=== PATIENT | female | born 1980 | race Caucasian/White ===

== ENCOUNTER 2017-08-16 17:29 | Emergency (ER) | payer BC ==
[~2017-08-16] VITALS: Ht 170.2 cm; Wt 145.2 kg
[~2017-08-16 17:29] MED LIST: CHOLESTYRAMINE P4 GM PO; IBUPROFEN800 MG PO; KEFLEX500 MG PO; MACROBID 100 M100 MG PO; NORCO 5-325 TA1 EACH PO; PEPCID20 MG PO; PERCOCET 5-3251 EACH PO; PROTONIX40 MG PO; PYRIDIUM200 MG PO; SYNTHROID125 MCG PO; ZOFRAN ODT8 MG SL
[2017-08-16] MEDS ORDERED: ZITHROMAX250 MG PO (18:34)
[2017-08-16] MEDS ORDERED: TESSALON PERLE100 MG PO (18:34)
== END 2017-08-16 19:00 | disposition home or self-care (01) ==
LOC: ED 17:29
DX: J40 Bronchitis, not specified as acute or chronic (principal); E89.0 Postprocedural hypothyroidism; Z98.51 Tubal ligation status; Z96.0 Presence of urogenital implants; Z87.442 Personal history of urinary calculi; Z85.850 Personal history of malignant neoplasm of thyroid
CPT/HCPCS: 99283

== ENCOUNTER 2017-08-23 17:32 | Inpatient (IN) | payer BC ==
[~2017-08-23] VITALS: Ht 170.2 cm; Wt 147.9 kg
[~2017-08-23 17:32] MED LIST changes: +TESSALON PERLE100 MG PO; +ZITHROMAX250 MG PO
--- NOTE | 2017-08-23 23:30 | NUR ---
37YR OLD WOMAN ADMITTED FROM ER VIA STRETCHER TO ROOM 112 ACCOMPANIED BY . PT IS ALERT, ORIENTED, ABLE TO STAND AND TRANSFER TO BED WITH MIN ASSIST. SOB WITH ANY EXHERTION, O2 4L/NC. POSITIONED FOR COMFORT WITH HOB UP 30 DEG. ORIENTED TO ROOM AND CALL LIGHT, ORDERS NOTED. DENIES FURTHER NEEDS.
--- NOTE | 2017-08-24 00:19 | NUR ---
PT C/O INCREASING PAIN MID CHEST THRU TO BACK, MAINTAINING OXIMETER 95% ON 4L/NC. FENTANYL 25MCG GIVEN FOR 7/10 PAIN, ASSISTED WITH REPOSITIONING. IS GOING HOME FOR THE EVENING. CALL LIGHT IN EASY REACH.
--- NOTE | 2017-08-24 00:50 | NUR ---
REQUESTED PAIN MEDICATION FOR 5/10 PAIN MID CHEST INTO BACK, COUGH IS BETTER. FENTANYL 25MCG IV GIVEN, ASKED IF SHE CAN HAVE A SANDWICH. BIOSTATISTICS TEACHER NOTIFIED.
--- NOTE | 2017-08-24 01:45 | NUR ---
PT RESTING WITH EYES CLOSED, DENIES DISCOMFORT AT THIS TIME, DECLINES MOTRIN, RESP EVEN AND UNLABORED, OXIMETER 97%, O2 4L/NC. ATE 100% BOX LUNCH PROVIDED. CALL LIGHT IN EASY REACH.
--- NOTE | 2017-08-24 04:45 | NUR ---
SLEEPING, RESP EVEN AND UNLABORED, OXIMETER 96%, CALL LIGHT IN EASY REACH.
--- NOTE | 2017-08-24 05:23 | NUR ---
PAIN MUCH BETTER THIS AM, FENTANYL 25MCG GIVEN X2, ATE BOX LUNCH, LUNGS REMAIN COURSE, INS/EXP WHEEZES THRU OUT. O2 @ 4L/NC. TELE #10 HRR-70S, OXIMETER 97%. HAS NOT BEEN ABLE TO COUGH FOR SPUTUM SAMPLE YET. INSTRUCTIONS GIVEN.
--- NOTE | 2017-08-24 05:45 | NUR ---
LAB IN TO DRAW BLOOD, SBA INTO BATHROOM FOR BM, ONLY MILD SOB WITH ACTIVITY THIS MORNING. TYLENOL GIVEN FOR CABA. MENU GIVEN FOR BREAKFAST.
--- NOTE | 2017-08-24 07:31 | NUR ---
report given from malathi gandara.
--- NOTE | 2017-08-24 07:42 | EKG ---
[facility] [address] [facility] [place] [address] Signed Sinus tachycardia Possible Left atrial enlargement ST \T\ T wave abnormality, consider inferior ischemia Abnormal ECG No previous ECGs available Confirmed by LAVELLE YEUNG MD ([id number]) on 08/24/2017 7:42:16 AM Electronically Signed By: LAVELLE YEUNG MD 08/24/17 0742 PATIENT NAME: MARANDA JOHNSON Electrocardiogram DATE OF : 84 PHYSICIAN: LAVELLE YEUNG MD REPORT #: [id number] REPORT IS CONFIDENTIAL AND NOT TO BE RELEASED WITHOUT AUTHORIZATION
--- NOTE | 2017-08-24 08:20 | NUR ---
PATIENT SLEEPING WITH HOB ELEVATED. WOKE FOR ASSESSMENT. LUNGS COARSE. CONT TO BE ON 4 L PER NC. PATIENT REPORTS INCREASE CHEST AND BACK PAIN WITH COUGH. STATING, " FEELS LIKE SOMEONE IS PUNCHING ME IN THE CHEST". SCHEDULED MOTRIN GIVEN. PRN PAIN MEDICATION GIVEN. PATIENT SAT UP FOR BREAKFAST. SPUTUM SENT TO LAB. SET UP FOR URINE SAMPLE. UPDATED PATIENT ABOUT PLAN OF CARE FOR SHIFT.
--- NOTE | 2017-08-24 08:24 | NUR ---
SET UP SHOWER FOR PATIENT. SHE IS SITTING UP IN BED EATING BREAKFAST.
--- NOTE | 2017-08-24 10:30 | NUR ---
patient given fentenyl for pain medication. titrated to 3 l per nc. scheduled cipro iv started. tesslon perrel given to assist with cough. patient stated that she does not have to void at this time.
--- NOTE | 2017-08-24 11:15 | NUR ---
antibiotic finished. iv flushed. updated dr. norton on patients continue. continue current pain medication plan.
--- NOTE | 2017-08-24 12:14 | NUR ---
PATIENT AMBULATED TO THE BR ON RA. DESATED TO 89 PERCENT. PLACED 3 L ON NC ON PATINET WHEN UP TO 92 PERCENT. PATIENT VOIDED 250MLS OF DARK URINE OUT. SENT TO LAB. PATIENT REQUESTING MORE PAIN MEDICATION AT THIS TIME. PATIENT STATING NO HUNGERY AT THIS TIME.
--- NOTE | 2017-08-24 12:34 | NUR ---
FENTENYL GIVEN FOR 5/10 CHEST AND BACK PAIN.
--- NOTE | 2017-08-24 14:30 | NUR ---
patient assisted into shower. patient had one episode of loose stool. tolerated shower well remains on 2 l per nc sating at 95 percent.
--- NOTE | 2017-08-24 14:56 | NUR ---
patient given fentenyl for pain. scheduled motrin. patient rating pain 5/10. stating that it does improve with pain medication. order lunch at this time. no other needs at this time.
--- NOTE | 2017-08-24 16:00 | NUR ---
PATIENT MOVED ROOMS. IV INFILTRATED. HOLD NEW IV ANTIBIOTIC UNTIL NEW IV.
--- NOTE | 2017-08-24 16:52 | NUR ---
AFTER 4 ATTEMPTS NEW IV STARTED. ANTIBIOTIC STARTED. PAIN MEDICATION GIVEN. PATIENT SET UP FOR DINNER. FAMILY IN ROOM.
--- NOTE | 2017-08-24 17:00 | NUR ---
titrated to ra. will continue to monitor patient. patient tolerating at this time. wob not increased. educated to call if feel sob and feeling like she needs the oxygen. sat monitor in place for constant monitoring.
--- NOTE | 2017-08-24 18:06 | NUR ---
patient finished dinner. tolerating 100 percent of dinner. iv cont to infuse cont to be on ra. tolerating with a sat of 93 percent.
--- NOTE | 2017-08-24 18:17 | NUR ---
titrated to ra. patient had shower today. scheduled motrin, prn tylenol, and prn fetenyl given for pain. patient c/o chest and back pain from coughing. tesslon perals added to assist with cough. sputum sent down and awaiting cx. urine sent down. voiding minimal/ qs. encourage to take po. regular diet. stby assist to br. plan for scheduled echo today.
--- NOTE | 2017-08-24 19:57 | NUR ---
PT UP IN BED. FRIEND AT BEDSIDE. PAIN 12/01 GAVE MOTRIN. NS RUNNING @ 35. IV IN LEFT FORARM. SIDERAILS UPX2. RESPIRATIONS EQUAL AND UNLABBORED. DRY COUGH PRESENT WITH DEEP BREATHING. LUNGS SOUND COARSE IN THE BASES.
--- NOTE | 2017-08-24 22:26 | NUR ---
NURSE NOTIFIED RE LOW OUTPUT.
--- NOTE | 2017-08-25 01:02 | NUR ---
PT SLEEPING COMFORTABLY. NO SIGNS OF DISTRESS AT THIS TIME. CALL LIGHT WITHIN REACH
--- NOTE | 2017-08-25 02:17 | NUR ---
PT SLEEPING. ON TELE 10. HEART RATE 60 IN SYNUS RHYTHM. RESPIRATIONS ARE EQUAL AND NON LABORED. NO INDIUCATION OF PAIN OR DISTRESS AT THIS TIME.
--- NOTE | 2017-08-25 03:13 | NUR ---
PT SLEEPING. SCHEDULED MOTRIN GIVEN. REPORTS NO PAIN AT THIS TIME. CLIDAMYCIN INFUSING. CALL LIGHT AND PERSONAL ITEMS WITHIN REACH.
--- NOTE | 2017-08-25 04:55 | NUR ---
PT HAD UNEVENTFUL NIGHT. SLEPT THROGHOUT THE NIGHT. CLYDOMYCIN GIVEN. TESLON PEARLS AND MOTRIN GIVEN. ECHO PLANNED FOR TODAY.
--- NOTE | 2017-08-25 07:10 | NUR ---
RECIEVED BEDSIDE REPORT FROM JAVI THOMPSON. PT AWAKE, ALERT, DENIED NEEDS.
--- NOTE | 2017-08-25 08:10 | NUR ---
PATIENT RESTING IN BED. PATIENT REFUSED SHOWER. TECH IN ROOM FOR ECHO. WILL APROACH PATIENT ABOUT ADLS LATER THIS AM.
--- NOTE | 2017-08-25 08:16 | NUR ---
NINOSKA, GRIP WRAPPER IN ROOM WITH PT, PREPARING TO DO ECHO. PT GIVEN AM MEDICATIONS. DENIED OTHER NEEDS, ASIDE FROM ACETAMINOPHEN FOR PAIN TO ABDOMEN. GAVE PRN ACETAMINOPHEN.
--- NOTE | 2017-08-25 09:06 | NUR ---
TOOK PT TO THE BR
--- NOTE | 2017-08-25 09:39 | NUR ---
PATIENT RESTING IN BED HANDS AND FACE WASHED. ORAL CARE SET UP FOR USE IN BATHROOM. TALKED TO PATIENT ABOUT BATH WIPES AND CLEAN GOWN FOR THE NEXT TIME SHE GETS UP TO THE BATHROOM. NO OTHER NEEDS AT THIS TIME. FRESH ICE WATER GIVEN. CALL BUTTON IN REACH.
--- NOTE | 2017-08-25 10:11 | NUR ---
MED REC COMPLETE
--- NOTE | 2017-08-25 11:06 | NUR ---
PT IN BED, WATCHING TV. DENIED NEEDS. REPORTED THAT SHE IS HAVING NO PAIN AT THIS TIME.
--- NOTE | 2017-08-25 11:57 | NUR ---
pastoral care into see patient.
--- NOTE | 2017-08-25 13:17 | NUR ---
PATIENT SITTING UP IN BED WATCHING TV. PATIENT ASKED WHEN THE DRSandrine WILL BE IN. SHE STATES THAT SHE'S GETTING RESTLESS. FRESH ICE WATER GIVEN. NO OTHER NEEDS AT THIS TIME.
--- NOTE | 2017-08-25 13:20 | NUR ---
PT SITTING UP IN BED. DENIED PAIN. DENIED NEEDS. REPORTED APETITE AT LUNCH WAS POOR, AND THAT SHE ONLY ATE A LITTLE OF HER LUNCH.
--- NOTE | 2017-08-25 13:48 | NUR ---
PT RESTING-LUNCH WAS BROUGHT BUT HAD YET TO EAT. A LITTLE DROWSY, SAID THIS IS SOMETHING NEW TO HER, WILL LET HER REST-EXTENDED A BLESSING AND WILL FOLLOW NEEDED
[2017-08-25] MEDS ORDERED: IBUPROFEN400 MG PO (13:54)
[2017-08-25] MEDS ORDERED: CLINDAMYCIN HC300 MG PO (13:56)
[2017-08-25] MEDS ORDERED: COLCHICINE0.6 M1 PO (13:57)
[2017-08-25] MEDS ORDERED: PANTOPRAZOLE SO40 MG PO (13:57)
--- NOTE | 2017-08-25 15:33 | NUR ---
GAVE PT DISCHARGE INSTURCTIONS. GAVE PT PRINTED EDUCATION FOR ALL MEDICATIONS THAT SHE IS DISCHARGING ON. PROVIDED VERBAL EDUCATION REGARDING THE PURPOSE FOR EACH MEDICATION, WELL POTENTIAL SIDE EFFECTS TO WATCH FOR FOR EACH MEDICATION. PT VERBALIZED UNDERSTANDING.
[2017-10-11] MEDS ORDERED: NORCO 5-325 TA1 EACH PO (22:20)
[2017-10-11] MEDS ORDERED: IBUPROFEN600 MG PO (22:20)
== END 2017-08-25 15:55 | disposition home or self-care (01) | DRG 314 ==
LOC: ED 17:32 → MS 23:05
PROVIDERS: ADMIT Internal Medicine
DX: I30.9 Acute pericarditis, unspecified (principal); J12.9 Viral pneumonia, unspecified; K52.9 Noninfective gastroenteritis and colitis, unspecified; Z85.850 Personal history of malignant neoplasm of thyroid; Z90.49 Acquired absence of other specified parts of digestive tract
CPT/HCPCS: 36415; 71010; 71260; 80048; 80053; 83520; 83735; 84484; 84703; 85025; 85379; 85651; 86038; 86140; 86225; 86235; 86255; 86256; 87070; 87205; 87449; 87502; 93005; 93010; 93306; 94640; 96374; 96375; 99285; J1885; J2930; J3010; Q9967

== ENCOUNTER 2019-07-09 09:01 | Emergency (ER) | payer BC ==
[~2019-07-09] VITALS: Ht 170.2 cm; Wt 140.7 kg
--- OUTSIDE RECORDS SUMMARY | ~2019-07-09 | XMS | Encounter Summary ---
Demographics + + + | Address | [address] | | | [place] [address] | + + + | Home Phone | | + + + | Preferred Language | Unknown | + + + | Marital Status | | + + + | Yazidism Affiliation | Unknown | + + + | Race | Unknown | + + + | Ethnic Group | Unknown | + + + Author + + + | Author | [facility] | | | and [place] | + + + | Organization | [facility] | | | and [place] | + + + | Address | Unknown | + + + | Phone | Unavailable | + + + Support + + + + + | Name | Relationship | Address | Phone | + + + + + | Ulisses Barcenas | ECON | [address] | | | [place] | | [place] [address] | | + + + + + | Gita Merino | ECON | [address] | | | | | [place], | | | | | [place] [address] | | + + + + + Care Team Providers + +------+ + | Care Heel Stainer Name | Role | Phone | + +------+ + PCP | Unavailable | + +------+ + Encounter Details +--------+ + + + + | Date | Type | Department | Care Team | Description | +--------+ + + + + | 03/10/ | Hospital | [facility] | Britta Pollockncer Saqib, | | | 2011 - | Encounter | [facility] CTR [facility] | [address] | | | | | [address] [place] | [place] | | | 03/11/ | | [place] [address] | [address] | | | 2011 | | [phone] | [phone] | | | | | | | | +--------+ + + + + Social History + +-------+ +--------+------+ | Tobacco Use | Types | Packs/Day | Years | Date | | | | | Used | | + +-------+ +--------+------+ | Never Assessed | | | | | + +-------+ +--------+------+ + + + | Sex Assigned at | Date Recorded | | | | + + + | Not on file | | + + + + + + + | Job Start Date | Occupation | Industry | + + + + | Not on file | Not on file | Not on file | + + + + + + + + | Travel History | Travel Start | Travel End | + + + + + + | No recent travel history available. | + + documented as of this encounter Discharge Summaries Wagner Pollock MD - 03/10/2012 9:31 AM PDTADMISSION DATE: 03/10/2012 DISCHARGE DATE: 03/11/2012 ADMITTING DIAGNOSIS: Papillary thyroid carcinoma, follicular variant, pathologic T1a N0 M X. DISCHARGE DIAGNOSIS: THYROID PAPILLARY CARCINOMA, FOLLICULAR VARIANT, PATHOLOGIC T1A N0 M X. HOSPITAL COURSE: The patient did undergo a total thyroidectomy on 01/26/2012 and now pres ents for an iodine-131 ablation. She was given approximately 50 mCi of iodine-131 on 03/10 and because she did have young children at home , she was brought into the hospital u ntil doses had dropped to sufficient levels. The patient did not experience any acute side effects or toxicity from her treatment while she was in the hospital. The following morning on 03/12/2012 the levels had dropped suffi ciently that she was able to be discharged to home. DISCHARGE INSTRUCTIONS: The patient was instructed to resume her thyroid replacement as p rescirbed by Dr. Masters the day following discharge and to reinitiate the levothyroxine at 150 mcg daily, which is the dose she had been on prior to her ablation. She was to resume a normal diet on 03/12/2012 but was to avoid preparing food for anybody but herself for the following 7 days. She is to follow up with Dr. Masters in the near future for continued th yroid management. She will return and see me following her post iodine-131 scan. She was to call with any questions or concerns prior to that time. DICTATED BY: Wagner Pollock MD Radiation Oncology JOB #: [id number] EXT JOB #:[id number] <Electronicall y Signed by Wagner Pollock MD> 03/25/121952 documented in this encounter Plan of Treatment Not on filedocumented as of this encounter Visit Diagnoses Not on filedocumented in this encounter"
--- OUTSIDE RECORDS SUMMARY | ~2019-07-09 | XMS | Encounter Summary ---
Demographics + + + | Address | [address] | | | [place] [address] | + + + | Home Phone | | + + + | Preferred Language | Unknown | + + + | Marital Status | | + + + | Advent Affiliation | Unknown | + + + | Race | Unknown | + + + | Ethnic Group | Unknown | + + + Author + + + | Author | [facility] | | | and [place] | + + + | Organization | [facility] | | | and [place] | [...] | | [place] | | [place] [address] | | + + + + + | Gita Merino | ECON | [address] | | | | | [place], | | | | | [place] [address] | | + + + + + Care Team Providers + +------+ + | Care Big Data Lead Name | Role | Phone | + +------+ + PCP | Unavailable | + +------+ + Encounter Details +--------+ + + + + | Date | Type | Department | Care Team | Description | +--------+ + + + + | 03/10/ | Hospital | [facility] | Britta Pollockncer Saqib, | | | 2011 - | Encounter | MED CTR MEDICAL | [address] | | | | | [address] [place] | [place] | | | 03/11/ | | [place] [address] | [address] | | | 2011 | | [phone] | [phone] | | | | | | | [...] Wagner Pollock MD Radiation Oncology JOB #: [id number] EXT JOB #:[id number] <Electronicall y Signed by Wagner Pollock MD> 03/25/121952 documented in this encounter Plan of Treatment Not on filedocumented as of this encounter Visit Diagnoses Not on filedocumented in this encounter"
--- OUTSIDE RECORDS SUMMARY | ~2019-07-09 | XMS | Encounter Summary ---
Demographics + + + | Address | [address] | | | [place] [address] | + + + | Home Phone | | + + + | Preferred Language | Unknown | + + + | Marital Status | | + + + | Jew Affiliation | Unknown | + + + | Race | Unknown | + + + | Ethnic Group | Unknown | + + + Author + + + | Author | [facility] | | | and [place] | + + + | Organization | [facility] | | | and [place] [...] | | [place] | | [place] [address] | | + + + + + | Gita Merino | ECON | [address] | | | | | [place], | | | | | [place] [address] | | + + + + + Care Team Providers + +------+ + | Care Personnel Records Clerk Name | Role | Phone | + +------+ + PCP | Unavailable | + +------+ + Encounter Details +--------+ + + + + | Date | Type | Department | Care Team | Description | +--------+ + + + + | 03/10/ | Hospital | [facility] | Phill Wagner Saqib, | | | 2011 | Encounter | MED CTR XRAY [address] | MD [address] | | | | | [place] | [place], [place] | | | | | [place] [address] | [address] | | | | | [phone] | [phone] | | | | | | | [...]
--- OUTSIDE RECORDS SUMMARY | ~2019-07-09 | XMS | Encounter Summary ---
Demographics + + + | Address | [address] | | | [place] [address] | + + + | Home Phone | | + + + | Preferred Language | Unknown | + + + | Marital Status | | + + + | Jehovah'S Witness Affiliation | Unknown | + + + | Race | Unknown | + + + | Ethnic Group | Unknown | + + + Author + + + | Author | [facility] | | | and [place] | + + + | Organization | [facility] | | | and [place] | + + + | Address | Unknown | + + + | Phone | Unavailable | + + + Support + + + + + | Name | Relationship | Address | Phone | + + + + + | Ulisses Barcenas | ECON | [address] | | | [place] | | [place] [address] | | + + + + + | Gita Merino | ECON | [address] | | | | | [place], | | | | | [place] [address] | | + + + + + Care Team Providers + +------+ + | Care [place] Administrator Name | Role | Phone | + +------+ + PCP | Unavailable | + +------+ + Encounter Details +--------+ + + + + | Date | Type | Department | Care Team | Description | +--------+ + + + + | 04/01/ | Hospital | [facility] | Wagner Pollock, | | | 2013 | Encounter | MED CTR CANCER | [place] [address] | | | | | [place] [address] | [place], [place] | | | | | [place], [place] | [address] | | | | | [address] | [phone] | | | | | [phone] | | | +--------+ + + + [...]
--- OUTSIDE RECORDS SUMMARY | ~2019-07-09 | XMS | Encounter Summary ---
Demographics + + + | Address | [address] | | | [place] [address] | + + + | Home Phone | | + + + | Preferred Language | Unknown | + + + | Marital Status | | + + + | Congregational Affiliation | Unknown | + + + | Race | Unknown | + + + | Ethnic Group | Unknown | + + + Author + + + | Author | [facility] | | | and [place] | + + + | Organization | [facility] | | | and [place] | + + + | Address | Unknown | + + + | Phone | Unavailable | + + + Support + + + + + | Name | Relationship | Address | Phone | + + + + + | Ulisses Barcenas | ECON | [address] | | | [place] | | [place] [address] | | + + + + + | Gita Merino | ECON | [address] | | | | | [place], | | | | | [place] [address] | | + + + + + Care Team Providers + +------+ + | Care Quiller Operator Name | Role | Phone | + +------+ + | Kajal Hernandez | PCP | | | MD | | | + +------+ + Reason for Visit +--------+ + | Reason | Comments | +--------+ + | URI | x 1 wk; purulent phlegm/sinus drainage, bilateral hearing loss | +--------+ + Encounter Details +--------+---------+ + + + | Date | Type | Department | Care Team | Description | +--------+---------+ + + + | 10/29/ | Office | [facility] | Ines Barker | Allergic rhinitis, | | 2019 | Visit | [address] [address] | [address]LU[address] | unspecified | | | | [address] | DORITA VAZQUEZ | seasonality, | | | | [address] [facility] | [place] [address] | unspecified trigger | | | | [place] [address] | [phone] | (Primary Dx) | | | | [phone] | | | +--------+---------+ + + + Social History + +-------+ +--------+------+ | Tobacco Use | Types | Packs/Day | Years | Date | | | | | Used | | + +-------+ +--------+------+ | Never Smoker | | | | | + +-------+ +--------+------+ + +---+---+---+ | Smokeless Tobacco: | | | | | Never Used | | | | + +---+---+---+ + + | Tobacco Cessation: Counseling Given: No | + + + + +---------+ + | Alcohol Use [...] + + + | Blood Pressure | 120/80 | 10/29/2018 6:26 PM | | | | | PST | | + + + + + | Pulse | 92 | 10/29/2018 6:26 PM | | | | | PST | | + + + + + | Temperature | 36.8 C (98.3 F) | 10/29/2018 6:26 PM | | | | | PST | | + + + + + | Respiratory Rate | 20 | 10/29/2018 6:26 PM | | | | | PST | | + + + + + | Oxygen Saturation | 98% | 10/29/2018 6:26 PM | | | | | PST | | + + + + + | Inhaled Oxygen | - | - | | | Concentration | | | | + + + + + | Weight | - | - | | + + + + + | Height | 170.2 cm (5' 7") | 10/29/2018 6:26 PM | | | | | PST | | + + + + + | Body Mass Index | - | - | | + + + + + documented in this encounter Patient Instructions Patient Instructions Mj Inesандрей Goetz, JLUIS - 10/29/2018 6:51 PM PST Allergic Rhinitis Allergic rhinitis is an allergic reaction that affects the nose, and often the eyes. It s often known asnasal allergies. Nasal allergies are often due to things in the environment that are breathed in. Depending what you are sensitive to, nasal allergies may occur only d uring certain seasons. Or they may occur year round. Common indoor allergens include house d ust mites, mold, cockroaches, and pet dander. Outdoor allergens include pollen from trees, g rasses, and weeds. Symptoms include a drippy, stuffy, and itchy nose. They also include sneezing and red and i tchy eyes. You may feel tired more often. Severe allergies may also affect your breathing an d trigger a condition called asthma. Tests can be done to see what allergens are affecting you. You may be referred to an allerg y specialist for testing and further evaluation. Home care Your healthcare provider may prescribe medicines to help relieve allergy symptoms. These ma y include oral medicines, nasal sprays, or eye drops. Ask your provider for advice on how to avoid substances that you are allergic to.Below ar e a few tips for each type of allergen. Pet dander: Do not have pets with fur and feathers. If you can't avoid having a pet, keep it out of your bedroom and off upholstered furnitu re. Pollen: When pollen counts are high, keep windows of your car and home closed. If possible, use an air conditioner instead. Wear a filter mask when mowing or doing yard work. House dust mites: Wash bedding every week in warm water and detergent and dry on a hot setting. Cover the mattress, box spring, and pillows with allergy covers. If possible, sleep in a room with no carpet, curtains, or upholstered furniture. Cockroaches: Store food in sealed containers. Remove garbage from the home promptly. Fix water leaks Mold: Keep humidity low by using a dehumidifier or air conditioner. Keep the dehumidifier and air conditioner clean and free of mold. Clean moldy areas with bleach and water. In general: Vacuum once or twice a week. If possible, use a vacuum with a high-efficiency particulat e air (HEPA) filter. Do not smoke. Avoid cigarette smoke. Cigarette smoke is an irritant that can make sympto ms worse. Follow-up care Follow up as advised by the healthcare provider or our staff. If you were referred to an al bismarkgy specialist, make this appointment promptly. When to seek medical advice Call your healthcare provider right away if the following occur: Coughing or wheezing Fever of 100.4F (38C) or higher, or as directed by your healthcare provider Raised red bumps (hives) Continuing symptoms, new symptoms, or worsening symptoms Call 911if you have: Trouble breathing Severe swelling of the face or severe itching of the eyes or mouth Date Last Reviewed: 10/22/201619994241-9810 [employer]. [address] [place] [address]. All righ ts reserved. This information is not intended as a substitute for professional medical care. Always follow your healthcare professional's instructions. Treating Viral Respiratory Illness in Children Viral respiratory illnesses include colds, the flu, and RSV (respiratory syncytial virus). Treatment will focus on relieving your child s symptoms and ensuring that the infection do es not get worse. Antibiotics are not effective against viruses. Always see your child s h ealthcare providerif your child has trouble breathing. Helping your child feel better Give your child plenty offluids, such as water or apple juice. Make sure your child gets plenty of rest. Keep your infant s nose clear. Use a rubber bulb suction device to remove mucus as nee ded. Don't be aggressive when suctioning. This may cause more swelling and discomfort. Raisethe head ofyour child's bed slightlyto make breathing easier. Run a cool-mist humidifier or vaporizer in your child s room to keep the air moist and nasal passages clear. Don't let anyonesmoke near your child. Treat your child s fever with acetaminophen. In infants 6 months or older, you may use ibuprofeninstead to help reduce the fever. Never give aspirin to a child under age 18. It could cause a rare but serious condition called Kimberly syndrome. When to seek medical care Most children get over colds and flu on their own in time, with rest and care from you. Daljit stanley your child'shealthcare provider if your child: Has a fever of 100.4F (38C) in a baby younger than 3 months Has a repeated fever of 104F (40C) or higher Has nausea or vomiting, orcan t keep even small amounts of liquid down Hasn t urinated for 6 hours or more, or has dark or strong-smelling urine Has a harshcough, a cough that doesn't get better, wheezing,or trouble breathing Has bad or increasing pain Develops a skin rash Is very tired or lethargic Develops a blue color to the skin around the lips or on the fingers or toes Date Last Reviewed: 08/24/201619993569-6718 [employer]. [address] [place] [address]. All righ ts reserved. This information is not intended as a substitute for professional medical care. Always follow your healthcare professional's instructions. documented in this encounter Progress Notes Ines Barker ARNP - 10/29/2018 6:20 PM PSTFormatting of this note might be differen t from the original. Subjective: Supriya Alvarez is a 38 y.o. female who presents to the clinic with a complaint of URI (x 1 wk; purulent phlegm/sinus drainage, bilateral hearing loss) URI This is a new problem. The current episode started in the past 7 days. The problem has been gradually worsening. There has been no fever. Associated symptoms include congestion, cough ing, ear pain, headaches, rhinorrhea, sneezing and a sore throat. Pertinent negatives includ e no plugged ear sensation or wheezing. Allergies Allergen Reactions Gabapentin Swelling Metronidazole Rash Medications: Patient Reported Taking Dosage cholestyramine light (QUESTRAN) 4 g packet (Taking) Take 4 g by mouth Daily. Number of times this order has been changed since signin Order Audit Ringold ibuprofen (ADVIL, MOTRIN) 200 mg tablet (Taking) Take 400 mg by mouth Daily as needed. levothyroxine (SYNTHROID) 150 mcg tablet (Taking) levothyroxine (SYNTHROID) 200 mcg tablet (Taking/Discontinued) Take 125 mcg by mouth ever y morning (before breakfast). Number of times this order has been changed since signin Order Audit Ringold Past Medical History She has a past medical history of Cancer (HCC); DDD (degenerative disc disease), lumbar (); Left lumbar radiculitis (09/16/2013); and Thyroid disease. Past Surgical History She has a past surgical history that includes Thyroidectomy (2011); Tonsillectomy; Cholecys tectomy; section; Tubal ligation; and kidney stent (2005,2007,2009). Social History Substance Use Topics Smoking status: Never Smoker Smokeless tobacco: Never Used Alcohol use No Review of Systems Constitutional: Positive for fatigue. Negative for fever. HENT: Positive for congestion, ear pain, postnasal drip, rhinorrhea, sneezing and sore thro at. Respiratory: Positive for cough. Negative for shortness of breath and wheezing. Neurological: Positive for headaches. See HPI Objective: Vitals: 10/29/18 1826 BP: 120/80 Pulse: 92 Resp: 20 Temp: 36.8 C (98.3 F) TempSrc: Oral SpO2: 98% Height: 1.702 m (5' 7") No LMP recorded. Physical Exam Constitutional: She is oriented to person, place, and time. Vital signs are normal. She yasmani ears well-developed and well-nourished. She is cooperative. She does not appear ill. No dist ress. HENT: Head: Normocephalic and atraumatic. Right Ear: Hearing, tympanic membrane, external ear and ear canal normal. Tympanic membrane is not erythematous and not bulging. Left Ear: Hearing, tympanic membrane, external ear and ear canal normal. Tympanic membrane is not erythematous and not bulging. Nose: Mucosal edema present. No rhinorrhea. Right sinus exhibits no frontal sinus tendernes s. Left sinus exhibits no frontal sinus tenderness. Mouth/Throat: Uvula is midline, oropharynx is clear and moist and mucous membranes are norm al. No trismus in the jaw. No uvula swelling. No oropharyngeal exudate, posterior oropharyng eal edema, posterior oropharyngeal erythema or tonsillar abscesses. Eyes: Pupils are equal, round, and reactive to light. Conjunctivae and lids are normal. Neck: Neck supple. Cardiovascular: Normal rate, regular rhythm and normal heart sounds. Pulmonary/Chest: Effort normal and breath sounds normal. No stridor. No respiratory distres s. She has no wheezes. Lymphadenopathy: She has no cervical adenopathy. Neurological: She is alert and oriented to person, place, and time. Skin: Skin is warm and dry. No rash noted. Psychiatric: She has a normal mood and affect. Her behavior is normal. Nursing note and vitals reviewed. No results found for this or any previous visit (from the past 24 hour(s)). Assessment: 1. Allergic rhinitis, unspecified seasonality, unspecified trigger Plan: 1. Allergic rhinitis, unspecified seasonality, unspecified trigger See AVS for patient instructions. Diagnosis and plan including medications and side effects were discussed with the patient a nd information handout was given. Patient voices understanding of the plan and all questions were answered. No Follow-up on file. documented in this encounter Plan of Treatment Not on filedocumented as of this encounter Visit Diagnoses + + | Diagnosis | + + | Allergic rhinitis, unspecified seasonality, unspecified trigger - Primary | + + documented in this encounter
--- OUTSIDE RECORDS SUMMARY | ~2019-07-09 | XMS | Encounter Summary ---
Demographics + + + | Address | [address] | | | [place] [address] | + + + | Home Phone | | + + + | Preferred Language | Unknown | + + + | Marital Status | | + + + | Episcopal Affiliation | Unknown | + + + | Race | Unknown | + + + | Ethnic Group | Unknown | + + + Author + + + | Author | [facility] | | | and [place] | + + + | Organization | [facility] | | | and [place] | + + + | Address | Unknown | + + + | Phone | Unavailable | + + + Support + + + + + | Name | Relationship | Address | Phone | + + + + + | Ulisses Bacrenas | ECON | [address] | | | [place] | | [place] [address] | | + + + + + | Gita Merino | ECON | [address] | | | | | [place], | | | | | [place] [address] | | + + + + + Care Team Providers + +------+ + | Care Supervisor Hot Dip Tinning Name | Role | Phone | + +------+ + | Kajal Hernandez | PCP | | | MD | | | + +------+ + Reason for Visit + + + | Reason | Comments | + + + | Headache (Adult - | | | New Onset Or New | | | Symptoms) | | + + + Encounter Details +--------+ + + + + | Date | Type | Department | Care Team | Description | +--------+ + + + + | 03/22/ | Emergency | [facility] | Hal Dominguez | Headache, | | 2017 | | [facility] | MD [place] [address] | unspecified headache | | | | CENTER [address] | [address] | type (Primary Dx); | | | | [place] | [place] [address] | Acute pain; Nausea | | | | [address] | [phone] | | | | | [phone] | | | +--------+ + + + [...] + + + | Blood Pressure | 130/67 | 03/22/2017 8:18 PM | | | | | PDT | | + + + + + | Pulse | 70 | 03/22/2017 8:18 PM | | | | | PDT | | + + + + + | Temperature | 35.7 C (96.3 F) | 03/22/2017 6:00 PM | | | | | PDT | | + + + + + | Respiratory Rate | 16 | 03/22/2017 8:18 PM | | | | | PDT | | + + + + + | Oxygen Saturation | 96% | 03/22/2017 8:18 PM | | | | | PDT | | + + + + + | Inhaled Oxygen | - | - | | | Concentration | | | | + + + + + | Weight | 149.7 kg (330 lb) | 03/22/2017 6:00 PM | | | | | PDT | | + + + + + | Height | 170.2 cm (5' 7") | 03/22/2017 6:00 PM | | | | | PDT | | + + + + + | Body Mass Index | 51.69 | 03/22/2017 6:00 PM | | | | | PDT | | + + + + + documented in this encounter Discharge Instructions AttachmentsThe following attachments cannot be sent through Care Everywhere.Headache, Unspe cified (Irish)documented in this encounter Medications at Time of Discharge + + + +---------+--------+ + | Medication | Sig | Dispensed | Refills | Start | End Date | | | | | | Date | | + + + +---------+--------+ + | cholestyramine | Take 4 g by mouth | | 0 | | | | light (QUESTRAN) 4 g | Daily. | | | | | | packet | | | | | | + + + +---------+--------+ + | ibuprofen (ADVIL, | Take 400 mg by mouth | | 0 | | | | MOTRIN) 200 mg | Daily as needed. | | | | | | tablet | | | | | | + + + +---------+--------+ + | levothyroxine | Take 125 mcg by | | 0 | | | | (SYNTHROID) 200 mcg | mouth every morning | | | | 9 | | tablet | (before breakfast). | | | | | + + + +---------+--------+ + | liothyronine | Take 5 mcg by mouth | | 0 | | | | (CYTOMEL) 5 mcg | Daily. | | | | 8 | | tablet | | | | | | + + + +---------+--------+ + documented as of this encounter Plan of Treatment Not on filedocumented as of this encounter Procedures + +--------+ + + + | Procedure Name | Priori | Date/Time | Associated Diagnosis | Comments | | | ty | | | | + +--------+ + + + | CT ANGIOGRAM HEAD | STAT | 03/22/2017 | | Results for this | | NECK ACUTE STROKE | | 6:58 PM | | procedure are in the | | | | PDT | | results section. | + +--------+ + + + | PROTIME INR | STAT | 03/22/2017 | | Results for this | | | | 6:29 PM | | procedure are in the | | | | PDT | | results section. | + +--------+ + + + | CBC WITH | STAT | 03/22/2017 | | Results for this | | DIFFERENTIAL | | 6:29 PM | | procedure are in the | | | | PDT | | results section. | + +--------+ + + + | , SERUM, | STAT | 03/22/2017 | | Results for this | | QUAL | | 6:29 PM | | procedure are in the | | | | PDT | | results section. | + +--------+ + + + | COMPREHENSIVE | STAT | 03/22/2017 | | Results for this | | METABOLIC PANEL | | 6:29 PM | | procedure are in the | | | | PDT | | results section. | + +--------+ + + + documented in this encounter Results CT Angiogram Head Neck Acute Stroke (03/22/2017 6:58 PM PDT) + + | Specimen | + + | | + + + + + | Narrative | Performed At | + + + | EXAM: CT ANGIOGRAM HEAD NECK ACUTE STROKE dated 03/22/2017 6:32 PM | [facility] | | HISTORY: Suspect Acute Stroke Comparison: None. TECHNIQUE: | | | Noncontrast CT is performed from the top of calvarium through the | | | skull base. Coronal and sagittal reformats are performed. Post | | | contrast imaging was performed following the arterial timed | | | intravenous injection of 95 mL of Omnipaque 350. DOSE: DLP 848.08 | | | mGy-cm FINDINGS: BRAIN: There is mild cerebral atrophy. | | | There is appropriate associated prominence of the ventricles. No | | | areas of increased attenuation to suggest intracranial hemorrhage. | | | There is no mass, mass effect, or midline shift. There are no | | | abnormal extra-axial fluid or air collections. There is | | | preservation of the key-white differentiation at this time. There | | | is no significant white matter disease. SCALP/ CALVARIUM: The | | | scalp and skull are intact and are unremarkable. SINUSES / ORBITS/ | | | MASTOIDS: The visible mastoid air cells and paranasal sinuses are | | | clear. The globes and retroconal contents are intact and are | | | unremarkable. HEAD CTA: Intracranial vasculature is diffusely | | | small in caliber. The distal vertebral arteries are patent. The | | | left posterior inferior cerebellar arteries visibly patent. | | | Bilateral anterior inferior cerebellar arteries are faintly visible. | | | Bilateral superior cerebellar arteries are visibly patent. There | | | is very minimal irregularity of the patent left P1 component of the | | | posterior cerebral artery. The left is widely patent. There is a | | | patent left posterior communicating artery. The intracranial | | | internal carotid arteries are widely patent. Ophthalmic arteries | | | are visible bilaterally. Middle cerebral arteries bilaterally are | | | patent. Anterior cerebral arteries are patent. There is a patent | | | anterior communicating artery. No areas of aneurysmal dilatation. | | | The visible brain parenchyma shows no areas of abnormal enhancement. | | | NECK CTA: Aorta: The aorta is patent. It is not aneurysmal. | | | The brachiocephalic artery, right subclavian artery, and visible | | | right axillary artery are patent. The left subclavian and visible | | | axillary arteries are patent. Right: The origin of the right | | | common carotid artery is widely patent. The right common carotid | | | and internal carotid arteries are disease free. No irregularity in | | | either vessel. The right vertebral artery is codominant. Its | | | origin is widely patent. The vessel is patent throughout its | | | extracranial extent. Left: The origin of the left common carotid | | | artery is widely patent. The common carotid and internal carotid | | | arteries are disease free. No vascular irregularity. The origin of | | | the left vertebral artery is widely patent. The left vertebral | | | artery is patent throughout its extracranial extent. There is | | | venous and contamination limiting the visualization of the C1-C2 | | | portions of the vertebral arteries bilaterally. No cervical | | | lymphadenopathy. No mass effect upon the airway. The visible lung | | | apices are clear. The osseous structures are unremarkable. | | | IMPRESSION - No acute intracranial process. Diffusely small | | | caliber intracranial vasculature. Minimal irregularity of the P1 | | | segment of the left posterior cerebral artery. No significant | | | large vessel stenosis or aneurysmal dilatation. No evidence for | | | vascular dissection. No significant stenosis in the common carotid | | | or internal carotid arteries. There is venous contamination | | | limiting the visualization of the C1-C2 portions of the vertebral | | | arteries. The preliminary report is provided by Dr. Mckeon on February | | | 2016 at 7:15 PM. Dictated and Signed by: Arcenio Sarmiento | | MD Nika Electronically signed: 03/23/2017 8:50 AM | | + + + + + | Procedure Note | + + | Kristofer, Rad Results In - 03/23/2017 8:53 AM PDT EXAM: CT ANGIOGRAM HEAD NECK ACUTE | | STROKE dated 03/22/2017 6:32 PMHISTORY: Suspect Acute StrokeComparison: None.TECHNIQUE: | | Noncontrast CT is performed from the top of calvarium through theskull base. Coronal | | and sagittal reformats are performed. Post contrastimaging was performed following the | | arterial timed intravenous injection of 95mL of Omnipaque 350.DOSE: DLP 848.08 | | mGy-cmFINDINGS: BRAIN: There is mild cerebral atrophy. There is appropriate | | associatedprominence of the ventricles. No areas of increased attenuation to | | suggestintracranial hemorrhage. There is no mass, mass effect, or midline shift. There | | are no abnormal extra-axial fluid or air collections. There ispreservation of the | | key-white differentiation at this time. There is nosignificant white matter disease. | | SCALP/ CALVARIUM: The scalp and skull are intact and are unremarkable.SINUSES / ORBITS/ | | MASTOIDS: The visible mastoid air cells and paranasal sinusesare clear. The globes and | | retroconal contents are intact and are unremarkable.HEAD CTA:Intracranial vasculature is | | diffusely small in caliber. The distal vertebralarteries are patent. The left | | posterior inferior cerebellar arteries visiblypatent. Bilateral anterior inferior | | cerebellar arteries are faintly visible. Bilateral superior cerebellar arteries are | | visibly patent. There is veryminimal irregularity of the patent left P1 component of | | the posterior cerebralartery. The left is widely patent. There is a patent left | | posteriorcommunicating artery. The intracranial internal carotid arteries are | | widelypatent. Ophthalmic arteries are visible bilaterally. Middle cerebral | | arteriesbilaterally are patent. Anterior cerebral arteries are patent. There is | | apatent anterior communicating artery. No areas of aneurysmal dilatation.The visible | | brain parenchyma shows no areas of abnormal enhancement.NECK CTA:Aorta: The aorta is | | patent. It is not aneurysmal. The brachiocephalic artery,right subclavian artery, and | | visible right axillary artery are patent. The leftsubclavian and visible axillary | | arteries are patent.Right: The origin of the right common carotid artery is widely | | patent. Theright common carotid and internal carotid arteries are disease free. | | Noirregularity in either vessel. The right vertebral artery is codominant. Itsorigin | | is widely patent. The vessel is patent throughout its extracranialextent.Left: The | | origin of the left common carotid artery is widely patent. The commoncarotid and | | internal carotid arteries are disease free. No vascularirregularity.The origin of the | | left vertebral artery is widely patent. The left vertebralartery is patent throughout | | its extracranial extent.There is venous and contamination limiting the visualization of | | the C1-X4wgaswkbv of the vertebral arteries bilaterally.No cervical lymphadenopathy. No | | mass effect upon the airway. The visible lungapices are clear.The osseous structures | | are unremarkable.IMPRESSION -No acute intracranial process.Diffusely small caliber | | intracranial vasculature. Minimal irregularity of theP1 segment of the left posterior | | cerebral artery.No significant large vessel stenosis or aneurysmal dilatation.No | | evidence for vascular dissection.No significant stenosis in the common carotid or | | internal carotid arteries.There is venous contamination limiting the visualization of | | the C1-C2 portionsof the vertebral arteries.The preliminary report is provided by | | Mike on March 22, 2017 at 7:15 PM.Dictated and Signed by: Arcenio Maher MD | | Electronically signed: 03/23/2017 8:50 AM | | | |Aorta: The aorta is patent. It is not aneurysmal. The brachiocephalic artery, | |right subclavian artery, and visible right axillary artery are patent. The left | |subclavian and visible axillary arteries are patent. | | | |Right: The origin of the right common carotid artery is widely patent. The | |right common carotid and internal carotid arteries are disease free. No | |irregularity in either vessel. The right vertebral artery is codominant. Its | |origin is widely patent. The vessel is patent throughout its extracranial | |extent. | | | |Left: The origin of the left common carotid artery is widely patent. The common | |carotid and internal carotid arteries are disease free. No vascular | |irregularity. | |The origin of the left vertebral artery is widely patent. The left vertebral | |artery is patent throughout its extracranial extent. | | | |There is venous and contamination limiting the visualization of the C1-C2 | |portions of the vertebral arteries bilaterally. | | | |No cervical lymphadenopathy. No mass effect upon the airway. The visible lung | |apices are clear. | | | |The osseous structures are unremarkable. | | | |IMPRESSION - | | | |No acute intracranial process. | | | |Diffusely small caliber intracranial vasculature. Minimal irregularity of the | |P1 segment of the left posterior cerebral artery. | | | |No significant large vessel stenosis or aneurysmal dilatation. | | | |No evidence for vascular dissection. | | | |No significant stenosis in the common carotid or internal carotid arteries. | | | |There is venous contamination limiting the visualization of the C1-C2 portions | |of the vertebral arteries. | | | |The preliminary report is provided by Dr. Mckeon on March 22, 2017 at 7:15 PM. | | | | | | | |Dictated and Signed by: Arcenio Maher MD | | Electronically signed: 03/23/2017 8:50 AM | + + + +---------+ + + | Performing | Address | City/State[facility] | Phone Number | | Organization | | | | + +---------+ + + | [facility] | | | | + +---------+ + + Protime INR (03/22/2017 6:29 PM PDT) + + + + + + | Component | Value | Ref Range | Performed | Pathologist | | | | | At | Signature | + + + + + + | Prothrombin | 13.6 | 11.3 - 13.9 | [facility] | | | Time | | seconds | [facility] | | | | | | MEDICAL | | | | | | CENTER - | | | | | | LABORATORY | | + + + + + + | INR | 1.02Comment: Usual Oral | 0.90 - 1.10 | [facility] | | | | Anticoagulation Range: | | [facility] | | | | 2.0 - 3.0High | | MEDICAL | | | | Level Oral | | CENTER - | | | | Anticoagulation Range: | | LABORATORY | | | | 2.5 - 3.5 | | | | + + + + + + + + | Specimen | + + | Blood | + + + + + + + | Performing | Address | City/State/Zipcode | Phone Number | | Organization | | | | + + + + + | [facility] | [address] | [place], [place] | [phone] | | [facility] | | [address] | | | - LABORATORY | | | | + + + + + , Serum, Qual (03/22/2017 6:29 PM PDT) + + + + + + | Component | Value | Ref Range | Performed | Pathologist | | | | | At | Signature | + + + + + + | hCG Screen, | Negative | Negative | [facility] | | | Serum | | | [facility] | | | | | | MEDICAL | | | | | | CENTER - | | | | | | LABORATORY | | + + + + + + + + | Specimen | + + | Blood | + + + + + + + | Performing | Address | City/State/[facility] | Phone Number | | Organization | | | | + + + + + | [facility] | [address] | [place] | [phone] | | [facility] | | [address] | | | - LABORATORY | | | | + + + + + Comprehensive Metabolic Panel (03/22/2017 6:29 PM PDT) + + + + + + | Component | Value | Ref Range | Performed | Pathologist | | | | | At | Signature | + + + + + + | Na | 138 | 136 - 149 | [facility] | | | | | mmol/L | [facility] | | | | | | [facility]ICAL | | | | | | CENTER - | | | | | | LABORATORY | | + + + + + + | K | 3.6 | 3.5 - 5.1 | [facility] | | | | | mmol/L | [facility] | | | | | | MEDICAL | | | | | | CENTER - | | | | | | LABORATORY | | + + + + + + | Cl | 109 | 98 - 109 mmol/L | [facility] | | | | | | [facility] | | | | | | MEDICAL | | | | | | CENTER - | | | | | | LABORATORY | | + + + + + + | CO2 | 21 (L) | 24 - 31 mmol/L | [facility] | | | | | | [facility] | | | | | | MEDICAL | | | | | | CENTER - | | | | | | LABORATORY | | + + + + + + | Anion Gap | 8 | 3 - 16 mmol/L | [facility] | | | | | | [facility] | | | | | | [facility] | | | | | | CENTER - | | | | | | LABORATORY | | + + + + + + | Glucose | 127 (H) | 70 - 109 mg/dL | [facility] | | | | | | [facility] | | | | | | MEDICAL | | | | | | CENTER - | | | | | | LABORATORY | | + + + + + + | BUN | 8 | 7 - 18 mg/dL | [facility] | | | | | | [facility] | | | | | | MEDICAL | | | | | | CENTER - | | | | | | LABORATORY | | + + + + + + | Creatinine | 0.82 | 0.60 - 1.30 | [facility] | | | | | mg/dL | [facility] | | | | | | MEDICAL | | | | | | CENTER - | | | | | | LABORATORY | | + + + + + + | eGFR if not | >60Comment: GLOMERULAR | >=60 | [facility] | | | | FILTRATION | mL/min/1.73m2 | [facility] | | | [place] | RATE,ESTIMATED | | MEDICAL | | | | mL/min/1.15r0Ctvm than | | CENTER - | | | | 60 Chronic kidney | | LABORATORY | | | | disease,if found over a | | | | | | 3-month period.Less than | | | | | | 15 Kidney failureFor | | | | | | | | | | | | Americans,multiply the | | | | | | calculated GFR by 1.21. | | | | | | | | | | + + + + + + | Calcium | 9.0 | 8.3 - 10.5 | [facility] | | | | | mg/dL | [facility] | | | | | | MEDICAL | | | | | | CENTER - | | | | | | LABORATORY | | + + + + + + | Albumin | 3.7 | 3.2 - 5.0 g/dL | [facility] | | | | | | [facility] | | | | | | MEDICAL | | | | | | CENTER - | | | | | | LABORATORY | | + + + + + + | Bilirubin | 0.7Comment: This is an | 0.1 - 1.5 mg/dL | [facility] | | | Total | appended report. These | | [facility] | | | | results have been | | MEDICAL | | | | appended to a previously | | CENTER - | | | | preliminary verified | | LABORATORY | | | | report. | | | | + + + + + + | Total | 7.3 | 6.0 - 7.8 g/dL | [facility] | | | Protein | | | [facility] | | | | | | MEDICAL | | | | | | CENTER - | | | | | | LABORATORY | | + + + + + + | AST | 37Comment: This is an | 10 - 42 U/L | [facility] | | | | appended report. These | | [facility] | | | | results have been | | MEDICAL | | | | appended to a previously | | CENTER - | | | | preliminary verified | | LABORATORY | | | | report. | | | | + + + + + + | ALT | 44Comment: This is an | 6 - 45 U/L | [facility] | | | | appended report. These | | [facility] | | | | results have been | | MEDICAL | | | | appended to a previously | | CENTER - | | | | preliminary verified | | LABORATORY | | | | report. | | | | + + + + + + | Alkaline | 84Comment: This is an | 40 - 110 U/L | [facility] | | | Phosphatase | appended report. These | | [facility] | | | | results have been | | MEDICAL | | | | appended to a previously | | CENTER - | | | | preliminary verified | | LABORATORY | | | | report. | | | | + + + + + + | Globulin | 3.6 | 2.1 - 3.8 g/dL | [facility] | | | | | | [facility] | | | | | | MEDICAL | | | | | | CENTER - | | | | | | LABORATORY | | + + + + + + | Albumin/Mary Kay | 1.0 | 0.8 - 2.0 | [facility] | | | bulin Ratio | | | [facility] | | | | | | MEDICAL | | | | | | CENTER - | | | | | | LABORATORY | | + + + + + + | BUN/Creatin | 9.8 | | [facility] | | | ine Ratio | | | [facility] | | | | | | MEDICAL | | | | | | CENTER - | | | | | | LABORATORY | | + + + + + + + + | Specimen | + + | Blood | + + + + + + + | Performing | Address | City/State/Zipcode | Phone Number | | Organization | | | | + + + + + | [facility] | [address] | [place] | [phone] | | [facility] | | [address] | | | - LABORATORY | | | | + + + + + CBC with Differential (03/22/2017 6:29 PM PDT) + + + + + + | Component | Value | Ref Range | Performed | Pathologist | | | | | At | Signature | + + + + + + | WBC | 9.6 | 4.0 - 11.0 K/uL | [facility] | | | | | | [facility] | | | | | | MEDICAL | | | | | | CENTER - | | | | | | LABORATORY | | + + + + + + | RBC | 4.43 | 3.70 - 5.20 | [facility] | | | | | M/uL | [facility] | | | | | | MEDICAL | | | | | | CENTER - | | | | | | LABORATORY | | + + + + + + | Hemoglobin | 12.2 | 11.5 - 16.0 | [facility] | | | | | g/dL | [facility] | | | | | | MEDICAL | | | | | | CENTER - | | | | | | LABORATORY | | + + + + + + | Hematocrit | 36.2 | 34.0 - 47.0 % | [facility] | | | | | | [facility] | | | | | | MEDICAL | | | | | | CENTER - | | | | | | LABORATORY | | + + + + + + | MCV | 81.6 (L) | 83.0 - 101.0 fL | [facility] | | | | | | [facility] | | | | | | MEDICAL | | | | | | CENTER - | | | | | | LABORATORY | | + + + + + + | MCH | 27.6 (L) | 28.0 - 35.0 pg | [facility] | | | | | | [facility] | | | | | | MEDICAL | | | | | | CENTER - | | | | | | LABORATORY | | + + + + + + | MCHC | 33.8 | 32.0 - 36.0 | [facility] | | | | | g/dL | [facility] | | | | | | MEDICAL | | | | | | CENTER - | | | | | | LABORATORY | | + + + + + + | RDW-CV | 14.1 | <15.0 % | [facility] | | | | | | [facility] | | | | | | MEDICAL | | | | | | CENTER - | | | | | | LABORATORY | | + + + + + + | Platelet | 303 | 140 - 440 K/uL | [facility] | | | Count | | | [facility] | | | | | | MEDICAL | | | | | | CENTER - | | | | | | LABORATORY | | + + + + + + | MPV | 7.8 | fL | [facility] | | | | | | [facility] | | | | | | MEDICAL | | | | | | CENTER - | | | | | | LABORATORY | | + + + + + + | % | 81.5 | 45.0 - 82.0 % | [facility] | | | Neutrophils | | | [facility] | | | | | | MEDICAL | | | | | | CENTER - | | | | | | LABORATORY | | + + + + + + | % | 11.7 (L) | 20.0 - 45.0 % | [facility] | | | Lymphocytes | | | [facility] | | | | | | MEDICAL | | | | | | CENTER - | | | | | | LABORATORY | | + + + + + + | % Monocytes | 6.0 | 4.0 - 12.0 % | [facility] | | | | | | [facility] | | | | | | MEDICAL | | | | | | CENTER - | | | | | | LABORATORY | | + + + + + + | % | 0.4 | 0.0 - 5.0 % | [facility] | | | Eosinophils | | | [facility] | | | | | | MEDICAL | | | | | | CENTER - | | | | | | LABORATORY | | + + + + + + | % Basophils | 0.4 | 0.0 - 1.0 % | [facility] | | | | | | [facility] | | | | | | MEDICAL | | | | | | CENTER - | | | | | | LABORATORY | | + + + + + + | Absolute | 7.80 | 1.80 - 8.50 | [facility] | | | Neutrophils | | K/uL | [facility] | | | | | | MEDICAL | | | | | | CENTER - | | | | | | LABORATORY | | + + + + + + | Absolute | 1.10 | 0.60 - 3.20 | [facility] | | | Lymphocytes | | K/uL | [facility] | | | | | | MEDICAL | | | | | | CENTER - | | | | | | LABORATORY | | + + + + + + | Absolute | 0.60 | 0.00 - 1.00 | [facility] | | | Monocytes | | K/uL | [facility] | | | | | | MEDICAL | | | | | | CENTER - | | | | | | LABORATORY | | + + + + + + | Absolute | 0.00 | 0.00 - 0.40 | [facility] | | | Eosinophils | | K/uL | [facility] | | | | | | MEDICAL | | | | | | CENTER - | | | | | | LABORATORY | | + + + + + + | Absolute | 0.00 | 0.00 - 0.10 | [facility] | | | Basophils | | K/Roger | [facility] | | | | | | MEDICAL | | | | | | CENTER - | | | | | | LABORATORY | | + + + + + + + + | Specimen | + + | Blood | + + + + + + + | Performing | Address | City/State/Zipcode | Phone Number | | Organization | | | | + + + + + | [facility] | [address] | [place] | [phone] | | [facility] | | [address] | | | - LABORATORY | | | | + + + + + documented in this encounter Visit Diagnoses + + | Diagnosis | + + | Headache, unspecified headache type - Primary | + + | Acute pain Other acute pain | + + | Nausea Nausea alone | + + documented in this encounter Administered Medications + +--------+ +-------+------+------+ | Medication Order | MAR | Action | Dose | Rate | Site | | | Action | Date | | | | + +--------+ +-------+------+------+ | diphenhydrAMINE (BENADRYL) | Given | 03/22/ | 50 mg | | | | injection 50 mg 50 mg, | | 17 7:04 | | | | | Intravenous, ONCE, [place] 03/22/17 at | | PM PDT | | | | | 1900, For 1 dose | | | | | | + +--------+ +-------+------+------+ +---+---+ | | | +---+---+ + +-------+ +------+---+---+ | HYDROmorphone (DILAUDID) | Given | 03/22/20 | 1 mg | | | | injection 1 mg 1 mg, | | 17 6:38 | | | | | Intravenous, ONCE, [place] 03/22/17 at | | PM PDT | | | | | 1820, For 1 dose | | | | | | + +-------+ +------+---+---+ +---+---+ | | | +---+---+ + +-------+ +--------+---+---+ | iohexol (OMNIPAQUE 350) 350 | Given | 03/22/20 | 95 mLs | | | | mg/mL injection 95 mL 95 mL, | | 17 6:59 | | | | | Intravenous, ONCE PRN, Other, for | | PM PDT | | | | | CT Contrast Study, Starting [place] | | | | | | | 03/22/17 at 1859, For 1 dose, | | | | | | | Radiology | | | | | | + +-------+ +--------+---+---+ + +---+ | | | + +---+ | iohexol (OMNIPAQUE 350) 350 | | | mg/mL injection 95 mL 95 mL, | | | Intravenous, ONCE PRN, Other, for | | | CT Contrast Study, Starting [place] | | | 03/22/17 at 1900, For 1 dose, | | | Radiology | | + +---+ | | | + +---+ + +-------+ +-------+---+---+ | ketorolac (TORADOL) injection | Given | 03/22/20 | 15 mg | | | | 15 mg 15 mg, Intravenous, ONCE, | | 17 7:08 | | | | | [place] 03/22/17 at 1900, For 1 dose | | PM PDT | | | | + +-------+ +-------+---+---+ +---+---+ | | | +---+---+ + +-------+ +--------+---+---+ | magnesium oxide (MAG-OX) tablet | Given | 03/22/20 | 800 mg | | | | 800 mg 800 mg, Oral, ONCE, Sun | | 17 7:12 | | | | | 03/22/17 at 1900, For 1 dose | | PM PDT | | | | + +-------+ +--------+---+---+ +---+---+ | | | +---+---+ + +-------+ +--------+---+---+ | methylPREDNISolone sodium | Given | 03/22/20 | 125 mg | | | | succinate (solu-MEDROL) 62.5 | | 17 7:07 | | | | | mg/mL injection 125 mg 125 mg, | | PM PDT | | | | | Intravenous, ONCE, [place] 03/22/17 at | | | | | | | 1905, For 1 dose, Mix with 2 mL | | | | | | | provided diluent to make 62.5 | | | | | | | mg/mL., | | | | | | + +-------+ +--------+---+---+ +---+---+ | | | +---+---+ + +-------+ +-------+---+---+ | metoclopramide (REGLAN) 5 mg/mL | Given | 03/22/20 | 10 mg | | | | injection 10 mg 10 mg, | | 17 7:10 | | | | | Intravenous, ONCE, 03/22/17 at | | PM PDT | | | | | 1900, For 1 dose, Protect from | | | | | | | light., | | | | | | + +-------+ +-------+---+---+ +---+---+ | | | +---+---+ + +-------+ +------+---+---+ | ondansetron (ZOFRAN) injection | Given | 03/22/20 | 4 mg | | | | 4 mg 4 mg, Intravenous, ONCE, | | 17 6:36 | | | | | 03/22/17 at 1820, For 1 dose | | PM PDT | | | | + +-------+ +------+---+---+ +---+---+ | | | +---+---+ + +------+ +--------+-------+---+ | sodium chloride 0.9% (NS) bolus | Push | 03/22/20 | 55 mLs | 3300 | | | 55 mL 55 mL, Intravenous, | | 17 6:59 | | mL/hr | | | Administer over 1 Minutes, ONCE | | PM PDT | | | | | PRN, for CT Contrast Study, | | | | | | | Starting 03/22/17 at 1859, For | | | | | | | 1 dose, Radiology | | | | | | + +------+ +--------+-------+---+ +---+---+ | | | +---+---+ documented in this encounter
--- OUTSIDE RECORDS SUMMARY | ~2019-07-09 | XMS | Encounter Summary ---
Demographics + + + | Address | [address] | | | [place] [address] | + + + | Home Phone | | + + + | Preferred Language | Unknown | + + + | Marital Status | | + + + | Yarsanism Affiliation | Unknown | + + + | Race | Unknown | + + + | Ethnic Group | Unknown | + + + Author + + + | Author | [facility] | | | and [place] | + + + | Organization | [facility] | | | and [place] [...] | | Kim | | [place] [address] | | + + + + + | Gita Merino | ECON | [address] | | | | | [place], | | | | | [place] [address] | | + + + + + Care Team Providers + +------+ + | Care Air Gun Operator Name | Role | Phone | + +------+ + PCP | Unavailable | + +------+ + Encounter Details +--------+ + + + + | Date | Type | Department | Care Team | Description | +--------+ + + + + | 10/08/ | Hospital | [facility] | Wagner Pollock, | | | 2012 - | Encounter | [facility] | [place] [address] | | | | | [place] [address] | [place] | | | 10/21/ | | [place] | [address] | | | 2012 | | [address] | [phone] | | | | | [phone] | | | +--------+ + + + [...] | + +--------+ + + + | THYROGLOBULIN / | Routin | 10/08/2012 | | Results for this | | THYROGLOBULIN | e | 8:48 AM | | procedure are in the | | ANTIBODY | | PST | | results section. | + +--------+ + + + | TSH | Routin | 10/06/2012 | | Results for this | | | e | 1:58 PM | | procedure are in the | | | | PST | | results section. | + +--------+ + + + documented in this encounter Results Thyroglobulin / Thyroglobulin Antibody (10/08/2012 8:48 AM PST) + + + + + + | Component | Value | Ref Range | Performed | Pathologist | | | | | At | Signature | + + + + + + | Thyroglobul | <0.9Comment: NOTE NEW | 0.0 - 4.0 IU/mL | [facility] | | | in Ab | REFERENCE RANGE | | [facility] | | | | | | MEDICAL | | | | | | CENTER - | | | | | | LABORATORY | | + + + + + + | Thyroglobul | <0.1 (L)Comment: Testing | 1.2 - 35.0 | [facility] | | | in | Performed: [place] | ng/mL | [facility] | | | | [facility] | | MEDICAL | | | | [place], [address], | | CENTER - | | | | [place] [address] | | LABORATORY | | | | CLIA: [id number] | | | | + + + + + + + + | Specimen | + + | | + + + + + + + | Performing | Address | City/State/Zipcode | Phone Number | | Organization | | | | + + + + + | [facility] | [address] | [place] | [phone] | | [facility] | | [address] | | | - LABORATORY | | | | + + + + + | [facility] | [address] | [place] | | | [facility] | | [address] | | | - LABORATORY | | | | + + + + + TSH (10/06/2012 1:58 PM PST) + + + + + + | Component | Value | Ref Range | Performed | Pathologist | | | | | At | Signature | + + + + + + | TSH | 134.16 (H)Comment: | 0.34 - 5.60 | [facility] | | | | @VERIFIED BY DILUTION | uIU/mL | . [facility] | | | | [facility] | | MEDICAL | | | | performed on the [facility] | | CENTER - | | | | [facility] | | LABORATORY | | | | Analyzer. | | | | + + + + + + + + | Specimen | + + | | + + + + + + + | Performing | Address | City/State/Zipcode | Phone Number | | Organization | | | | + + + + + | [facility] | [address] | [place] | [phone] | | [facility] | | [address] | | | - LABORATORY | | | | + + + + + | [facility] | [address] | [place] | | | [facility] | | [address] | | | - LABORATORY | | | | + + + + + documented in this encounter Visit Diagnoses Not on filedocumented in this encounter"
--- OUTSIDE RECORDS SUMMARY | ~2019-07-09 | XMS | Encounter Summary ---
Demographics + + + | Address | [address] | | | [place] [address] | + + + | Home Phone | | + + + | Preferred Language | Unknown | + + + | Marital Status | | + + + | Yarsanism Affiliation | Unknown | + + + | Race | Unknown | + + + | Ethnic Group | Unknown | + + + Author + + + | Author | [facility] | | | and [place] | + + + | Organization | [facility] | | | and [place] [...] | | Kim | | [place] [address] | | + + + + + | Gita Merino | ECON | [address] | | | | | [place], | | | | | [place] [address] | | + + + + + Care Team Providers + +------+ + | Care Hospitality Aide Name | Role | Phone | + +------+ + | Emmanuelle Uribe PA-C | PCP | | + +------+ + Reason for Visit + + + | Reason | Comments | + + + | Back Pain | Low back pain that radiates down the left leg | + + + Evaluate & Treat (Routine) +--------+--------+ + + + + | Status | Reason | Specialty | Diagnoses / | Referred By | Referred To | | | | | Procedures | Contact | Contact | +--------+--------+ + + + + | Closed | | Physical | Diagnoses | | [place], | | | | Medicine and | Bulging | Jojo, | Benjamin Santizo MD | | | | Rehabilitatio | disc | Emmanuelle Staton, | [address] | | | | n | | [address] | [address] | | | | | | [place] | [place] | | | | | | [address] | [address] Phone: | | | | | | [place], | [phone] | | | | | | [place] | Fax: | | | | | | [address] | [phone] | | | | | | Phone: | | | | | | | [phone] | | | | | | | Fax: | | | | | | | [phone] | | +--------+--------+ + + + + Encounter Details +--------+---------+ + + + | Date | Type | Department | Care Team | Description | +--------+---------+ + + + | 09/14/ | Office | [facility] | Benjamin Pendleton | Left lumbar | | 2013 | Visit | PHYSIATRY [address] | [facility] [address] | radiculitis (Primary | | | | [place], | [place] | Dx); DDD | | | | [place] [address] | [address] | (degenerative disc | | | | [phone] | | disease), lumbar | +--------+---------+ + + + Social History + +-------+ +--------+------+ | Tobacco Use | Types | Packs/Day | Years | Date | | | | | Used | | + +-------+ +--------+------+ | Never Smoker | | | | | + +-------+ +--------+------+ + + +---------+ + | Alcohol Use | Drinks/Week | oz/Week | Comments | + + +---------+ + | Not Asked | | | | + + +---------+ [...] + + + | Blood Pressure | 128/79 | 09/14/2013 9:11 AM | | | | | PST | | + + + + + | Pulse | 65 | 09/14/2013 9:11 AM | | | | | PST | | + + + + + | Temperature | - | - | | + + + + + | Respiratory Rate | - | - | | + + + + + | Oxygen Saturation | - | - | | + + + + + | Inhaled Oxygen | - | - | | | Concentration | | | | + + + + + | Weight | 123.8 kg (273 lb) | 09/14/2013 9:11 AM | | | | | PST | | + + + + + | Height | 170.2 cm (5' 7") | 09/14/2013 9:11 AM | | | | | PST | | + + + + + | Body Mass Index | 42.76 | 09/14/2013 9:11 AM | | | | | PST | | + + + + + documented in this encounter Patient Instructions Patient Instructions Nieves Padilla, Master of Arts - 09/14/2013 9:45 AM PST Follow-up at the hospital thirty minutes before your scheduled procedure to allow for time to check in. You may eat and drink as usual on the day of the procedure. If you are scheduled for an epidural injection do not take any blood thinning medications f or at least 5-7 days prior to your procedure unless you have been instructed by another phys ician not to discontinue blood thinning medications. If you are having a procedure other than an epidural injection (i.e. facet injection, media l branch block, SI joint injection or other joint injection) it is not absolutely necessary to discontinue blood thinning medications but doing so will decrease the risk of bruising or bleeding. If you have had a prior stroke, DVT or PE or if you are taking blood thinning medication be cause you have atrial fibrillation, a prosthetic cardiac valve replacement or heart stenting do not stop taking your blood thinning medications unless you have permission from your car diologist or primary care provider. All other medications should be taken as usual on the day of the procedure. Common blood thinning medications include: Aspirin (a baby aspirin is o.k.) Ibuprofen (Advil or Motrin) Naproxen (Aleve) Nabumetone (Relafen) Clopidogrel (Plavix) Dipyridamole/ASA (Aggrenox) Warfarin (Coumadin) Dabigatran (Pradaxa) Rivaroxaban (Xarelto) There are many others. If you have questions about your medications and whether or not you should stop any medications please contact our office. If you are having an epidural injection or if you take any medication for relaxation/sedati on on the day of the procedure you must provide a chain saw driver to take you home. For all procedur es it is recommended that someone else drive you home. documented in this encounter Progress Notes Benjamin Pendleton MD - 09/14/2013 9:17 AM PST CHIEF COMPLAINT: Chief Complaint Patient presents with Back Pain Low back pain that radiates down the left leg HISTORY OF PRESENT ILLNESS: The patient is a 33 y.o. female being seen today at the request of Rosangela Donahue for compl aints of low back pain that radiates down through the buttock and into the left leg to about the knee. The patient's symptoms originally began in March 2013 when she lifted her 9 yea r old child and felt a sudden pain that radiated down the leg. Overall the patient reports that the symptoms are worsening over the last 4 months. She rates the pain as moderate. S he describes the pain as aching or sharp. Her symptoms worsen with walking, lifting and wit h standing. Her symptoms improve with any lifting or bending. The patient does also descr fidel some numbness in the arms and hands as well as down the left leg. She does report weak ness of the left leg. She does not have bowel and bladder dysfunction. She does not have saddle anesthesia. Treatments for these complaints have included chiropractics which didn't help the symptoms. She is currently taking Ibuprofen for pain relief. MRI of the lumbar spine was reviewed in detail with the patient. PAST MEDICAL HISTORY Past Medical History Diagnosis Date Thyroid disease Cancer PAST SURGICAL HISTORY Past Surgical History Procedure Date Thyroidectomy 2011 Dr. Florinda White Tonsillectomy Cholecystectomy section Tubal ligation Kidney stent 2005,2007,2009 3 kidney stents placed CURRENT MEDICATIONS: Current Outpatient Prescriptions Medication Sig Dispense Refill levothyroxine (SYNTHROID) 200 mcg tablet Take 200 mcg by mouth every morning (before br eakfast). liothyronine (CYTOMEL) 5 mcg tablet Take 5 mcg by mouth Daily. ALLERGIES: Allergies Allergen Reactions Gabapentin Swelling Metronidazole Rash SOCIAL HISTORY History Substance Use Topics Smoking status: Never Smoker Smokeless tobacco: Not on file Alcohol Use: Not on file FAMILY HISTORY Family History Problem Relation Age of Onset Stroke Paternal Aunt Stroke Paternal Uncle Heart disease Maternal Grandmother Heart disease Maternal Grandfather Cancer Paternal Grandmother REVIEW OF SYSTEMS: GENERALLY: No fever, + chills, no night sweats, + fatigue, no weight loss, no weight gain . EYES: No vision changes. EARS, NOSE, AND THROAT: No hearing loss, no ear pain, no nosebleeds, no toothache, no gum p roblems, no significant snoring or sleep apnea, no seasonal allergies, no difficulty swallow ing, no hoarseness. NEUROMUSCULAR: Please see the review of systems discussed above in the history of present illness. In addition, the patient has no dizziness, no blackouts, no headaches. PSYCHIATRIC: No depression, no difficulty sleeping, no anxiety, no memory loss. CARDIOVASCULAR: No chest pain, no palpitations, no swollen ankles. PULMONARY: No shortness of breath, no cough. GASTROINTESTINAL: No poor appetite, no diarrhea, no nausea or vomiting, no bowel incontine nce, no hemorrhoids, no constipation, no abdominal pain. GENITOURINARY: No urinary difficulty and no incontinence. SKIN: No rashes. HEMATOLOGIC/LYMPHATIC: No enlarged lymph nodes or swollen glands. ENDOCRINE: No diabetes, + thyroid disease, no osteopenia or osteoporosis. RHEUMATOLOGIC: No osteoarthritis, no rheumatoid arthritis. PHYSICAL EXAMINATION: Blood pressure 128/79, pulse 65, height 1.702 m (5' 7"), weight 123.832 kg (273 lb). Body m ass index is 42.76 kg/(m^2). GENERAL: The patient is well developed and well nourished. She does not appear uncomfortab le when seated. HEENT: Normocephalic and atraumatic. Normal sclerae without icterus. NECK (ANTERIOR): There is no apparent cervical lymphadenopathy or thyromegaly. PULMONARY: The patient is in no acute respiratory distress with unlabored respirations. CARDIOVASCULAR: Regular rate and rhythm. There is not lower extremity edema. ABDOMEN: Non-distended. SKIN: Limited skin exam shows no significant rashes or lesions. There are not scars in the lumbar region. NEUROLOGIC: The patient is awake, alert, and oriented. She follows simple and complex commands. Her speech is fluent. She comprehends speech well. She has no apparent deficits with short or vermin exterminator memory. The cranial nerves appear grossly intact. Sensory exam does not show diminished sensation to light touch in the upper and lower extr emities. REFLEX: RIGHT LEFT PATELLAR 2+ 2+ ACHILLES 2+ 2+ PLANTAR Downgoing Downgoing MUSCULOSKELETAL : Straight leg raise and slump-sit are negative. Joey's maneuver and im pingement testing were negative for any groin pain. There was no tenderness to palpation o damaris the greater trochanters or sacral sulci. The patient localized the majority of the pain to the lower lumbar region and radiating into the left leg. Lumbar facet loading was negat preston. Strength testing showed 5/5 strength throughout the lower extremities. The patient wa s able to heel and toe walk without difficulty. There was no redness, effusion, warmth or j oint line tenderness in the knees or ankles. ASSESSMENT: 1. Lumbar radiculitis - left lower extremity 2. DDD lumbar, fairly mild but with a potential for nerve root impingement on the L5 nerve root in the subarticular recess on the left at L4-L5. PLAN: 1. The patient is very interested in interventional procedures. She does not feel that sh e could tolerate much therapy at the current time at this pain level. I did feel it would b e appropriate to offer her an epidural injection on the left at L5-S1 which will put the med icine as close to the L5 nerve root as possible. 2. I did also give the patient a prescription for PT. Hopefully she will get some benefit from the injection and be able to tolerate therapy better. 3. I did not make any changes in her medications today. ELECTRONICALLY SIGNED BY: Benjamin Pendleton MD, 09/14/2013 documented in this encounter Plan of Treatment Not on filedocumented as of this encounter Visit Diagnoses + + | Diagnosis | + + | Left lumbar radiculitis - Primary Thoracic or lumbosacral neuritis or radiculitis, | | unspecified | + + | DDD (degenerative disc disease), lumbar Degeneration of lumbar or lumbosacral | | intervertebral disc | + + documented in this encounter
--- OUTSIDE RECORDS SUMMARY | ~2019-07-09 | XMS | Encounter Summary ---
Demographics + + + | Address | [address] | | | [place] [address] | + + + | Home Phone | | + + + | Preferred Language | Unknown | + + + | Marital Status | | + + + | Congregational Affiliation | Unknown | + + + | Race | Unknown | + + + | Ethnic Group | Unknown | + + + Author + + + | Author | [facility] | | | and [place] | + + + | Organization | [facility] | | | and [place] [...] | | Kim | | [place] [address] | | + + + + + | Gita Merino | ECON | [address] | | | | | [place], | | | | | [place] [address] | | + + + + + Care Team Providers + +------+ + | Care Benzene Operator Name | Role | Phone | + +------+ + | Kajal Hernandez | PCP | | | MD | | | + +------+ + Encounter Details +--------+ + + + + | Date | Type | Department | Care Team | Description | +--------+ + + + + | 08/25/ | Orders Only | [facility] | Silvia Dawson, | | | 2018 | | CONVERSION 888 | MD [address] | | | | | [address] | [facility], [place] | | | | | [place], [place] | [address] | | | | | [address] | | | | | | [phone] | | | +--------+ + + + [...] | + +--------+ + + + | ECHO INTERPRETATION | Routin | 08/25/2017 | | Results for this | | OF OUTSIDE FILMS | e | 9:26 AM | | procedure are in the | | | | PST | | results section. | + +--------+ + + + documented in this encounter Results ECHO Interpretation of Outside Films (08/25/2017 9:26 AM PST) + + | Specimen | + + | | + + + + + | Impressions | Performed At | + + + | 1. Overall left ventricular systolic function is normal with, an EF | | | between 60 - 65 %. 2. The right ventricle is normal in size and | | | function. 3. There is no pericardial effusion, calciification or | | | pericardial thickening. However, this does not exclude the | | | possibility of pericarditis. 4. No significant valvular abnormality. | | + + + + + + | Narrative | Performed At | + + + | Patient Name: Supriya Alvarez Date of : 1980 | | | Performing Physician: RAMIREZ OCAMPO MD | | | | | | INDICATIONS CONCLUSIONS 1. Overall | | | left ventricular systolic function is normal with, an EF between 60 - | | | 65 %. 2. The right ventricle is normal in size and function. 3. | | | There is no pericardial effusion, calciification or pericardial | | | thickening. However, this does not exclude the possibility of | | | pericarditis. 4. No significant valvular abnormality. FINDINGS | | | -------- ECG rhythm: Sinus rhythm. Study: A 2-dimensional | | | transthoracic echocardiogram with m-mode, spectral and color flow | | | Doppler was perfomed. Study: This was a technically adequate study. | | | Study: Suboptimal image quality - poor subcostal views. Left | | | Ventricle: Overall left ventricular systolic function is normal with, | | | an EF between 60 - 65 %. Left Ventricle: The left ventricle cavity | | | size is normal. Left Ventricle: Left ventricular wall thickness is | | | normal. Left Ventricle: No regional wall motion abnormalities. Left | | | Ventricle: The diastolic filling pattern is normal for the age of the | | | patient. Right Ventricle: The right ventricle is normal in size and | | | function. Left Atrium: The left atrium is normal in size. Right | | | Atrium: The right atrium is normal in size. Aortic Valve: The aortic | | | valve is trileaflet, and appears anatomically normal. No aortic | | | stenosis or regurgitation. Mitral Valve: The mitral valve is normal. | | | Mitral Valve: There is trace mitral regurgitation. Mitral Valve: No | | | evidence of MVP or mitral stenosis. Tricuspid Valve: The tricuspid | | | valve appears structurally normal. Tricuspid Valve: Trace tricuspid | | | regurgitation present. Tricuspid Valve: There is no evidence of | | | pulmonary hypertension. Tricuspid Valve: The right ventricular | | | systolic pressure (pulmonary artery systolic pressure), as measured by | | | Doppler, is 31.30mmHg. Pulmonic Valve: The pulmonic valve is normal. | | | Pulmonic Valve: Trace pulmonic regurgitation. Pericardium: There | | | is no pericardial effusion, calciification or Pericardium: | | | pericardial thickening. IVC/Hepatic Veins: The IVC was not well | | | visualized. Aorta: The aortic root, ascending aorta and aortic arch | | | are normal. Mass: No mass visualized Thrombus: No clot visualized | | | Thrombus: No vegetation visualized. Septum: No ASD observed. Septum: | | | No VSD observed. MEASUREMENTS Ao asc: 3.17 cm | | | Ao Diam: 2.55 cm Ao sinus: 2.[address] junct: 2.65 cm | | | LA Diam: 3.60 cm EDV(Teich): 120.94 ml IVSd: 1.00 cm | | | LVIDd: 5.04 cm LVPWd: 0.93 cm LVOT Area: 2.74 cm2 LVOT | | | Diam: 1.86 cm %FS: 36.41 % EF(Teich): 65.86 % ESV(Teich): | | | 41.27 ml LVIDs: 3.21 cm SV(Teich): 79.66 ml RV Major: | | | 7.72 cm RVIDd: 3.02 cm LVEF MOD A2C: 67.94 % SV MOD A2C: | | | 68.19 ml LVEF MOD A4C: 61.90 % SV MOD A4C: 62.74 ml EF | | | Biplane: 63.75 % LVEDV MOD BP: 101.61 ml LVESV MOD BP: | | | 36.82 ml LVEDV MOD A2C: 100.36 ml LVLd A2C: 8.44 cm LVEDV MOD | | | A4C: 101.36 ml LVLd A4C: 8.58 cm LVESV MOD A2C: 32.17 ml | | | LVLs A2C: 6.83 cm LVESV MOD A4C: 38.61 ml LVLs A4C: 7.50 cm | | | LAESV(A-L): 49.16 ml LAESV Index (A-L): 19.90 ml/m2 LAAs | | | A2C: 15.84 cm2 LAESV A-L A2C: 43.16 ml LALs A2C: 4.93 cm | | | LAAs A4C: 17.29 cm2 LAESV A-L A4C: 53.65 ml LALs A4C: 4.73 | | | cm RAAs: 15.13 cm2 RAESV A-L: 41.81 ml RAESV MOD: 40.65 ml | | | RALs: 4.64 cm TAPSE: 2.69 cm AV maxP.07 mmHg AV | | | meanP.94 mmHg AV Vmax: 1.58 m/s AV Vmean: 1.17 m/s AV | | | VTI: 32.43 cm GALINA Vmax: 1.95 cm2 GALINA (VTI): 2.29 cm2 AVAI | | | Vmax: 0.00 cm2/m2 AVAI (VTI): 0.00 cm2/m2 LVOT maxP.12 | | | mmHg LVOT meanP.71 mmHg LVSI Dopp: 30.11 ml/m2 LVSV Dopp: | | | 74.37 ml LVOT Vmax: 1.13 m/s LVOT Vmean: 0.77 m/s LVOT | | | VTI: 27.10 cm MV A Blair: 0.63 m/s MV DecT: 237.08 ms MV E | | | Blair: 0.66 m/s MV E/A Ratio: 1.04 MV PHT: 68.75 ms MVA By | | | PHT: 3.19 cm2 Septal e': 0.09 m/s Septal E/e': 6.78 | | | Lateral e': 0.13 m/s Lateral E/e': 4.83 RAP: 5 mmHg RVSP: | | | 31.29 mmHg TR maxP.29 mmHg TR Vmax: 2.56 m/s | | | Jammer Operator: Authenticated by: RAMIREZ OCAMPO MD Report Date/Time: | | | 08-25-2017 16:42:55 | | + + + + -+ | Procedure Note | + -+ | Leoncio Miner Conversion - 04/14/2019 4:45 PM PDT Patient Name: Charlotte Alvarez of | | : 1980 Performing Physician: RAMIREZ OCAMPO, | | INDICATIONS | | CONCLUSIONS 1. Overall left ventricular systolic function is normal with, an | | EF between 60 - 65 %.2. The right ventricle is normal in size and function.3. There is | | no pericardial effusion, calciification or pericardial thickening. However, this does | | not exclude the possibility of pericarditis. 4. No significant valvular abnormality. | | FINDINGS--------ECG rhythm: Sinus rhythm.Study: A 2-dimensional transthoracic | | echocardiogram with m-mode, spectral and color flow Doppler was perfomed.Study: This was | | a technically adequate study.Study: Suboptimal image quality - poor subcostal | | views.Left Ventricle: Overall left ventricular systolic function is normal with, an EF | | between 60 - 65 %.Left Ventricle: The left ventricle cavity size is normal.Left | | Ventricle: Left ventricular wall thickness is normal.Left Ventricle: No regional wall | | motion abnormalities.Left Ventricle: The diastolic filling pattern is normal for the age | | of the patient.Right Ventricle: The right ventricle is normal in size and function.Left | | Atrium: The left atrium is normal in size.Right Atrium: The right atrium is normal in | | size.Aortic Valve: The aortic valve is trileaflet, and appears anatomically normal. No | | aortic stenosis or regurgitation.Mitral Valve: The mitral valve is normal.Mitral Valve: | | There is trace mitral regurgitation.Mitral Valve: No evidence of MVP or mitral | | stenosis.Tricuspid Valve: The tricuspid valve appears structurally normal.Tricuspid | | Valve: Trace tricuspid regurgitation present.Tricuspid Valve: There is no evidence of | | pulmonary hypertension.Tricuspid Valve: The right ventricular systolic pressure | | (pulmonary artery systolic pressure), as measured by Doppler, is 31.30mmHg.Pulmonic | | Valve: The pulmonic valve is normal.Pulmonic Valve: Trace pulmonic | | regurgitation.Pericardium: There is no pericardial effusion, calciification | | orPericardium: pericardial thickening.IVC/Hepatic Veins: The IVC was not well | | visualized.Aorta: The aortic root, ascending aorta and aortic arch are normal.Mass: No | | mass visualizedThrombus: No clot visualizedThrombus: No vegetation visualized.Septum: No | | ASD observed.Septum: No VSD observed. MEASUREMENTS Ao asc: 3.17 cmAo | | Diam: 2.55 cmAo sinus: 2.[address] junct: 2.65 cmLA Diam: 3.60 cmEDV(Teich): | | 120.94 mlIVSd: 1.00 cmLVIDd: 5.04 cmLVPWd: 0.93 cmLVOT Area: 2.74 [id number] Diam: | | 1.86 cm%FS: 36.41 %EF(Teich): 65.86 %ESV(Teich): 41.27 mlLVIDs: 3.21 | | cmSV(Teich): 79.66 mlRV Major: 7.72 cmRVIDd: 3.02 cmLVEF MOD A2C: 67.94 %SV MOD | | A2C: 68.19 mlLVEF MOD A4C: 61.90 %SV MOD A4C: 62.74 mlEF Biplane: 63.75 %LVEDV | | MOD BP: 101.61 mlLVESV MOD BP: 36.82 mlLVEDV MOD A2C: 100.36 mlLVLd A2C: 8.44 | | cmLVEDV MOD A4C: 101.36 mlLVLd A4C: 8.58 cmLVESV MOD A2C: 32.17 mlLVLs A2C: 6.83 | | cmLVESV MOD A4C: 38.61 mlLVLs A4C: 7.50 cmLAESV(A-L): 49.16 mlLAESV Index (A-L): | | 19.90 ml/m2LAAs A2C: 15.84 [id number] A-L A2C: 43.16 mlLALs A2C: 4.93 cmLAAs A4C: | | 17.29 [id number] A-L A4C: 53.65 mlLALs A4C: 4.73 cmRAAs: 15.13 [id number] A-L: | | 41.81 mlRAESV MOD: 40.65 mlRALs: 4.64 cmTAPSE: 2.69 cmAV maxP.07 mmHgAV | | meanP.94 mmHgAV Vmax: 1.58 m/Layla Vmean: 1.17 m/Layla VTI: 32.43 cmAVA Vmax: | | 1.95 cm2AVA (VTI): 2.29 [id number] Vmax: 0.00 cm2/m2AVAI (VTI): 0.00 cm2/m2LVOT | | maxP.12 mmHgLVOT meanP.71 mmHgLVSI Dopp: 30.11 ml/m2LVSV Dopp: 74.37 | | mlLVOT Vmax: 1.13 m/sLVOT Vmean: 0.77 m/sLVOT VTI: 27.10 cmMV A Blair: 0.63 m/sMV | | DecT: 237.08 msMV E Blair: 0.66 m/sMV E/A Ratio: 1.04MV PHT: 68.75 msMVA By PHT: | | 3.19 [id number] e': 0.09 m/sSeptal E/e': 6.78Lateral e': 0.13 m/sLateral E/e': | | 4.83RAP: 5 mmHgRVSP: 31.29 mmHgTR maxP.29 mmHgTR Vmax: 2.56 m/s | | Jammer Operator:Authenticated by: CESAROI CASTELLANOSy[facility] Date/Time: 08-25-2017 16:42:55 | | IMPRESSION: 1. Overall left ventricular systolic function is normal with, an EF between | | 60 - 65 %.2. The right ventricle is normal in size and function.3. There is no | | pericardial effusion, calciification or pericardial thickening. However, this does not | | exclude the possibility of pericarditis. 4. No significant valvular abnormality. | |MEASUREMENTS | | | |Ao asc: 3.17 cm | |Ao Diam: 2.55 cm | |Ao sinus: 2.83 cm | |Ao st junct: 2.65 cm | |LA Diam: 3.60 cm | |EDV(Teich): 120.94 ml | |IVSd: 1.00 cm | |LVIDd: 5.04 cm | |LVPWd: 0.93 cm | |LVOT Area: 2.74 cm2 | |LVOT Diam: 1.86 cm | |%FS: 36.41 % | |EF(Teich): 65.86 % | |ESV(Teich): 41.27 ml | |LVIDs: 3.21 cm | |SV(Teich): 79.66 ml | |RV Major: 7.72 cm | |RVIDd: 3.02 cm | |LVEF MOD A2C: 67.94 % | |SV MOD A2C: 68.19 ml | |LVEF MOD A4C: 61.90 % | |SV MOD A4C: 62.74 ml | |EF Biplane: 63.75 % | |LVEDV MOD BP: 101.61 ml | |LVESV MOD BP: 36.82 ml | |LVEDV MOD A2C: 100.36 ml | |LVLd A2C: 8.44 cm | |LVEDV MOD A4C: 101.36 ml | |LVLd A4C: 8.58 cm | |LVESV MOD A2C: 32.17 ml | |LVLs A2C: 6.83 cm | |LVESV MOD A4C: 38.61 ml | |LVLs A4C: 7.50 cm | |LAESV(A-L): 49.16 ml | |LAESV Index (A-L): 19.90 ml/m2 | |LAAs A2C: 15.84 cm2 | |LAESV A-L A2C: 43.16 ml | |LALs A2C: 4.93 cm | |LAAs A4C: 17.29 cm2 | |LAESV A-L A4C: 53.65 ml | |LALs A4C: 4.73 cm | |RAAs: 15.13 cm2 | |RAESV A-L: 41.81 ml | |RAESV MOD: 40.65 ml | |RALs: 4.64 cm | |TAPSE: 2.69 cm | |AV maxP.07 mmHg | |AV meanP.94 mmHg | |AV Vmax: 1.58 m/s | |AV Vmean: 1.17 m/s | |AV VTI: 32.43 cm | |GALINA Vmax: 1.95 cm2 | |GALINA (VTI): 2.29 cm2 | |AVAI Vmax: 0.00 cm2/m2 | |AVAI (VTI): 0.00 cm2/m2 | |LVOT maxP.12 mmHg | |LVOT meanP.71 mmHg | |LVSI Dopp: 30.11 ml/m2 | |LVSV Dopp: 74.37 ml | |LVOT Vmax: 1.13 m/s | |LVOT Vmean: 0.77 m/s | |LVOT VTI: 27.10 cm | |MV A Blair: 0.63 m/s | |MV DecT: 237.08 ms | |MV E Blair: 0.66 m/s | |MV E/A Ratio: 1.04 | |MV PHT: 68.75 ms | |MVA By PHT: 3.19 cm2 | |Septal e': 0.09 m/s | |Septal E/e': 6.78 | |Lateral e': 0.13 m/s | |Lateral E/e': 4.83 | |RAP: 5 mmHg | |RVSP: 31.29 mmHg | |TR maxP.29 mmHg | |TR Vmax: 2.56 m/s | | | |Jammer Operator: | |Authenticated by: RAMIREZ OCAMPO MD | |Report Date/Time: 08-25-2017 16:42:55 | | | |IMPRESSION: | |1. Overall left ventricular systolic function is normal with, an EF between 60 - 65 %. | |2. The right ventricle is normal in size and function. | |3. There is no pericardial effusion, calciification or pericardial thickening. However, th is does not exclude the possibility of pericarditis. 4. No significant valvular abnormality. | + -+ documented in this encounter Visit Diagnoses Not on filedocumented in this encounter"
--- OUTSIDE RECORDS SUMMARY | ~2019-07-09 | XMS | Encounter Summary ---
Demographics + + + | Address | [address] | | | [place] [address] | + + + | Home Phone | | + + + | Preferred Language | Unknown | + + + | Marital Status | | + + + | Judaism Affiliation | Unknown | + + + | Race | Unknown | + + + | Ethnic Group | Unknown | + + + Author + + + | Author | [facility] | | | and [place] | + + + | Organization | [facility] | | | and [...] | | Kim | | [place] [address] | | + + + + + | Gita Merino | ECON | [address] | | | | | [place], | | | | | [place] [address] | | + + + + + Care Team Providers + +------+ + | Care [employer] Art Teacher Name | Role | Phone | + +------+ + PCP | Unavailable | + +------+ + Encounter Details +--------+ + + + + | Date | Type | Department | Care Team | Description | +--------+ + + + + | 06/29/ | Hospital | [facility] | Wagner Pollock, | | | 2011 - | Encounter | [facility] | [place] [address] | | | | | [place] [address] | [place] | | | 07/[birth year]/ | | [place] | [address] | | | 2011 | | [address] | [phone] | | | | | [phone] | | | +--------+ + + + [...] + | THYROGLOBULIN / | Routin | 06/29/2012 | | Results for this | | THYROGLOBULIN | e | 4:49 PM | | procedure are in the | | ANTIBODY | | PST | | results section. | + +--------+ + + + | THYROPEROXIDASE | Routin | 06/29/2012 | | Results for this | | ANTIBODIES | e | 4:49 PM | | procedure are in the | | | | PST | | results section. | + +--------+ + + + | TSH | Routin | 06/29/2012 | | Results for this | | | e | 4:49 PM | | procedure are in the | | | | PST | | results section. | + +--------+ + + + documented in this encounter Results Thyroid peroxidase antibody (06/29/2012 4:49 PM PST) + + + + + + | Component | Value | Ref Range | Performed | Pathologist | | | | | At | Signature | + + + + + + | Thyroid | 45.5 (H)Comment: Testing | 0.0 - 35.0 | [facility] | | | Peroxidase | Performed: [place] | IU/mL | . CYNTHIA | | | Antibody | [facility] | | MEDICAL | | | | [place], [facility] [address] , | | [place] - | | | | [place] [address] | | LABORATORY | | | | CLIA: [id number] | | | | + + + + + + + + | Specimen | + + | | + + + + + + + | Performing | Address | City/State/Zipcode | Phone Number | | Organization | | | | + + + + + | [facility] | [address] | [place] | [phone] | | [facility] | | [address] | | | - LABORATORY | | | | + + + + + | [facility] | [address] | [place] | | | [facility] | | [address] | | | - LABORATORY | | | | + + + + + Thyroglobulin / Thyroglobulin Antibody (06/29/2012 4:49 PM PST) + + + + + + | Component | Value | Ref Range | Performed | Pathologist | | | | | At | Signature | + + + + + + | Thyroglobul | <20.0Comment: Testing | 0.0 - 40.0 | [facility] | | | in Ab | Performed: [place] | IU/mL | [facility] | | | | [facility] | | MEDICAL | | | | [place], [facility] [address], | | [place] - | | | | [place] [address] | | LABORATORY | | | | CLIA: [id number] | | | | + + + + + + | Thyroglobul | 0.1 (L)Comment: Testing | 1.2 - 35.0 | [facility] | | | in | Performed: [place] | ng/mL | [facility] | | | | [facility] | | MEDICAL | | | | [place], [address], | | [place] - | | | | [place] [address] | | LABORATORY | | | | CLIA: [id number] | | | | + + + + + + + + | Specimen | + + | | + + + + + + + | Performing | Address | City/State/Zipcode | Phone Number | | Organization | | | | + + + + + | [facility] | [address] | [place] | [phone] | | [facility] | | [address] | | | - LABORATORY | | | | + + + + + | [facility] | [address] | [place] | | | [facility] | | [address] | | | - LABORATORY | | | | + + + + + TSH (06/29/2012 4:49 PM PST) + + + + + + | Component | Value | Ref Range | Performed | Pathologist | | | | | At | Signature | + + + + + + | TSH | 55.29 (H)Comment: | 0.34 - 5.60 | [facility] | | | | Testing performed on the | uIU/mL | [facility] | | | | [facility] | | MEDICAL | | | | Analyzer. | | CENTER - | | | | | | LABORATORY | | + + + + + + + + | Specimen | + + | | + + + + + + + | Performing | Address | City/State/Zipcode | Phone Number | | Organization | | | | + + + + + | [facility] | [address] | [place], [place] | [phone] | | [facility] | | [address] | | | - LABORATORY | | | | + + + + + | [facility] | [address] | [place] | | | [facility] | | [address] | | | - LABORATORY | | | | + + + + + documented in this encounter Visit Diagnoses Not on filedocumented in this encounter"
--- OUTSIDE RECORDS SUMMARY | ~2019-07-09 | XMS | Encounter Summary ---
Demographics + + + | Address | [address] | | | [place] [address] | + + + | Home Phone | | + + + | Preferred Language | Unknown | + + + | Marital Status | | + + + | Zoroastrian Affiliation | Unknown | + + + | Race | Unknown | + + + | Ethnic Group | Unknown | + + + Author + + + | Author | [facility] | | | and [place] | + + + | Organization | [facility] | | | and [place] [...] | | Kim | | [place] [address] | | + + + + + | Gita Merino | ECON | [address] | | | | | [place], | | | | | [place] [address] | | + + + + + Care Team Providers + +------+ + | Care Manager Credit Collections Name | Role | Phone | + +------+ + PCP | Unavailable | + +------+ + Encounter Details +--------+ + + + + | Date | Type | Department | Care Team | Description | +--------+ + + + + | 09/13/ | Hospital | [facility] | Wagner Pollock, | | | 2012 - | Encounter | MED CTR CANCER | [place] [address] | | | | | [place] [address] | [place] | | | [birth year]/ | | [place] | [address] | | | 2012 | | [address] | [phone] | | | | | [phone] | | | +--------+ + + + [...]
--- OUTSIDE RECORDS SUMMARY | ~2019-07-09 | XMS | Encounter Summary ---
Demographics + + + | Address | [address] | | | [place] [address] | + + + | Home Phone | | + + + | Preferred Language | Unknown | + + + | Marital Status | | + + + | Pentecostalism Affiliation | Unknown | + + + | Race | Unknown | + + + | Ethnic Group | Unknown | + + + Author + + + | Author | [facility] | | | and [place] | + + + | Organization | [facility] | | | and [place] [...] | | Kim | | [place] [address] | | + + + + + | Gita Merino | ECON | [address] | | | | | [place], | | | | | [place] [address] | | + + + + + Care Team Providers + +------+ + | Care Devops Solutions Architect Name | Role | Phone | + +------+ + PCP | Unavailable | + +------+ + Encounter Details +--------+ + + + + | Date | Type | Department | Care Team | Description | +--------+ + + + + | 02/16/ | Hospital | [facility] | Wagner Pollock, | | | 2011 - | Encounter | MED CTR CANCER | [place] [address] | | | | | [place] [address] | [place] | | | 02/[birth year]/ | | [place] | [address] | | | 2011 | | [address] | [phone] | | | | | [phone] | | | +--------+ + + + [...] + + documented as of this encounter Progress Notes Wagner Pollock MD - 02/17/2012 1:50 AM PDTDATE: 02/18/2012 RADIATION ONCOLOGY CONSULTATION NOTE DIAGNOSIS: REFERRING PHYSICIAN Dr. James Masters. PRIMARY CARE PHYSICIAN: Dr. Grayson ECOG PERFORMANCE STATUS: 0. DIAGNOSIS: Thyroid plot papillary carcinoma, follicular variant, pathologic T1a N0, MX. HISTORY OF PRESENT ILLNESS: Ms. Supriya Alvarez is a 31-year-old female with a several year history of hypothyroidism. Presented to [facility] back in 2010 with complaints of fatigue, weight gain, and feeling cold, similar symptoms to what she had prior to her diag nosis of hypothyroidism. She states that she had not taken her thyroid medication for some time. She suspected this was related to hypothyroidism and labs were checked. She was event gisellallmikhail seen by Dr. James Masters in October of this year. who also did check labs as well as he did order an ultrasound of the neck for thyroid enlargement. That ultrasound did show an enlarged thyroid gland with no nodules noted in either lobe. However , adjacent to the caud al end of the left lobe, there was a 1.3 x 1.3 cm nodule. 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 Because of these abnormalities, Dr. Masters did elect to take the patient for total thyroidectomy on 01/26/2012. Frozen section in the operating randy m was consistent with follicular variant papillary carcinoma, and because of this completi on thyroidectomy performed. Final pathology from that resection did reveal severe chronic H ashimoto's thyroiditis as well as 2 nodules consistent with follicular variant papillary ca rcinoma. The larger measuring 0.8 cm and the smaller 0.3 cm. No angiolymphatic invasion was identified, and both lesions were confined within the capsule. Six parathyroid lymph nodes were removed, all of which were negative for metastatic disease. Dr. Masters did restart he r on Synthroid following the surgery and did send her to me for consideration of adjuvant iodine ablation. Supriya states that she is recovering well from this since the surgery. She does occasiona lly have a globus sensation with swallowing but states that she is feeling well. She states that when talking at a normal level her voice is normal, but she has a harder time raising her voice or yelling. PAST MEDICAL HISTORY: Includes hypothyroidism as described above. She did develop hydronep hrosis during back in 2001 requiring stents which did resolve after the . PAST SURGICAL HISTORY: Includes x3, laparoscopic cholecystectomy, recent fibroid ectomy as described above, kidney stents, tonsillectomy and adenoidectomy and tubal ligatio n. ARMATURE WINDER HISTORY: The patient is G6, P6, was on control pills off and on intermittently f or years. First child at age 18. Menarche at age of 13. She has been having normal menstrua l periods with her last period on 01/21/2012. ALLERGIES: FLAGYL CAUSED A RASH. MEDICATIONS Synthroid 150 mcg daily. SOCIAL HISTORY: Denies any history of alcohol or tobacco use. and lives with her rosalino pardo and children in [place], [place]. FAMILY MEDICAL HISTORY: No known family history of cancer. Multiple family members do have hypothyroidism. REVIEW OF SYSTEMS GENERAL: The patient describes a globus sensation but no significant pain. Denies any rece nt significant weight loss. Denies any fevers, chills, or night sweats. HEENT: Denies any changes in vision, changes in hearing difficulty, does describe a global sensation, but otherwise no abnormalities in the neck. SKIN: Denies any skin lesions, rashes or bumps. Denies any alopecia. RESPIRATORY: Denies any cough, wheezing or hemoptysis. CARDIOVASCULAR: Denies any chest pain or palpitations. GI: Denies any nausea, vomiting, diarrhea, or constipation. : Denies any hematuria, dysuria, pyuria or irregular vaginal bleeding or discharge. MUSCULOSKELETAL: Denies any unusual bony aches or pains. ENDOCRINE: Does have a long history of hypothyroidism. Presently denies any hair loss, enrike ght loss or weight gain, voice changes, emotional lability. RADIOLOGY: Ultrasound of the neck on 11/21/2011 did show a 1.3 x 1.3 cm nodule adjacent to the left lobe of the thyroid. PATHOLOGY: Total thyroidectomy on 01/26/2012 consistent with chronic Rachel' s thyroidi tis with a 0.8 cm x 0.3 cm follicular variant papillary carcinoma. No extrathyroidal extens ion was noted, and 0 out of 6 lymph nodes were positive for metastatic disease. ASSESSMENT AND PLAN: Ms. Supriya Alvarez is a 31-year-old female with a recent history of 2 nodules consistent with follicular variant papillary thyroid carcinoma status post total t hyroidectomy. We did discuss the role of iodine ablation following a total thyroidectomy an d did state that it can serve 3 purposes including ablating residual normal thyroid tissue that is left behind following surgery. This does allow increased sensitivity and specificit y followup iodine 131 whole body scans as well as the thyroglobulin level measurement. Als o, will destroy occult carcinoma that may have been left behind following the surgery, thus decreasing the recurrence rate. Also, allows ease of use interpreting postop iodine scan t o detect recurrence. I did state that while she is at low risk for local recurrence because of the small size of her disease that she will have many years of further followup and iod ine ablation will make this much easier. That being said, even with a low level of disease that she has, I have had patients with similar presentation that have had metastatic disea se. We did discuss the iodine ablation procedure including the need for low iodine diet for 2 weeks prior to the ablative dose, the need for thyroid hormone withdrawal versus the use of Thyrogen to stimulate the TSH. I did state that she could be off her Synthroid for 6 we eks or we could use 2 Thyrogen injections to adequately stimulate the TSH in order to stimu late the thyroid tissue to uptake the iodine dose. We have tentatively scheduled her to re ceive her ablative dose on 03/10. Therefore, she will start on a low iodine diet on 02/23, and I do anticipate delivering the Thyrogen injections 2 days prior to the dose. We will ch cruz a thyroglobulin level at the time of her dose to establish a pre-ablation baseline. We did discuss the potential risks and side effects associated with radioactive iodine ablatio n, including, but not limited to, radiation sialadenitis, nausea, vomiting, radiation gastr itis, change in taste, radiation cystitis, loose or diarrheal stools, low risk but possibi lity for leukopenia and thrombocytopenia, lacrimal gland dysfunction. She also will be at a future risk of infertility or having a miscarriage. She has had a tubal ligation, and preg lis would be unlikely. The patient and her were allowed to ask any questions, and they are answered to the best of my ability. She does wish to proceed, and as noted she is scheduled for her ablative dose on 03/10, which will be followed by a whole body iodine sc an 7-10 days later. DICTATED BY: Wagner Pollock MD Radiation Oncology JOB #: [id number] EXT JOB #:[id number] <Electronicall y Signed by Wagner Pollock MD> 03/04/12 2332 documented in this encounter Plan of Treatment Not on filedocumented as of this encounter Visit Diagnoses Not on filedocumented in this encounter"
--- OUTSIDE RECORDS SUMMARY | ~2019-07-09 | XMS | Encounter Summary ---
Demographics + + + | Address | [address] | | | [place] [address] | + + + | Home Phone | | + + + | Preferred Language | Unknown | + + + | Marital Status | | + + + | Adventism Affiliation | Unknown | + + + | Race | Unknown | + + + | Ethnic Group | Unknown | + + + Author + + + | Author | [facility] | | | and [place] | + + + | Organization | [facility] | | | and [place] [...] | | Kim | | [place] [address] | | + + + + + | Gita Merino | ECON | [address] | | | | | [place], | | | | | [place] [address] | | + + + + + Care Team Providers + +------+ + | Care Economic History Teacher Name | Role | Phone | [...] | | | | | [address] [place] | [place], [place] | | | | | [place] | [address] | | | | | [address] | [phone] | | | | | [phone] | | | +--------+ + + + [...] Performed At | + + + | [facility] Diagnostic Imaging Department | [facility] | | [address] | [facility] | | WHOLE BODY 131 SCAN 03/16/2012 | DIAG IMG | | CLINICAL HISTORY: POST THYROID RESECTION [...] Transcribed | | | Date/Time: 03/16/2012 14:13 Wood Borer: | | | <Electronically Signed by Sinan Baugh MD> 03/16/12 1419 | | + + + + + | Procedure Note | + + | Kristofer, Rad Conversion - 09/30/2013 5:45 PM [facility] | | Diagnostic Imaging Department | | [address] | | | | | | | [...] | Transcribed Date/Time: 03/16/2012 14:13 | | Wood Borer: | | <Electronically Signed by Sinan Baugh MD> 03/16/12 1419 | + + + +---------+ + + | Performing | Address | City/State/Zipcode | Phone Number | | Organization | | | | + +---------+ + + | [place] | | | | | [facility] | | | | + +---------+ + + documented in this encounter Visit Diagnoses Not on filedocumented in this encounter"
--- OUTSIDE RECORDS SUMMARY | ~2019-07-09 | XMS | Encounter Summary ---
Demographics + + + | Address | [address] | | | [place] [address] | + + + | Home Phone | | + + + | Preferred Language | Unknown | + + + | Marital Status | | + + + | Confucianist Affiliation | Unknown | + + + | Race | Unknown | + + + | Ethnic Group | Unknown | + + + Author + + + | Author | [facility] | | | and [place] | + + + | Organization | [facility] | | | and [...] | | Kim | | [place] [address] | | + + + + + | Gita Merino | ECON | [address] | | | | | [place], | | | | | [place] [address] | | + + + + + Care Team Providers + +------+ + | Care Hand Shaper Name | Role | Phone | + +------+ + PCP | Unavailable | + +------+ + Encounter Details +--------+ + + + + | Date | Type | Department | Care Team | Description | +--------+ + + + + | 03/09/ | Hospital | [facility] | Wagner Pollock, | | | 2011 - | Encounter | MED CTR CANCER | [place] [address] | | | | | [place] [address] | [place] | | | 03/23/ | | [place] | [address] | | | 2011 | | [address] | [phone] | | | | | [phone] | | | +--------+ + + + [...] + | THYROGLOBULIN / | Routin | 03/09/2012 | | Results for this | | THYROGLOBULIN | e | 3:51 PM | | procedure are in the | | ANTIBODY | | PDT | | results section. | + +--------+ + + + | THYROPEROXIDASE | Routin | 03/09/2012 | | Results for this | | ANTIBODIES | e | 3:51 PM | | procedure are in the | | | | PDT | | results section. | + +--------+ + + + | , SERUM, | Routin | 03/09/2012 | | Results for this | | QUAL | e | 3:51 PM | | procedure are in the | | | | PDT | | results section. | + +--------+ + + + | TSH | Routin | 03/09/2012 | | Results for this | | | e | 3:51 PM | | procedure are in the | | | | PDT | | results section. | + +--------+ + + + documented in this encounter Results Thyroid peroxidase antibody (03/09/2012 3:51 PM PDT) + + + + + + | Component | Value | Ref Range | Performed | Pathologist | | | | | At | Signature | + + + + + + | Thyroid | 61.4 (H)Comment: Testing | 0.0 - 35.0 | [facility] | | | Peroxidase | Performed: [place] | IU/mL | [facility] | | | Antibody | [facility] | | MEDICAL | | | | [address] | | CENTER - | | | | [place] [address] | | LABORATORY | | | | CLIA: [id number] | | | | + + + + + + + + | Specimen | + + | | + + + + + + + | Performing | Address | City/State/Zipcode | Phone Number | | Organization | | | | + + + + + | [facility] | [address] | [place], [place] | [phone] | | [facility] | | [address] | | | - LABORATORY | | | | + + + + + | [facility] | [address] | [place], [place] | | | [facility] | | [address] | | | - LABORATORY | | | | + + + + + Thyroglobulin / Thyroglobulin Antibody (03/09/2012 3:51 PM PDT) + + + + + + | Component | Value | Ref Range | Performed | Pathologist | | | | | At | Signature | + + + + + + | Thyroglobul | <20.0Comment: Testing | 0.0 - 40.0 | [facility] | | | in Ab | Performed: [place] | IU/mL | [facility] | | | | [facility] | | MEDICAL | | | | [address], | | CENTER - | | | | [place] [address] | | LABORATORY | | | | CLIA: [id number] | | | | + + + + + + | Thyroglobul | 4.2Comment: Testing | 1.2 - 35.0 | [facility] | | | in | Performed: [place] | ng/mL | [facility] | | | | [facility] | | MEDICAL | | | | [address], | | CENTER - | | | | [place] [address] | | LABORATORY | | | | [place]: [id number] | | | | + + + + + + + + | Specimen | + + | | + + + + + + + | Performing | Address | City/State/Zipcode | Phone Number | | Organization | | | | + + + + + | [facility] | [address] | [place] | [phone] | | [facility] | | [address] | | | - LABORATORY | | | | + + + + + | [facility] | [address] | [place] | | | [facility] | | [address] | | | - LABORATORY | | | | + + + + + TSH (03/09/2012 3:51 PM PDT) + + + + + + | Component | Value | Ref Range | Performed | Pathologist | | | | | At | Signature | + + + + + + | TSH | 85.59 (H)Comment: | 0.34 - 5.60 | [facility] | | | | Testing performed on the | uIU/mL | [facility] | | | | [facility] [...] + | [facility] | [address] | [place], [place] | [phone] | | [facility] | | [address] | | | - LABORATORY | | | | + + + + + | [facility] | [address] | [place], [place] | | | [facility] | | [address] | | | - LABORATORY | | | | + + + + + HCG, Serum, Qual (03/09/2012 3:51 PM PDT) + + + + + + | Component | Value | Ref Range | Performed | Pathologist | | | | | At | Signature | + + + + + + | Preg, Serum | NEGATIVEComment: | NEGATIVE | [facility] | | | | @INTERNAL CONTROL OK?: | | [facility] | | | | RED CONTROL LINE | | MEDICAL | | | | APPEARS? YES | | CENTER - | | | | | | LABORATORY | | + + + + + + + + | Specimen | + + | | + + + + + + + | Performing | Address | City/State/Zipcode | Phone Number | | Organization | | | | + + + + + | [facility] | [address] | [place] | [phone] | | [facility] | | [address] | | | - LABORATORY | | | | + + + + + | [facility] | [address] | [place], [place] | | | [facility] | | [address] | | | - LABORATORY | | | | + + + + + documented in this encounter Visit Diagnoses Not on filedocumented in this encounter"
--- OUTSIDE RECORDS SUMMARY | ~2019-07-09 | XMS | Encounter Summary ---
Demographics + + + | Address | [address] | | | [place] [address] | + + + | Home Phone | | + + + | Preferred Language | Unknown | + + + | Marital Status | | + + + | Druze Affiliation | Unknown | + + + | Race | Unknown | + + + | Ethnic Group | Unknown | + + + Author + + + | Author | [facility] | | | and [place] | + + + | Organization | [facility] | | | and [...] | | Kim | | [place] [address] | | + + + + + | Gita Merino | ECON | [address] | | | | | [place], | | | | | [place] [address] | | + + + + + Care Team Providers + +------+ + | Care Spa Host Name | Role | Phone | + +------+ + PCP | Unavailable | + +------+ + Encounter Details +--------+ + + + + | Date | Type | Department | Care Team | Description | +--------+ + + + + | 10/08/ | Hospital | [facility] | Wagner Pollock, | | | 2012 - | Encounter | MED CTR CANCER | [place] [address] | | | | | [place] [address] | [place] | | | 10/21/ | | [place] | [address] | | | 2012 | | [address] | [phone] | | | | | [phone] | | | +--------+ + + + [...] [facility] | | | in | Performed: [place] | ng/mL | [facility] | | | | [facility] | | MEDICAL | | | | [place], [address], | | CENTER - | | | | [place] [address] | | LABORATORY | | | | CLIA: [id number] | | | | + + + + + + + + | Specimen | + + | | + + + + + + + | Performing | Address | City/State/Zipcode | Phone Number | | Organization | | | | + + + + + | [facility] | [address] | [place] | [phone] | | [facility] | | [address] | | | - LABORATORY | | | | + + + + + | [facility] | [address] | [place] | | | [facility] | | [address] | | | - LABORATORY | | [...] + | [facility] | [address] | [place] | [phone] | | [facility] | | [address] | | | - LABORATORY | | | | + + + + + | [facility] | [address] | [place] | | | [facility] | | [address] | | | - LABORATORY | | | | + + + + + documented in this encounter Visit Diagnoses Not on filedocumented in this encounter"
--- OUTSIDE RECORDS SUMMARY | ~2019-07-09 | XMS | Encounter Summary ---
Demographics + + + | Address | [address] | | | [place] [address] | + + + | Home Phone | | + + + | Preferred Language | Unknown | + + + | Marital Status | | + + + | Scientology Affiliation | Unknown | + + + | Race | Unknown | + + + | Ethnic Group | Unknown | + + + Author + + + | Author | [facility] | | | and [place] | + + + | Organization | [facility] | | | and [place] | [...] | | Kim | | [place] [address] | | + + + + + | Gita Merino | ECON | [address] | | | | | [place], | | | | | [place] [address] | | + + + + + Care Team Providers + +------+ + | Care Rocket Test Fire Worker Name | Role | Phone | + +------+ + PCP | Unavailable | + +------+ + Encounter Details +--------+ + + + + | Date | Type | Department | Care Team | Description | +--------+ + + + + | 02/16/ | Hospital | [facility] | Wagner Pollock, | | | 2011 - | Encounter | MED CTR CANCER | [place] [address] | | | | | [facility] [address] | [place] | | | 02/20/ | | [place] | [address] | | | 2011 | | [address] | [phone] | | | | | [phone] | | | +--------+ + + + [...] tonsillectomy and adenoidectomy and tubal ligatio n. PAPER PRODUCTS INSPECTOR HISTORY: The patient is G6, P6, was [...] with her rosalino pardo and children in [place], [place]. FAMILY MEDICAL HISTORY: No known family [...] Wagner Pollock MD Radiation Oncology JOB #: [id number] EXT JOB #:[id number] <Electronicall y Signed by Wagner Pollock MD> 03/04/12 2332 documented in this encounter Plan of Treatment Not on filedocumented as of this encounter Visit Diagnoses Not on filedocumented in this encounter"
--- OUTSIDE RECORDS SUMMARY | ~2019-07-09 | XMS | Encounter Summary ---
Demographics + + + | Address | [address] | | | [place] [address] | + + + | Home Phone | | + + + | Preferred Language | Unknown | + + + | Marital Status | | + + + | Shinto Affiliation | Unknown | + + + | Race | Unknown | + + + | Ethnic Group | Unknown | + + + Author + + + | Author | [facility] | | | and [place] | + + + | Organization | [facility] | [...] | | Kim | | [place] [address] | | + + + + + | Gita Merino | ECON | [address] | | | | | [place], | | | | | [place] [address] | | + + + + + Care Team Providers + +------+ + | Care Pantry Worker Name | Role | Phone | + +------+ + PCP | Unavailable | + +------+ + Encounter Details +--------+ + + + + | Date | Type | Department | Care Team | Description | +--------+ + + + + | 10/06/ | Hospital | [facility] | Wagner Pollock, | | | 2012 - | Encounter | MED CTR XRAY [address] | [place] [address] | | | | | [place] | [place], [place] | | | 10/08/ | | [place] [address] | [address] | | | 2012 | | [phone] | [phone] | | | | | | | [...] + + | [place] THYROID CANCER | Routin | 10/08/2012 | | Results for this | | METASTATIC SCAN | e | 11:18 AM | | procedure are in the | | WHOLE BODY W UPTAKE | | PST | | results section. | + +--------+ + + + documented in this encounter Results NM Thyroid Metastatic Scan WB W Uptake (10/08/2012 11:18 AM PST) + + | Specimen | + + | | + + + + + | Narrative | Performed At | + + + | [facility] Diagnostic Imaging | [facility] | | Department [address], [place] | [facility] | | [ rep ct [address]] [ rep ct [facility] | | st zip] Signed | - IMAGING | | | | | Patient Name: MARANDA JOHNSON Physician: | | | [id number] : 1980 Age: 32 Sex: F Unit #: [id number] | | | Exam Date: 10/06/12 Location: [facility] | | | Report #: [id number] Page: | | | %(RAD)RES..mtdd.print.filter("pg") of %(RAD) | | | RES..mtdd.print.filter("tpg") | | | | | | Accession Number: [id number] | | | WHOLE BODY I-131 SCAN, 10/08/2012 CLINICAL HISTORY: | | | THYROID ABLATION IN February,. FOLLOWUP STUDY. | | | FINDINGS: The patient is given 3.87 mCi of I-131 followed by | | | scanning at forty-eight hours, both locally in the neck and whole | | | body. Physiologic amounts of Iodine activity are seen in | | | the gastric mucosa, kidneys and urinary bladder. Activity is also | | | seen in the salivary regions. No activity is present in the neck or | | | upper mediastinum to suggest residual viable thyroid tissue. No | | | other ectopic areas of tracer activity are present to suggest | | | Iodine-avid metastatic disease. IMPRESSION: 1. NO | | | RESIDUAL THYROID OR IODINE-AVID METASTATIC DISEASE IS PRESENT. | | | Dictated Date/Time: 10/08/2012 11:18 Transcribed | | | Date/Time: 10/08/2012 11:34 Supply Assistant: | | | <<Signature on File>> | | | | | | Vic Barker MD10/08/12 1213 <Electronically signed by | | | Vic Barker MD> Vic Barker MD 10/08/12 | | | 1118 Supply Assistant: [employer] [id number]/15/13 1134 | | | Wagner Pollock MD | | + + + + + + + + | Performing | Address | City/State/Zipcode | Phone Number | | Organization | | | | + + + + + | [facility] | [address] | [place] | [phone] | | [facility] | | [address] | | | - IMAGING | | | | + + + + + documented in this encounter Visit Diagnoses Not on filedocumented in this encounter
--- OUTSIDE RECORDS SUMMARY | ~2019-07-09 | XMS | Encounter Summary ---
Demographics + + + | Address | [address] | | | [place] [address] | + + + | Home Phone | | + + + | Preferred Language | Unknown | + + + | Marital Status | | + + + | Anglican Affiliation | Unknown | + + + | Race | Unknown | + + + | Ethnic Group | Unknown | + + + Author + + + | Author | [facility] | | | and Amadoana | + + + | Organization | [facility] | | | and [...] | | Kim | | [place] [address] | | + + + + + | Gita Merino | ECON | [address] | | | | | [place], | | | | | [place] [address] | | + + + + + Care Team Providers + +------+ + | Care Professor In Family Studies Name | Role | Phone | + [...] | | rotator | MD Pieter | [facility] | | | | | cuff | [address] | [place], | | | | | | [place] | [place] | | | | | | [place] | [address] | | | | | | [address] | Phone: | | | | | | Phone: | [phone] | | | | | | [phone] | Fax: | | | | | | Fax: | [phone] | | | | | | [phone] | | +--------+ + + + + + Reason for Visit + + + | Reason | Comments | + + + | Shoulder Pain | | + + + Encounter Details +--------+ + + + + | Date | Type | Department | Care Team | Description | +--------+ + + + + | 08/07/ | Emergency | [facility] | Marco Antonio Harry | Incomplete tear of | | 2017 | | MED CTR EMERGENCY | Baljit Stapleton MD | left rotator cuff | | | | CENTER [address] | [address] | (Primary Dx) | | | | [place] | [place] | | | | | [address] | [address] | | | | | [phone] | | | +--------+ + + + [...] as of this encounter Plan of Treatment + + [...] | | | | | | | 1933, Patient Address: [facility] [address] | | | | | | | [address];[place] [address], | | | | | | + + + + +------+------+ +---+---+ | | | +---+---+ documented in this encounter
--- OUTSIDE RECORDS SUMMARY | ~2019-07-09 | XMS | Encounter Summary ---
Demographics + + + | Address | [address] | | | [place] [address] | + + + | Home Phone | | + + + | Preferred Language | Unknown | + + + | Marital Status | | + + + | Evangelical Affiliation | Unknown | + + + | Race | Unknown | + + + | Ethnic Group | Unknown | + + + Author + + + | Author | [facility] | | | and Amadoana | + + + | Organization | [facility] | | | and [...] | | Kim | | [place] [address] | | + + + + + | Gita Merino | ECON | [address] | | | | | [place], | | | | | [place] [address] | | + + + + + Care Team Providers + +------+ + | Care Steam Fitter Supervisor Name | Role | Phone | + +------+ + PCP | Unavailable | + +------+ + Encounter Details +--------+ + + + + | Date | Type | Department | Care Team | Description | +--------+ + + + + | 03/10/ | Hospital | [facility] | Phill Wagner Saqib, | | | 2011 | Encounter | MED CTR XRAY [address] | MD [address] | | | | | [place] | [place], [place] | | | | | [place] [address] | [address] | | | | | [phone] | [phone] | | | | | | | [...]
--- OUTSIDE RECORDS SUMMARY | ~2019-07-09 | XMS | Clinical Summary ---
Demographics + + + | Address | [address] | | | [place] [address] | + + + | Home Phone | | + + + | Preferred Language | Unknown | + + + | Marital Status | | + + + | Restorationism Affiliation | Unknown | + + + | Race | Unknown | + + + | Ethnic Group | Unknown | + + + Author + + + | Author | [employer] (Historical as of | | | 04-09-19) | + + + | Organization | [employer] (Historical as of | | | 04-09-19) | + + + | Address | Unknown | + + + | Phone | Unavailable | + + + Care Team Providers + +------+ + | Care Hatchery Man Name | Role | Phone | + +------+ + PP | Unavailable | + +------+ + Allergies Not on File Current Medications Not on file Active Problems Not on file Social History + +-------+ +--------+------+ | Tobacco [...] on file | | + + + Plan of Treatment + + + + + | Health Maintenance | Due Date | Last Done | Comments | + + + + + | Vaccine: | | | | | Dtap/Tdap/Td (1 - | 1 | | | | Tdap) | | | | + + + + + | Cervical Cancer | | | | | Screening (Pap) | 2 | | | + + + + + | Vaccine: Influenza | | | | | (#1) | 9 | | | + + + + + Results Not on filefrom Last 3 Months Insurance +---------+--------+ +------+-------+ + | Payer | Benefi | Subscriber | Type | Phone | Address | | | t Plan | ID | | | | | | / | | | | | | | Group | | | | | +---------+--------+ +------+-------+ + | PREMERA | PREMER | [id number] | | | [address] [address] | | | A BLUE | | | | [place], [place] | | | [place] | | | | [address] | | | FED | | | | | | | PPO | | | | | +---------+--------+ +------+-------+ + + +--------+ +--------+ + + | Guarantor Name | Accoun | Relation to | Date | Phone | Billing Address | | | t Type | Patient | of | | | | | | | | | | + +--------+ +--------+ + + | NAKIA JOHNSON | Person | Spouse | 04/05/ | Work: | [address] | | | al/[place] | | 1972 | [phone] | [place] [address] | | | [place] | | | [address]: | | | | | | | | | | | | | | [phone] | | | | | | | [address] | | + +--------+ +--------+ + +"
--- OUTSIDE RECORDS SUMMARY | ~2019-07-09 | XMS | Encounter Summary ---
Demographics + + + | Address | [address] | | | [place] [address] | + + + | Home Phone | | + + + | Preferred Language | Unknown | + + + | Marital Status | | + + + | Bahai Affiliation | Unknown | + + + | Race | Unknown | + + + | Ethnic Group | Unknown | + + + Author + + + | Author | [facility] | | | and Amadoana | + + + | Organization | [facility] | | | and [place] [...] | | Kim | | [place] [address] | | + + + + + | Gita Merino | ECON | [address] | | | | | [place], | | | | | [place] [address] | | + + + + + Care Team Providers + +------+ + | Care Finished Metal Repairer Name | Role | Phone | + +------+ + PCP | Unavailable | + +------+ + Encounter Details +--------+ + + + + | Date | Type | Department | Care Team | Description | +--------+ + + + + | 07/27/ | Hospital | [facility] | | | | 2000 | Encounter | MED CTR EMERGENCY | | | | | | CENTER [address] | | | | | | [place], [place] | | | | | | [address] | | | | | | [phone] | | | +--------+ + + + [...]
--- OUTSIDE RECORDS SUMMARY | ~2019-07-09 | XMS | Encounter Summary ---
Demographics + + + | Address | [address] | | | [place] [address] | + + + | Home Phone | | + + + | Preferred Language | Unknown | + + + | Marital Status | | + + + | Adventism Affiliation | Unknown | + + + | Race | Unknown | + + + | Ethnic Group | Unknown | + + + Author + + + | Author | [facility] | | | and Amadoana | + + + | Organization | [facility] | | | and [...] | | Kim | | [place] [address] | | + + + + + | Gita Merino | ECON | [address] | | | | | [place], | | | | | [place] [address] | | + + + + + Care Team Providers + +------+ + | Care Upholstery Trimmer Name | Role | Phone | + [...] | | | [address] | [place] [facility] [place] | | | | | [place], [place] | [address] | | | | | [address] | | | | | | [phone] | | | +--------+ + + + [...] TR Vmax: 2.56 m/s | | | Tiller Man: Authenticated by: RAMIREZ OCAMPO MD Report Date/Time: [...] cmLVIDd: 5.04 cmLVPWd: 0.93 cmLVOT Area: 2.74 ap2JAAJ Diam: | | 1.86 cm%FS: 36.41 %EF(Teich): [...] (A-L): | | 19.90 ml/m2LAAs A2C: 15.84 aw3XSWKS A-L A2C: 43.16 mlLALs A2C: 4.93 cmLAAs A4C: | | 17.29 pn2LNPTK A-L A4C: 53.65 mlLALs A4C: 4.73 cmRAAs: 15.13 bk2YHXMT A-L: | | 41.81 mlRAESV MOD: 40.65 mlRALs: 4.64 cmTAPSE: 2.69 cmAV maxP.07 mmHgAV | | meanP.94 mmHgAV Vmax: 1.58 m/Layla Vmean: 1.17 m/Layla VTI: 32.43 cmAVA Vmax: | | 1.95 cm2AVA (VTI): 2.29 jp8KHIX Vmax: 0.00 cm2/m2AVAI (VTI): 0.00 cm2/m2LVOT | | maxP.12 mmHgLVOT meanP.71 mmHgLVSI Dopp: 30.11 ml/m2LVSV Dopp: 74.37 | | mlLVOT Vmax: 1.13 m/sLVOT Vmean: 0.77 m/sLVOT VTI: 27.10 cmMV A Blair: 0.63 m/sMV | | DecT: 237.08 msMV E Blair: 0.66 m/sMV E/A Ratio: 1.04MV PHT: 68.75 msMVA By PHT: | | 3.19 li2Lotykj e': 0.09 m/sSeptal E/e': 6.78Lateral e': 0.13 m/sLateral E/e': | | 4.83RAP: 5 mmHgRVSP: 31.29 mmHgTR maxP.29 mmHgTR Vmax: 2.56 m/s | | Tiller Man:Authenticated by: [facility] Date/Time: 08-25-2017 16:42:55 | | IMPRESSION: 1. [...] |TR Vmax: 2.56 m/s | | | |Tiller Man: | |Authenticated by: RAMIREZ OCAMPO MD | [...]
--- OUTSIDE RECORDS SUMMARY | ~2019-07-09 | XMS | Encounter Summary ---
Demographics + + + | Address | [address] | | | [place] [address] | + + + | Home Phone [...] | [facility] | | | and Amadoana | + + + | Organization | [facility] | | | and [...] | | Kim | | [place] [address] | | + + + + + | Gita Merino | ECON | [address] | | | | | [place], | | | | | [place] [address] | | + + + + + Care Team Providers + +------+ + | Care Elementary Summer School Teacher Name | Role | Phone | [...] + + | 02/28/ | Emergency | [facility] | Anderson Ochoa, | Cellulitis of breast | | 2017 | | MED CTR EMERGENCY | [place] [address] | (Primary Dx) | | | | CENTER [address] | [place] | | | | | [place] | [address] | | | | | [address] | | | | | | [phone] | | | +--------+ + + + [...] through Care Everywhere.CELLULITIS, DIS CHARGE INSTRUCTIONS FOR (MARSHALLESE)documented in this encounter Medications at Time of [...]
--- OUTSIDE RECORDS SUMMARY | ~2019-07-09 | XMS | Encounter Summary ---
Demographics + + + | Address | [address] | | | [place] [address] | + + + | Home Phone | | + + + | Preferred Language | Unknown | + + + | Marital Status | | + + + | Samaritan Affiliation | Unknown | + + + | Race | Unknown | + + + | Ethnic Group | Unknown | + + + Author + + + | Author | [facility] | | | and Amadoana | + + + | Organization | [facility] | [...] | | Kim | | [place] [address] | | + + + + + | Gita Merino | ECON | [address] | | | | | [place], | | | | | [place] [address] | | + + + + + Care Team Providers + +------+ + | Care Corporate General Manager Name | Role | Phone | + +------+ + PCP | Unavailable | + +------+ + Encounter Details +--------+ + + + + | Date | Type | Department | Care Team | Description | +--------+ + + + + | 03/09/ | Hospital | [facility] | Wagner Pollock, | | | 2011 - | Encounter | MED CTR CANCER | [place] [address] | | | | | [place] [address] | [place] | | | 03/23/ | | [place] | [address] | | | 2011 | | [address] | [phone] | | | | | [phone] | | | +--------+ + + + [...] [facility] | | | Peroxidase | Performed: [place] | IU/mL | [facility] | | | Antibody | [facility] | | MEDICAL | | | | [address] , | | CENTER - | | | | [place] [address] | | LABORATORY | | | | CLIA: [id number] | | | | + + + + + + + + | Specimen | + + | | + + + + + + + | Performing | Address | City/State/Zipcode | Phone Number | | Organization | | | | + + + + + | [facility] | [address] | [place], [place] | [phone] | | [facility] | | [address] | | | - LABORATORY | | | | + + + + + | [facility] | [address] | [place], [place] | | | [facility] | | [address] | | | - LABORATORY | | [...] | | | in Ab | Performed: [place] | IU/mL | [facility] | | | | [facility] | | MEDICAL | | | | [address], | | CENTER - | | | | [place] [address] | | LABORATORY | | | | CLIA: [id number] | | | | + + + + + + | Thyroglobul | 4.2Comment: Testing | 1.2 - 35.0 | [facility] | | | in | Performed: [place] | ng/mL | [facility] | | | | [facility] | | MEDICAL | | | | [address], | | CENTER - | | | | [place] [address] | | LABORATORY | | | | ENOCHIA: [id number] | | | | + + + + + + + + | Specimen | + + | | + + + + + + + | Performing | Address | City/State/Zipcode | Phone Number | | Organization | | | | + + + + + | [facility] | [address] | [place] | [phone] | | [facility] | | [address] | | | - LABORATORY | | | | + + + + + | [facility] | [address] | [place] | | | [facility] | | [address] | | | - LABORATORY | | [...] + | [facility] | [address] | [place], [place] | [phone] | | [facility] | | [address] | | | - LABORATORY | | | | + + + + + | [facility] | [address] | [place], [place] | | | [facility] | | [address] | | | - LABORATORY | | [...] + | [facility] | [address] | [place] | [phone] | | [facility] | | [address] | | | - LABORATORY | | | | + + + + + | [facility] | [address] | [place], [place] | | | [facility] | | [address] | | | - LABORATORY | | | | + + + + + documented in this encounter Visit Diagnoses Not on filedocumented in this encounter"
--- OUTSIDE RECORDS SUMMARY | ~2019-07-09 | XMS | Encounter Summary ---
Demographics + + + | Address | [address] | | | [place] [address] | + + + | Home Phone | | + + + | Preferred Language | Unknown | + + + | Marital Status | | + + + | Religion Affiliation | Unknown | + + + | Race | Unknown | + + + | Ethnic Group | Unknown | + + + Author + + + | Author | [facility] | | | and Amadoana | + + + | Organization | [facility] | | | and [...] | | Kim | | [place] [address] | | + + + + + | Gita Merino | ECON | [address] | | | | | [place], | | | | | [place] [address] | | + + + + + Care Team Providers + +------+ + | Care Check Writer Salesperson Name | Role | Phone | + +------+ + PCP | Unavailable | + +------+ + Encounter Details +--------+ + + + + | Date | Type | Department | Care Team | Description | +--------+ + + + + | 07/27/ | Hospital | [facility] | | | | 2000 | Encounter | MED CTR EMERGENCY | | | | | | CENTER [address] | | | | | | [place], [place] | | | | | | [address] | | | | | | [phone] | | | +--------+ + + + [...]
--- OUTSIDE RECORDS SUMMARY | ~2019-07-09 | XMS | Encounter Summary ---
Demographics + + + | Address | [address] | | | [place] [address] | + + + | Home Phone | | + + + | Preferred Language | Unknown | + + + | Marital Status | | + + + | Hinduism Affiliation | Unknown | + + + | Race | Unknown | + + + | Ethnic Group | Unknown | + + + Author + + + | Author | [facility] | | | and Amadoana | + + + | Organization | [facility] | | | [...] | | Kim | | [place] [address] | | + + + + + | Gita Merino | ECON | [address] | | | | | [place], | | | | | [place] [address] | | + + + + + Care Team Providers + +------+ + | Care Rn Building Name | Role | Phone | + +------+ + | Emmanuelle Uribe PA-C | PCP | | + +------+ + Encounter Details +--------+ + + + + | Date | Type | Department | Care Team | Description | +--------+ + + + + | 09/28/ | Hospital | [facility] | Benjamin Pendleton | | | 2013 | Encounter | MED CTR XRAY [address] | [address], [address] | | | | | [place] | [place], [place] | | | | | [place] [address] | [address] | | | | | [phone] | | | +--------+ + + + [...] Performed At | + + + | [facility] | [place] | | Department [address] [facility], [place] | [facility] | | [ rep [address]] [ rep [facility] | | st zip] Signed | - IMAGING | | | | | Patient Name: MARANDA JOHNSON Physician: | | | : 1980 Age: 33 Sex: F Unit #: [id number] | | | Exam Date: 09/28/13 Location: [facility] | | | Report #: [id number] Page: | | | %(RAD)RES..mtdd.print.filter("pg") of %(RAD) | | | RES..mtdd.print.filter("tpg") | | | | | | Accession Number: [id number] | | | PROCEDURE NOTE LUMBAR TRANSFORAMINAL EPIDURAL STEROID | | | INJECTION, 09/28/2013 CLINICAL HISTORY: ICD-9 CODE | | | 724.4 LUMBAR RADICULOPATHY Ms. Maarnda Johnson presents to | | | the [...] Transcribed Date/Time: | | | 09/28/2013 19:05 Industrial Illuminating Engineer: | | | <<Signature on File>> | | | Benjamin Santizo | | | MD Keerthi10/04/13 1816 <Electronically signed by Benjamin Santizo | | | Keerthi CHUN> Benjamin Pendleton MD 09/28/13 5032 | | | Industrial Illuminating Engineer: [employer] Jhvebxmnajanr55/05/14 7104 | | | Jere Grayson DO | | + + + + + + + + | Performing | Address | City/State/Zipcode | Phone Number | | Organization | | | | + + + + + | [facility] | [address] | [place] | [phone] | | [facility] | | [address] | | | - IMAGING | | | | + + + + + documented in this encounter Visit Diagnoses Not on filedocumented in this encounter
--- OUTSIDE RECORDS SUMMARY | ~2019-07-09 | XMS | Encounter Summary ---
Demographics + + + | Address | [address] | | | [place] [address] | + + + | Home Phone | | + + + | Preferred Language | Unknown | + + + | Marital Status | | + + + | Sikhism Affiliation | Unknown | + + + | Race | Unknown | + + + | Ethnic Group | Unknown | + + + Author + + + | Author | [facility] | | | and Amadoana | + + + | Organization | [facility] | | | and [place] | [...] | | Kim | | [place] [address] | | + + + + + | Gita Merino | ECON | [address] | | | | | [place], | | | | | [place] [address] | | + + + + + Care Team Providers + +------+ + | Care Agricultural Technical Officer Name | Role | Phone | + [...] + + | 03/22/ | Emergency | [facility] | Hal Dominguez | Headache, | | 2017 | | MED CTR EMERGENCY | [place] [address] | unspecified headache | | | | CENTER [address] | [address] [place] | type (Primary Dx); | | | | [place] | [place] [address] | Acute pain; Nausea | | | | [address] | [phone] | | | | | [phone] | | | +--------+ + + + [...] be sent through Care Everywhere.Headache, Unspe cified (Belarusian)documented in this encounter Medications at Time of [...] limiting the visualization of | | the C1-Q8xrmbaibf of the vertebral arteries bilaterally.No cervical lymphadenopathy. [...] + + | Performing | Address | City/State/[facility] | Phone Number | | Organization | [...] ST. | [address] | [place], [place] | [phone] | | [facility] | | [address] | | | - LABORATORY | | [...] + + | Performing | Address | City/State/[facility] | Phone Number | | Organization | | | | + + + + + | [facility] | [address] | [place] | [phone] | | [facility] | | [address] | | | - LABORATORY | | [...] 8 | 7 - 18 mg/dL | [facility] | | | | | | [facility] | | | | | | MEDICAL | | | | | | CENTER - | | | | | | LABORATORY | | + + + + + + | Creatinine | 0.82 | 0.60 - 1.30 | [facility] | | | | | mg/dL | [facility] | | | | | | MEDICAL | | | | | | CENTER - | | | | | | LABORATORY | | + + + + + + | eGFR if not | >60Comment: GLOMERULAR | >=60 | [facility] | | | | FILTRATION | mL/min/1.73m2 | [facility] | | | BENINESE | RATE,ESTIMATED | | MEDICAL | | | | mL/min/1.40o2Kfuw than | | CENTER - | | [...] [address] | [place] | [phone] | | [facility] | | [address] | | | - LABORATORY | | [...] | | | | g/dL | [facility] | | | | | | MEDICAL [...] [address] | [place] | [phone] | | [facility] | | [address] | | | - LABORATORY | | [...] | | | | | Intravenous, ONCE, Skippers 03/22/17 at | | PM PDT | | | | | 1900, For 1 dose | | | | | | + +--------+ +-------+------+------+ +---+---+ | | | +---+---+ + +-------+ +------+---+---+ | HYDROmorphone (DILAUDID) | Given | 03/22/20 | 1 mg | | | | injection 1 mg 1 mg, | | 17 6:38 | | | | | Intravenous, ONCE, Skippers 03/22/17 at | | PM PDT | [...] | | | CT Contrast Study, Starting Skippers | | | | | | | [...] | | | CT Contrast Study, Starting Skippers | | | 03/22/17 at 1900, For 1 dose, | | | Radiology | | + +---+ | | | + +---+ + +-------+ +-------+---+---+ | ketorolac (TORADOL) injection | Given | 03/22/20 | 15 mg | | | | 15 mg 15 mg, Intravenous, ONCE, | | 17 7:08 | | | | | Skippers 03/22/17 at 1900, For 1 dose | [...]
--- OUTSIDE RECORDS SUMMARY | ~2019-07-09 | XMS | Encounter Summary ---
Demographics + + + | Address | [address] | | | [place] [address] | + + + | Home Phone [...] + | Author | [facility] | | | and Amadoana | + + + | Organization | [facility] | [...] | | Kim | | [place] [address] | | + + + + + | Gita Merino | ECON | [address] | | | | | [place], | | | | | [place] [address] | | + + + + + Care Team Providers + +------+ + | Care Multiple Launch Rocket System Crewmember Name | Role | Phone | + +------+ + PCP | Unavailable | + +------+ + Encounter Details +--------+ + + + + | Date | Type | Department | Care Team | Description | +--------+ + + + + | 05/16/ | Hospital | [facility] | Dea Cruz | | | 2012 | Encounter | MED CTR EMERGENCY | DO Dina Head | | | | | CENTER [address] | [place], [place] | | | | | [place], [place] | [address] | | | | | [address] | | | | | | [phone] | | | +--------+ + + + [...]
--- OUTSIDE RECORDS SUMMARY | ~2019-07-09 | XMS | Clinical Summary ---
Demographics + + + | Address | [address] | | | [place] [address] | + + + | Home Phone | | + + + | Preferred Language | Unknown | + + + | Marital Status | | + + + | Christianity Affiliation | Unknown | + + + | Race | Unknown | + + + | Ethnic Group | Unknown | + + + Author + + + | Author | [employer] (Historical as of | | | 04-09-19) | + + + | Organization | [employer] (Historical as of | | | 04-09-19) | + + + | Address | Unknown | + + + | Phone | Unavailable | + + + Care Team Providers + +------+ + | Care Missile Pad Mechanic Name | Role | Phone | + [...] +------+-------+ + | [employer] | PREMER | [id number] | | | [address] [address] | | | A BLUE | | | | [place], [place] | | | CROSS | | | | [address] | | | FED | | | [...] | | [place] | | 1972 | [phone] | [place] [address] | | | [place] | | | [address]: | | | | | | | | | | | | | | [phone] | | | | | | [address] | | + +--------+ +--------+ + +"
--- OUTSIDE RECORDS SUMMARY | ~2019-07-09 | XMS | Encounter Summary ---
Demographics + + + | Address | [address] | | | [place] [address] | + + + | Home Phone | | + + + | Preferred Language | Unknown | + + + | Marital Status | | + + + | Uatsdin Affiliation | Unknown | + + + | Race | Unknown | + + + | Ethnic Group | Unknown | + + + Author + + + | Author | [facility] | | | and Amadoana | + + + | Organization | [facility] | | | and [place] [...] | | Kim | | [place] [address] | | + + + + + | Gita Merino | ECON | [address] | | | | | [place], | | | | | [place] [address] | | + + + + + Care Team Providers + +------+ + | Care Heavy Equipment Rental Manager Name | Role | Phone | + +------+ + PCP | Unavailable | + +------+ + Encounter Details +--------+ + + + + | Date | Type | Department | Care Team | Description | +--------+ + + + + | 09/13/ | Hospital | [facility] | Wagner Pollock, | | | 2012 - | Encounter | MED CTR CANCER | [place] [address] | | | | | [place] [address] | [place] | | | 09/[birth year]/ | | [place] | [address] | | | 2012 | | [address] | [phone] | | | | | [phone] | | | +--------+ + + + [...]
--- OUTSIDE RECORDS SUMMARY | ~2019-07-09 | XMS | Encounter Summary ---
Demographics + + + | Address | [address] | | | [place] [address] | + + + | Home Phone | | + + + | Preferred Language | Unknown | + + + | Marital Status | | + + + | Samaritan Affiliation | Unknown | + + + | Race | Unknown | + + + | Ethnic Group | Unknown | + + + Author + + + | Author | [facility] | | | and Amadoana | + + + | Organization | [facility] | | [...] | | Kim | | [place] [address] | | + + + + + | Gita Merino | ECON | [address] | | | | | [place], | | | | | [place] [address] | | + + + + + Care Team Providers + +------+ + | Care Law Enforcement Officer Name | Role | Phone | + +------+ + PCP | Unavailable | + +------+ + Encounter Details +--------+ + + + + | Date | Type | Department | Care Team | Description | +--------+ + + + + | 03/16/ | Hospital | [facility] | Cole Schneider, | | | 2011 | Encounter | MED CTR LABORATORY | [address] | | | | | [address] [place] | [place], [place] | | | | | [place], [place] | [address] | | | | | [address] | [phone] | | | | | [phone] | | | +--------+ + + + [...] Performed At | + + + | [facility] Diagnostic Imaging Department | [facility] | | [address] [facility] | [facility] [place] | | WHOLE BODY 131 SCAN 03/16/2012 [...] Transcribed | | | Date/Time: 03/16/2012 14:13 Community Services Officer: | | | <Electronically Signed by Sinan Baugh MD> 03/16/12 1419 | | + + + + + | Procedure Note | + + | Kristofre, Rad Conversion - 09/30/2013 5:45 PM [facility] | | Diagnostic Imaging Department | | [address] [facility] | | | | | | [...] | Transcribed Date/Time: 03/16/2012 14:13 | | Community Services Officer: | | <Electronically Signed by Sinan Baugh [...]
--- OUTSIDE RECORDS SUMMARY | ~2019-07-09 | XMS | Encounter Summary ---
Demographics + + + | Address | [address] | | | [place] [address] | + + + | Home Phone | | + + + | Preferred Language | Unknown | + + + | Marital Status | | + + + | Presybeterian Affiliation | Unknown | + + + | Race | Unknown | + + + | Ethnic Group | Unknown | + + + Author + + + | Author | [facility] | | | and Amadoana | + + + | Organization | [facility] | | | and [...] | | Kim | | [place] [address] | | + + + + + | Gita Merino | ECON | [address] | | | | | [place], | | | | | [place] [address] | | + + + + + Care Team Providers + +------+ + | Care Storekeeper Engineering Name | Role | Phone | + +------+ + | Emmanuelle Uirbe PA-C | PCP | | + +------+ [...] | | | n | | [address] | | | | | | [address] | [place] | | | | | | Ave | [address] Phone: | | | | | | [place], | [phone] | | | | | | [place] | Fax: | | | | | | [address] | [phone] | | | | | | Phone: | | | | | | | [phone] | | | | | | | Fax: | | | | | | | [phone] | | +--------+--------+ + + + + Encounter Details +--------+---------+ + + + | Date | Type | Department | Care Team | Description | +--------+---------+ + + + | 09/14/ | Office | [facility] | Benjamin Pendleton | Left lumbar | | 2013 | Visit | PHYSIATRY [address] | TMD [address] | radiculitis (Primary | | | | [place], | [place], [place] | Dx); DDD | | | | [place] [address] | [address] | (degenerative disc | | | | [phone] | | disease), lumbar | +--------+---------+ + [...] of the procedure you must provide a furniture delivery driver to take you home. For all [...] has no apparent deficits with short or extermination inspector memory. The cranial nerves appear grossly intact. [...]
--- OUTSIDE RECORDS SUMMARY | ~2019-07-09 | XMS | Encounter Summary ---
Demographics + + + | Address | [address] | | | [place] [address] | + + + | Home Phone [...] Author | [facility] | | | and Amadoana | + + + | Organization | [facility] | | | and [...] | | Kim | | [place] [address] | | + + + + + | Gita Merino | ECON | [address] | | | | | [place], | | | | | [place] [address] | | + + + + + Care Team Providers + +------+ + | Care Narrow Fabrics Weaver Name | Role | Phone | + [...] 2017 | | MED CTR EMERGENCY | [place] [address] | (Primary Dx) | | | | CENTER [address] | [place] | | | | | [place] | [address] | | | | | [address] | | | | | | [phone] | | | +--------+ + + + [...] through Care Everywhere.CELLULITIS, DIS CHARGE INSTRUCTIONS FOR (GABONESE)documented in this encounter Medications at Time of [...]
--- OUTSIDE RECORDS SUMMARY | ~2019-07-09 | XMS | Encounter Summary ---
Demographics + + + | Address | [address] | | | [place] [address] | + + + | Home Phone | | + + + | Preferred Language | Unknown | + + + | Marital Status | | + + + | Protestant Affiliation | Unknown | + + + | Race | Unknown | + + + | Ethnic Group | Unknown | + + + Author + + + | Author | [facility] | | | and Amadoana | + + + | Organization | [facility] | | | and [...] | | Kim | | [place] [address] | | + + + + + | Gita Merino | ECON | [address] | | | | | [place], | | | | | [place] [address] | | + + + + + Care Team Providers + +------+ + | Care Senior Linux Systems Administrator Name | Role | Phone | + +------+ + | Emmanuelle Uribe PA-C | PCP | | + +------+ + Encounter Details +--------+ + + + + | Date | Type | Department | Care Team | Description | +--------+ + + + + | 09/28/ | Hospital | [facility] | Benjamin Pendleton | | | 2013 | Encounter | MED CTR XRAY [address] | T, [address] | | | | | [place] | [place], [place] | | | | | [place] [address] | [address] | | | | | [phone] | | | +--------+ + + + [...] At | + + + | [facility] Diagnostic Imaging | [facility] | | Department [address] [facility] [place] | [facility] | | [ rep [address]] [ rep [facility] | | st zip] Signed | - IMAGING | | | | | Patient Name: MARANDA JOHNSON Physician: | | | : 1980 Age: 33 Sex: F Unit #: [id number] | | | Exam Date: 09/28/13 Location: [facility] | | | Report #: [id number] Page: | | | %(RAD)RES..mtdd.print.filter("pg") of %(RAD) | | | RES..mtdd.print.filter("tpg") | | | | | | Accession Number: [id number] | | | PROCEDURE NOTE LUMBAR TRANSFORAMINAL [...] Transcribed Date/Time: | | | 09/28/2013 19:05 Machine Room Operator: | | | <<Signature on File>> | | | Benjamin Santizo | | | MD Keerthi10/04/13 1816 <Electronically signed by Benjamin Santizo | | | Keerthi CHUN> Benjamin Pendleton MD 09/28/13 4087 | | | Machine Room Operator: SupportBee Zvytpxsexopoc50/05/14 6625 | | | Jere Grayson DO | | + + + + + + + + | Performing | Address | City/State/Zipcode | Phone Number | | Organization | | | | + + + + + | [facility] | [address] | [place] | [phone] | | [facility] | | [address] | | | - IMAGING | | | | + + + + + documented in this encounter Visit Diagnoses Not on filedocumented in this encounter
--- OUTSIDE RECORDS SUMMARY | ~2019-07-09 | XMS | Encounter Summary ---
Demographics + + + | Address | [address] | | | [place] [address] | + + + | Home Phone | | + + + | Preferred Language | Unknown | + + + | Marital Status | | + + + | Jainism Affiliation | Unknown | + + + | Race | Unknown | + + + | Ethnic Group | Unknown | + + + Author + + + | Author | [facility] | | | and Amadoana | + + + | Organization | [facility] | | | and [place] [...] | | Kim | | [place] [address] | | + + + + + | Gita Merino | ECON | [address] | | | | | [place], | | | | | [place] [address] | | + + + + + Care Team Providers + +------+ + | Care Hair And Makeup Designer Name | Role | Phone | + [...] rhinitis, | | 2019 | Visit | [address] | [address] | unspecified | | | | [address] | [place] | seasonality, | | | | [address] [facility] | [facility] [place] [address] | unspecified trigger | | | | [place] [address] | [phone] | (Primary Dx) | | | | [phone] | | | +--------+---------+ + + + [...] the eyes or mouth Date Last Reviewed: 10/22/201619996187-09[address] [employer] [place] [address]. All righ ts reserved. This information is [...] the fingers or toes Date Last Reviewed: 08/24/201619990197-0[address] [employer] [address] [place] [address]. All righ ts reserved. This information is [...] has been changed since signin Order Audit [place] ibuprofen (ADVIL, MOTRIN) 200 mg tablet (Taking) Take 400 mg by mouth Daily as needed. levothyroxine (SYNTHROID) 150 mcg tablet (Taking) levothyroxine (SYNTHROID) 200 mcg tablet (Taking/Discontinued) Take 125 mcg by mouth ever y morning (before breakfast). Number of times this order has been changed since signin Order Audit [place] Past Medical History She has a past [...]
--- OUTSIDE RECORDS SUMMARY | ~2019-07-09 | XMS | Encounter Summary ---
Demographics + + + | Address | [address] | | | [place] [address] | + + + | Home Phone | | + + + | Preferred Language | Unknown | + + + | Marital Status | | + + + | Rastafari Affiliation | Unknown | + + + | Race | Unknown | + + + | Ethnic Group | Unknown | + + + Author + + + | Author | [facility] | | | and Amadoana | + + + | Organization | [facility] | | [...] | | Kim | | [place] [address] | | + + + + + | Gita Merino | ECON | [address] | | | | | [place], | | | | | [place] [address] | | + + + + + Care Team Providers + +------+ + | Care Damper Worker Name | Role | Phone | + +------+ + PCP | Unavailable | + +------+ + Encounter Details +--------+ + + + + | Date | Type | Department | Care Team | Description | +--------+ + + + + | 05/16/ | Hospital | [facility] | Dea Cruz | | | 2012 | Encounter | MED CTR EMERGENCY | DO Dina Head | | | | | CENTER [address] | [place], [place] | | | | | [place], [place] | [address] | | | | | [address] | | | | | | [phone] | | | +--------+ + + + [...]
--- OUTSIDE RECORDS SUMMARY | ~2019-07-09 | XMS | Encounter Summary ---
Demographics + + + | Address | [address] | | | [place] [address] | + + + | Home Phone | | + + + | Preferred Language | Unknown | + + + | Marital Status | | + + + | Yazdanism Affiliation | Unknown | + + + | Race | Unknown | + + + | Ethnic Group | Unknown | + + + Author + + + | Author | [facility] | | | and Amadoana | + + + | Organization | [facility] | | | and [place] [...] | | Kim | | [place] [address] | | + + + + + | Gita Merino | ECON | [address] | | | | | [place], | | | | | [place] [address] | | + + + + + Care Team Providers + +------+ + | Care Clockmaker Name | Role | Phone | + [...] | | rotator | MD Pieter | [facility] | | | | | cuff | [address] | [place], | | | | | | [place] | [place] | | | | | | [place] | [address] | | | | | | [address] | Phone: | | | | | | Phone: | [phone] | | | | | | [phone] | Fax: | | | | | | Fax: | [phone] | | | | | | [phone] | | +--------+ + + + + + Reason for Visit + + + | Reason | Comments | + + + | Shoulder Pain | | + + + Encounter Details +--------+ + + + + | Date | Type | Department | Care Team | Description | +--------+ + + + + | 08/07/ | [facility] | Marco Antonio Harry | Incomplete tear of | | 2017 | | MED CTR EMERGENCY | Baljit Stapleton MD | left rotator cuff | | | | CENTER [address] | [address] | (Primary Dx) | | | | [place] | [place] | | | | | [address] | [address] | | | | | [phone] | | | +--------+ + + + [...] | | | |Dictated and Signed by: bC Arriaza MD | | Electronically signed: 08/07/2018 [...] | | | | 1933, Patient Address: [facility] [address] | | | | | | | [address];[place] [address], | | | | | | + + + + +------+------+ +---+---+ | | | +---+---+ documented in this encounter
--- OUTSIDE RECORDS SUMMARY | ~2019-07-09 | XMS | Encounter Summary ---
Demographics + + + | Address | [address] | | | [place] [address] | + + + | Home Phone | | + + + | Preferred Language | Unknown | + + + | Marital Status | | + + + | Temple Affiliation | Unknown | + + + | Race | Unknown | + + + | Ethnic Group | Unknown | + + + Author + + + | Author | [facility] | | | and Amadoana | + + + | Organization | [facility] | | | and [...] | | Kim | | [place] [address] | | + + + + + | Gita Merino | ECON | [address] | | | | | [place], | | | | | [place] [address] | | + + + + + Care Team Providers + +------+ + | Care Manager Demand Name | Role | Phone | + +------+ + PCP | Unavailable | + +------+ + Encounter Details +--------+ + + + + | Date | Type | Department | Care Team | Description | +--------+ + + + + | 04/01/ | Hospital | [facility] | Wagner Pollock, | | | 2013 | Encounter | MED CTR CANCER | [place] [address] | | | | | [place] [address] | [place], [place] | | | | | [place], [place] | [address] | | | | | [address] | [phone] | | | | | [phone] | | | +--------+ + + + [...]
--- OUTSIDE RECORDS SUMMARY | ~2019-07-09 | XMS | Encounter Summary ---
Demographics + + + | Address | [address] | | | [place] [address] | + + + | Home Phone | | + + + | Preferred Language | Unknown | + + + | Marital Status | | + + + | Islam Affiliation | Unknown | + + + | Race | Unknown | + + + | Ethnic Group | Unknown | + + + Author + + + | Author | [facility] | | | and Amadoana | + + + | Organization | [facility] [...] | | Kim | | [place] [address] | | + + + + + | Gita Merino | ECON | [address] | | | | | [place], | | | | | [place] [address] | | + + + + + Care Team Providers + +------+ + | Care Cell Pourer Name | Role | Phone | + +------+ + PCP | Unavailable | + +------+ + Encounter Details +--------+ + + + + | Date | Type | Department | Care Team | Description | +--------+ + + + + | 06/29/ | Hospital | [facility] | Wagner Pollock, | | | 2011 - | Encounter | MED CTR CANCER | [place] [address] | | | | | [place] [address] | [place] | | | 07/23/ | | [place] | [address] | | | 2011 | | [address] | [phone] | | | | | [phone] | | | +--------+ + + + [...] [facility] | | | Peroxidase | Performed: [place] | IU/mL | . CYNTHIA | | | Antibody | [facility] | | MEDICAL | | | | [place], [facility] [address] , | | [place] - | | | | [place] [address] | | LABORATORY | | | | CLIA: [id number] | | | | + + + + + + + + | Specimen | + + | | + + + + + + + | Performing | Address | City/State/Zipcode | Phone Number | | Organization | | | | + + + + + | [facility] | [address] | [place] | [phone] | | [facility] | | [address] | | | - LABORATORY | | | | + + + + + | [facility] | [address] | [place] | | | [facility] | | [address] | | | - LABORATORY | | [...] | | | in Ab | Performed: [place] | IU/mL | [facility] | | | | [facility] | | MEDICAL | | | | [place], [facility] [address], | | [place] - | | | | [place] [address] | | LABORATORY | | | | CLIA: [id number] | | | | + + + + + + | Thyroglobul | 0.1 (L)Comment: Testing | 1.2 - 35.0 | [facility] | | | in | Performed: [place] | ng/mL | [facility] | | | | [facility] | | MEDICAL | | | | [place], [address], | | [place] - | | | | [place] [address] | | LABORATORY | | | | CLIA: [id number] | | | | + + + + + + + + | Specimen | + + | | + + + + + + + | Performing | Address | City/State/Zipcode | Phone Number | | Organization | | | | + + + + + | [facility] | [address] | [place] | [phone] | | [facility] | | [address] | | | - LABORATORY | | | | + + + + + | [facility] | [address] | [place] | | | [facility] | | [address] | | | - LABORATORY | | [...] Testing performed on the | uIU/mL | [facility] | | | | Trey Nisha Access [...] + | [facility] | [address] | [place], [place] | [phone] | | [facility] | | [address] | | | - LABORATORY | | | | + + + + + | [facility] | [address] | [place] | | | [facility] | | [address] | | | - LABORATORY | | | | + + + + + documented in this encounter Visit Diagnoses Not on filedocumented in this encounter"
--- OUTSIDE RECORDS SUMMARY | ~2019-07-09 | XMS | Clinical Summary ---
Demographics + + + | Address | [address] | | | [place] [address] | + + + | Home Phone | | + + + | Preferred Language | Unknown | + + + | Marital Status | | + + + | Advent Affiliation | Unknown | + + + | Race | Unknown | + + + | Ethnic Group | Unknown | + + + Author + + + | Author | [facility] | | | and Amadoana | + + + | Organization | [facility] | [...] | | Kim | | [place] [address] | | + + + + + | Gita Merino | ECON | [address] | | | | | [place], | | | | | [place] [address] | | + + + + + Care Team Providers + +------+ + | Care Child Life Therapist Name | Role | Phone | + [...] recent travel history available. | + + Last Filed Vital Signs + [...] +-------+--------+ +--------+-------+---------+------+ | BCBS | BCBS | [id number] | 07/10/ | | | PPO | [...] Self | [birth year] | [address] | | | al/Fam | | 1980 | [phone] | [place] [address] | | | cesar | | | 2 (Home) | | + +--------+ +--------+ + + Advance Directives + + + + + | Type | Date Recorded | Patient | Explanation | | | | Morale Officer | | + + + + + | Power of | | | | | Business Reporting Developer | | | | + + + + + | Advance | | | | | Directive | | | | + + + + +
--- OUTSIDE RECORDS SUMMARY | ~2019-07-09 | XMS | Clinical Summary ---
Demographics + + + | Address | [address] | | | [place] [address] | + + + | Home Phone [...] + | Author | [facility] | | | and Amadoana | + + + | Organization | [facility] | | [...] | | Kim | | [place] [address] | | + + + + + | Gita Merino | ECON | [address] | | | | | [place], | | | | | [place] [address] | | + + + + + Care Team Providers + +------+ + | Care Allergist Name | Role | Phone | + [...] 03/0 | | Activ | | (TESMAXI JUARZE) | mouth 3 times daily | capsule [...] +-------+--------+ +--------+-------+---------+------+ | BCBS | BCBS | [id number] | 07/10/ | | | PPO | [...] | 1980 | [phone] | [place] [address] | | | [place] | | | 2 (Home) | | + +--------+ +--------+ + + Advance Directives + + + + + | Type | Date Recorded | Patient | Explanation | | | | Lens Cleaner | | + + + + + | Power of | | | | | Currency Counter | | | | + + + + + | Advance | | | | | Directive | | | | + + + + +
--- OUTSIDE RECORDS SUMMARY | ~2019-07-09 | XMS | Encounter Summary ---
Demographics + + + | Address | [address] | | | [place] [address] | + + + | Home Phone | | + + + | Preferred Language | Unknown | + + + | Marital Status | | + + + | Mormon Affiliation | Unknown | + + + | Race | Unknown | + + + | Ethnic Group | Unknown | + + + Author + + + | Author | [facility] | | | and Amadoana | + + + | Organization | [facility] | | | and [place] [...] | | Kim | | [place] [address] | | + + + + + | Gita Merino | ECON | [address] | | | | | [place], | | | | | [place] [address] | | + + + + + Care Team Providers + +------+ + | Care Sap Business Analyst Name | Role | Phone | + +------+ + PCP | Unavailable | + +------+ + Encounter Details +--------+ + + + + | Date | Type | Department | Care Team | Description | +--------+ + + + + | 10/06/ | Hospital | [facility] | Wagner Pollock, | | | 2012 - | Encounter | MED CTR XRAY [address] | MD [address] | | | | | [place] | [place], [place] | | | 10/08/ | | [place] [address] | [address] | | | 2012 | | [phone] | [phone] | | | | | | | [...] Performed At | + + + | [facility] Diagnostic Imaging | [facility] | | Department [address], [place] | [facility] | | [ rep ct [address]] [ rep ct [facility] | | st zip] Signed | - IMAGING | | | | | Patient Name: MARANDA JOHNSON Physician: | | | JAYANTT.[id number] : 1980 Age: 32 Sex: F Unit #: [id number] | | | Exam Date: 10/06/12 Location: [facility] | | | Report #: [id number] Page: | | | %(RAD)RES..mtdd.print.filter("pg") of %(RAD) | | | RES..mtdd.print.filter("tpg") | | | | | | Accession Number: [id number] | | | WHOLE BODY I-131 SCAN, [...] Transcribed | | | Date/Time: 10/08/2012 11:34 Continuous Mining Machine Coal Miner: | | | <<Signature on File>> | | | | | | Vic Barker MD10/08/12 1213 <Electronically signed by | | | Vic Barker MD> Vic Barker MD 10/08/12 | | | 1118 Continuous Mining Machine Coal Miner: Fixed - Parking Tickets Nvhponpfviecq30/15/13 1134 | | | Wagner Pollock MD | | + + + + + + + + | Performing | Address | City/State/Zipcode | Phone Number | | Organization | | | | + + + + + | [facility] | [address] | [place] | [phone] | | [facility] | | [address] | | | - IMAGING | | | | + + + + + documented in this encounter Visit Diagnoses Not on filedocumented in this encounter
[~2019-07-09 09:01] MED LIST changes: +CLINDAMYCIN HC300 MG PO; +COLCHICINE0.6 M1 PO; +IBUPROFEN400 MG PO; +IBUPROFEN600 MG PO; +LEVOTHYROXINE150 MCG PO; +PANTOPRAZOLE SO40 MG PO; +XANAX0.5 MG PO
[2019-07-09] MEDS ORDERED: ULTRAM50 MG PO (12:05)
== END 2019-07-09 12:24 | disposition home or self-care (01) ==
LOC: ED 09:01
DX: K63.89 Other specified diseases of intestine (principal); Z88.8 Allergy status to other drugs, medicaments and biological substances; Z79.899 Other long term (current) drug therapy
CPT/HCPCS: 74177; 80053; 81001; 83690; 84703; 85025; 96361; 99284-25; J1885; J2270; J2405; J7030; Q9967

== ENCOUNTER 2020-03-17 16:32 | Emergency (ER) | payer BC ==
[~2020-03-17] VITALS: Ht 170.2 cm; Wt 149.7 kg
--- OUTSIDE RECORDS SUMMARY | ~2020-03-17 | XMS | Encounter Summary ---
Demographics + + + | Address | [address] | | | [place] [address] | + + + | Home Phone | | + + + | Preferred Language | Unknown | + + + | Marital Status | | + + + | Jainism Affiliation | Unknown | + + + | Race | Unknown | + + + | Ethnic Group | Unknown | + + + Author + + + | Author | [facility] | | | and Amadoana | + + + | Organization | [facility] | | | and [place] [...] | | Kim | | [place] [address] | | + + + + + | Gita Merino | ECON | [address] | | | | | [place], | | | | | [place] [address] | | + + + + + Care Team Providers + +------+ + | Care Explosive Ordnance Manager Name | Role | Phone | + +------+ + PCP | Unavailable | + +------+ + Encounter Details +--------+ + + + + | Date | Type | Department | Care Team | Description | +--------+ + + + + | 03/10/ | Hospital | [facility] | Phill Wagner Saqib, | | | 2011 | Encounter | MED CTR XRAY [address] | MD [address] | | | | | [place] | [place], [place] | | | | | [place] [address] | [address] | | | | | [phone] | [phone] | | | | | | | [...] on file | | + + + documented as of this encounter Plan of Treatment Not on filedocumented as of this encounter Visit Diagnoses Not on filedocumented in this encounter"
--- OUTSIDE RECORDS SUMMARY | ~2020-03-17 | XMS | Encounter Summary ---
Demographics + + + | Address | [address] | | | [place] [address] | + + + | Home Phone | | + + + | Preferred Language | Unknown | + + + | Marital Status | | + + + | Muslim Affiliation | Unknown | + + + | Race | Unknown | + + + | Ethnic Group | Unknown | + + + Author + + + | Author | [facility] | | | and [place] | + + + | Organization | [facility] | | | and [place] [...] | | Kim | | [place] [address] | | + + + + + | Gita Merino | ECON | [address] | | | | | [place], | | | | | [place] [address] | | + + + + + Care Team Providers + +------+ + | Care Welt Slasher Name | Role | Phone | + +------+ + | Kajal Hernandez | PCP | | | MD | | | + +------+ + Reason for Visit +--------+ + | Reason | Comments | +--------+ + | Lump | | +--------+ + Encounter Details +--------+ + + + + | Date | Type | Department | Care Team | Description | +--------+ + + + + | 02/28/ | Emergency | [facility] | Anderson Ochoa, | Cellulitis of breast | | 2017 | | MED CTR EMERGENCY | [place] [address] | (Primary Dx) | | | | CENTER [address] | [place] | | | | | [place] | [address] | | | | | [address] | | | | | | [phone] | | | +--------+ + + + + Social History + +-------+ +--------+------+ | Tobacco Use | Types | Packs/Day | Years | Date | | | | | Used | | + +-------+ +--------+------+ | Never Smoker | | | | | + +-------+ +--------+------+ + + +---------+ + | Alcohol Use | Drinks/Week | oz/Week | Comments | + + +---------+ + | No | | | | + + +---------+ + + + + | Sex Assigned at | Date Recorded | | | | + + + | Not on file | | + + + documented as of this encounter Last Filed Vital Signs + + + + + | Vital Sign | Reading | Time Taken | Comments | + + + + + | Blood Pressure | 137/80 | 02/28/2017 5:15 PM | | | | | PDT | | + + + + + | Pulse | 96 | 02/28/2017 5:15 PM | | | | | PDT | | + + + + + | Temperature | 36.9 C (98.4 F) | 02/28/2017 5:08 PM | | | | | PDT | | + + + + + | Respiratory Rate | 16 | 02/28/2017 5:08 PM | | | | | PDT | | + + + + + | Oxygen Saturation | 98% | 02/28/2017 5:15 PM | | | | | PDT | | + + + + + | Inhaled Oxygen | - | - | | | Concentration | | | | + + + + + | Weight | 149.7 kg (330 lb) | 02/28/2017 5:08 PM | | | | | PDT | | + + + + + | Height | 170.2 cm (5' 7") | 02/28/2017 5:08 PM | | | | | PDT | | + + + + + | Body Mass Index | 51.69 | 02/28/2017 5:08 PM | | | | | PDT | | + + + + + documented in this encounter Discharge Instructions AttachmentsThe following attachments cannot be sent through Care Everywhere.CELLULITIS, DIS CHARGE INSTRUCTIONS FOR (ICELANDIC)documented in this encounter Medications at Time of Discharge + + + +---------+ + + | Medication | Sig | Dispensed | Refills | Start | End Date | | | | | | Date | | + + + +---------+ + + | cholestyramine | Take 4 g by mouth | | 0 | | | | light (QUESTRAN) 4 g | Daily. | | | | | | packet | | | | | | + + + +---------+ + + | ibuprofen (ADVIL, | Take 400 mg by mouth | | 0 | | | | MOTRIN) 200 mg | Daily as needed. | | | | | | tablet | | | | | | + + + +---------+ + + | cephalexin | Take 1 capsule by | 21 | 0 | 02/29/20 | | | (KEFLEX) 500 mg | mouth 3 times daily | capsule | | 17 | 7 | | capsule | for 7 days. | | | | | + + + +---------+ + + | levothyroxine | Take 125 mcg by | | 0 | | | | (SYNTHROID) 200 mcg | mouth every morning | | | | 9 | | tablet | (before breakfast). | | | | | + + + +---------+ + + | liothyronine | Take 5 mcg by mouth | | 0 | | | | (CYTOMEL) 5 mcg | Daily. | | | | 8 | | tablet | | | | | | + + + +---------+ + + | | Take 1 tablet by | 14 | 0 | 02/29/20 | | | sulfamethoxazole-tri | mouth 2 times daily | tablet | | 17 | 7 | | methoprim (BACTRIM | for 7 days. | | | | | | DS) 800-160 mg per | | | | | | | tablet | | | | | | + + + +---------+ + + documented as of this encounter ED Notes Anderson Ochoa MD - 02/28/2017 5:21 PM PDTFormatting of this note might be different fro m the original. eMERGENCY dEPARTMENT eNCOUnter CHIEF COMPLAINT Chief Complaint Patient presents with Lump HPI Supriya Alvarez is a 36 y.o. female who presents with some redness and pain on her right l ateral breast. She states is been there for the last couple of days and seems like it getti ng bigger. She's had no fever or cough. No vomiting or diarrhea. No history of MRSA. She has not had anything like this in the past. PAST MEDICAL HISTORY Past Medical History: Diagnosis Date Cancer (HCC) DDD (degenerative disc disease), lumbar 09/16/2013 Left lumbar radiculitis 09/16/2013 Thyroid disease SURGICAL HISTORY Past Surgical History: Procedure Laterality Date SECTION CHOLECYSTECTOMY kidney stent 2005,2007,2009 3 kidney stents placed [facility]IL[facility]OM[facility] TUBAL LIGATION CURRENT MEDICATIONS Previous Medications CHOLESTYRAMINE LIGHT (QUESTRAN) 4 G PACKET Take 4 g by mouth. IBUPROFEN (ADVIL, MOTRIN) 200 MG TABLET Take 400 mg by mouth Daily as needed. LEVOTHYROXINE (SYNTHROID) 200 MCG TABLET Take 224 mcg by mouth every morning (before br eakfast). LIOTHYRONINE (CYTOMEL) 5 MCG TABLET Take 5 mcg by mouth Daily. ALLERGIES Allergies Allergen Reactions Gabapentin Swelling Metronidazole Rash FAMILY HISTORY Family History Problem Relation Age of Onset Stroke Paternal Aunt Stroke Paternal Uncle Heart disease Maternal Grandmother Heart disease Maternal Grandfather Cancer Paternal Grandmother SOCIAL HISTORY Social History Social History Marital status: Spouse name: N/A Number of children: N/A Years of education: N/A Social History Main Topics Smoking status: Never Smoker Smokeless tobacco: None Alcohol use No Drug use: No Sexual activity: Not Asked Other Topics Concern None Social History Narrative None REVIEW OF SYSTEMS All systems reviewed and negative except as noted on HPI and/or limited by patient conditio n PHYSICAL EXAM VITAL SIGNS: Temp: 36.9 C (98.4 F) Pulse: 98 Resp: 16 SpO2: 100 % BP: 147/85 Constitutional: Well developed, Well nourished, No acute distress, Non-toxic appearance. HENT: Normocephalic, Atraumatic, Oropharynx moist, No oral exudates, Nose normal. Neck- No rmal range of motion, No tenderness, Supple, No stridor. Eyes: PERRL, EOMI, Conjunctiva normal, No discharge. Respiratory: Normal breath sounds, No wheezing, No chest tenderness. Cardiovascular: Normal S1, S2 GI: nondistended : not done Musculoskeletal: Intact distal pulses, No edema ,Integument: Warm, Dry, No erythema, the base of her right breast she has a silver dollar sized area of erythema that I suspect is probably the start of an early abscess and cellulit is, there is no palpable or drainable fluid at this time EKG Not done RADIOLOGY No results found. ED COURSE & MEDICAL DECISION MAKING Last Set of Vital Signs: Temp: 36.9 C (98.4 F) Pulse: 98 Resp: 16 SpO2: 100 % BP: 147/8 5 Pertinent Labs, Nurses Note, & Imaging studies reviewed. (See chart for details) 36 -year-old female with right breast cellulitis. She is put on Bactrim and Keflex. She i s encouraged to use warm compresses if he continues to worsen and enlarged come back to the ER for repeat evaluation for possible I&D. She is comfortable with this plan. FINAL IMPRESSION Right breast cellulitis LABS FROM THIS VISIT OR MOST RECENT ER VISIT: Results for orders placed or performed during the hospital encounter of 10/08/12 TSH Result Value Ref Range TSH 134.16 (H) 0.34 - 5.60 uIU/mL Thyroglobulin / Thyroglobulin Antibody Result Value Ref Range Thyroglobulin Ab <0.9 0.0 - 4.0 IU/mL Thyroglobulin <0.1 (L) 1.2 - 35.0 ng/mL Anderson Ochoa MD 02/28/17 4045 documented in this en counter Miscellaneous Notes ED Triage Notes - Elsa Puente RN - 02/28/2017 5:07 PM PDTPatient reports lump o n lateral aspect of right breast, first noticed on February 24, and growing since then. Report s it is painful 03/02, hard, red, and hot to the touch. Denies any fevers.Electronically sig eddie by Elsa Puente RN at 02/28/2017 5:08 PM PDTdocumented in this encounter Plan of Treatment Not on filedocumented as of this encounter Visit Diagnoses + + | Diagnosis | + + | Cellulitis of breast - Primary Inflammatory disease of breast | + + documented in this encounter
--- OUTSIDE RECORDS SUMMARY | ~2020-03-17 | XMS | Encounter Summary ---
Demographics + + + | Address | [address] | | | [place] [address] | + + + | Home Phone | | + + + | Preferred Language | Unknown | + + + | Marital Status | | + + + | Latter Day Affiliation | Unknown | + + + | Race | Unknown | + + + | Ethnic Group | Unknown | + + + Author + + + | Author | [facility] | | | and [place] | + + + | Organization | [facility] | | | and [place] [...] | | Kim | | [place] [address] | | + + + + + | Gita Merino | ECON | [address] | | | | | [place], | | | | | [place] [address] | | + + + + + Care Team Providers + +------+ + | Care Blood Bank Worker Name | Role | Phone | + +------+ + PCP | Unavailable | + +------+ + Encounter Details +--------+ + + + + | Date | Type | Department | Care Team | Description | +--------+ + + + + | 05/16/ | Hospital | [facility] | Dea Cruz | | | 2012 | Encounter | MED CTR EMERGENCY | DO [place] | | | | | CENTER [address] | [place], [place] | | | | | [place], [place] | [address] | | | | | [address] | | | | | | [phone] | | | +--------+ + + + [...] encounter ED Notes Anderson Ochoa MD - 05/16/2013 6:28 [place] [address] Patient Name: SUPRIYA JOHNSON Provider: Unit #: [id number] Location: : 1980 DATE: 05/16/2013 CHIEF COMPLAINT: Low back pain. HISTORY OF PRESENT ILLNESS: Supriya is a 32-year-old female who is a [id number] mom said she has 6 kids. She has been caring for them by herself for the last couple days since her recently had surgery. She said she has chronic low back pain, but much worse for t he last few days. It radiates down her left leg. She had no nausea, no vomiting, no diarrhe a, no fever, cough, chills, sweats, or other associated symptoms. No bowel or bladder incon tinence. No paresthesias or weakness. PAST MEDICAL HISTORY: Significant for thyroid cancer, chronic back pain. SOCIAL HISTORY: Does not smoke. REVIEW OF SYSTEMS All systems reviewed were negative except as noted in HPI. PHYSICAL EXAMINATION GENERAL: This is a 32-year-old female in no apparent distress. INITIAL VITAL SIGNS: BP 155/99, pulse 77, respirations 16, temperature 98.0, saturation 10 0% on room air. HEENT: Pupils equally round and reactive to light. Mucous membranes are moist. Nasal passa ges clear. Trachea is midline. CHEST: Lungs are clear to auscultation bilaterally. No rales, no wheezes. CARDIOVASCULAR: Rate and rhythm is regular. ABDOMEN: Nontender, nondistended. EXTREMITIES: No edema. SKIN: No rash. NEUROLOGIC: Strength is 5/5 in both lower extremities. Reflexes were 1+ and symmetric thro ughout. ASSESSMENT: This is a 32-year-old female with a LUMBAR STRAIN. She was given a couple of [place] and Flexeril. Told to followup with her doctor back in [facility], come back if she gets worse or any other problems. She has no evidence of cauda equina syndrome. DICTATED BY: Anderson Ochoa M.D. Emergency Medicine JOB #: [id number] EXT JOB #:[id number] <<Signature on File>> Anderson Ochoa MD0 05/17/132055 <Electronically signed by Anderson Ochoa MD> documented in this encounter Plan of Treatment Not on filedocumented as of this encounter Visit Diagnoses Not on filedocumented in this encounter"
--- OUTSIDE RECORDS SUMMARY | ~2020-03-17 | XMS | Encounter Summary ---
Demographics + + + | Address | [address] | | | [place] [address] | + + + | Home Phone | | + + + | Preferred Language | Unknown | + + + | Marital Status | | + + + | Scientology Affiliation | Unknown | + + + | Race | Unknown | + + + | Ethnic Group | Unknown | + + + Author + + + | Author | [facility] | | | and [place] | + + + | Organization | [facility] | | | [...] | | Kim | | [place] [address] | | + + + + + | Gita Merino | ECON | [address] | | | | | [place], | | | | | [place] [address] | | + + + + + Care Team Providers + +------+ + | Care Fence Manufacture Supervisor Name | Role | Phone | + +------+ + PCP | Unavailable | + +------+ + Encounter Details +--------+ + + + + | Date | Type | Department | Care Team | Description | +--------+ + + + + | 03/10/ | Hospital | [facility] | Britta Pollockncer Saqib, | | | 2011 - | Encounter | MED CTR MEDICAL | [address] | | | | | [address] [place] | [place] | | | 03/11/ | | [place] [address] | [address] | | | 2011 | | [phone] | [phone] | | | | | | | [...] Wagner Pollock MD Radiation Oncology JOB #: [id number] EXT JOB #:[id number] <Electronicall y Signed by Wagner Pollock MD> 03/25/121952 documented in this encounter Plan of Treatment Not on filedocumented as of this encounter Visit Diagnoses Not on filedocumented in this encounter"
--- OUTSIDE RECORDS SUMMARY | ~2020-03-17 | XMS | Encounter Summary ---
Demographics + + + | Address | [address] | | | [place] [address] | + + + | Home Phone | | + + + | Preferred Language | Unknown | + + + | Marital Status | | + + + | Rastafarian Affiliation | Unknown | + + + | Race | Unknown | + + + | Ethnic Group | Unknown | + + + Author + + + | Author | [facility] | | | and [place] | + + + | Organization | [facility] | | | and [...] | | Kim | | [place] [address] | | + + + + + | Gita Merino | ECON | [address] | | | | | [place], | | | | | [place] [address] | | + + + + + Care Team Providers + +------+ + | Care Milling Machinist Name | Role | Phone | + +------+ + PCP | Unavailable | + +------+ + Encounter Details +--------+ + + + + | Date | Type | Department | Care Team | Description | +--------+ + + + + | 03/16/ | Hospital | [facility] | Cole Schneider, | | | 2011 | Encounter | MED CTR LABORATORY | [address] | | | | | [address] [place] | [place], [place] | | | | | [place], [place] | [address] | | | | | [address] | [phone] | | | | | [phone] | | | +--------+ + + + [...] | + +--------+ + + + | NM THYROID CANCER | | 03/16/2012 | | Results for this | | METASTATIC SCAN | | 9:16 AM | | procedure are in the | | WHOLE BODY W UPTAKE | | PDT | | results section. 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 TECHNIQUE: Whole body imaging was | | | performed at 6 days post ablation after administration of 46.8 mCi | | | of I-131. FINDINGS: The patient is status post thyroid | | | resection. There are at least three discrete foci of iodine tracer | | | uptake in the neck. Findings are consistent with brenda recurrence | | | in the neck. No distant accumulation of the Iodine tracer is seen. | | | There is normal bladder excretion. IMPRESSION: 1. FOCI OF | | | IODINE ACCUMULATION WITHIN THE NECK AND/OR UPPER MEDIASTINUM | | | CONSISTENT WITH BRENDA RECURRENCE. COMMENT: FINDINGS DISCUSSED | | | WITH DR COLE SCHNEIDER. ANATOMIC IMAGING WITH CONTRAST NECK MRI IS | | | SUGGESTED. Dictated Date/Time: 03/16/2012 12:24 Transcribed | | | Date/Time: 03/16/2012 14:13 Residency Coordinator: | | | <Electronically Signed by Sinan Baugh MD> 03/16/12 1419 | | + + + + + | Procedure Note | + + | Kristofer, Rad Conversion - 09/30/2013 5:45 PM [facility] | | Diagnostic Imaging Department | | [address] | | | | | | | | WHOLE BODY 131 SCAN 03/16/2012 | | | | CLINICAL HISTORY: POST THYROID RESECTION AND ABLATION FOR MICROPAPILLARY | | CARCINOMA. | | | | TECHNIQUE: Whole body imaging was performed at 6 days post ablation after | | administration of 46.8 mCi of I-131. | | | | FINDINGS: The patient is status post thyroid resection. There are at least | | three discrete foci of iodine tracer uptake in the neck. Findings are | | consistent with brenda recurrence in the neck. No distant accumulation of the | | Iodine tracer is seen. There is normal bladder excretion. | | | | IMPRESSION: | | 1. FOCI OF IODINE ACCUMULATION WITHIN THE NECK AND/OR UPPER MEDIASTINUM | | CONSISTENT WITH BRENDA RECURRENCE. | | | | COMMENT: FINDINGS DISCUSSED WITH DR COLE SCHNEIDER. ANATOMIC IMAGING WITH | | CONTRAST NECK MRI IS SUGGESTED. | | | | Dictated Date/Time: 03/16/2012 12:24 | | Transcribed Date/Time: 03/16/2012 14:13 | | Residency Coordinator: | | <Electronically Signed by Sinan Baugh MD> 03/16/12 1419 | + + + +---------+ + + | Performing | Address | City/State[facility] | Phone Number | | Organization | | | | + +---------+ + + | [place] | | | | | [place] | | | | + +---------+ + + documented in this encounter Visit Diagnoses Not on filedocumented in this encounter"
--- OUTSIDE RECORDS SUMMARY | ~2020-03-17 | XMS | Encounter Summary ---
Demographics + + + | Address | [address] | | | [place] [address] | + + + | Home Phone | | + + + | Preferred Language | Unknown | + + + | Marital Status | | + + + | Worship Affiliation | Unknown | + + + | Race | Unknown | + + + | Ethnic Group | Unknown | + + + Author + + + | Author | [facility] | | | and [place] | + + + | Organization | [facility] | | | and [place] [...] | | Kim | | [place] [address] | | + + + + + | Gita Merino | ECON | [address] | | | | | [place], | | | | | [place] [address] | | + + + + + Care Team Providers + +------+ + | Care Hydramatic Specialist Name | Role | Phone | + +------+ + PCP | Unavailable | + +------+ + Encounter Details +--------+ + + + + | Date | Type | Department | Care Team | Description | +--------+ + + + + | 09/13/ | Hospital | [facility] | Wagner Pollock, | | | 2012 - | Encounter | MED CTR CANCER | [place] [address] | | | | | [place] [address] | [place] | | | 09/23/ | | [place] | [address] | | | 2012 | | [address] | [phone] | | | | | [phone] | | | +--------+ + + + [...]
--- OUTSIDE RECORDS SUMMARY | ~2020-03-17 | XMS | Encounter Summary ---
Demographics + + + | Address | [address] | | | [place] [address] | + + + | Home Phone | | + + + | Preferred Language | Unknown | + + + | Marital Status | | + + + | Spiritism Affiliation | Unknown | + + + | Race | Unknown | + + + | Ethnic Group | Unknown | + + + Author + + + | Author | [facility] | | | and [place] | + + + | Organization | [facility] | | | and [place] | + + + | Address | Unknown | + + + | Phone | Unavailable | + + + Support + + + + + | Name | Relationship | Address | Phone | + + + + + | Ulisses Barecnas | ECON | [address] | | | [place] | | [place] [address] | | + + + + + | Gita Merino | ECON | [address] | | | | | [place], | | | | | [place] [address] | | + + + + + Care Team Providers + +------+ + | Care Pulmonary Disease Specialist Name | Role | Phone | + +------+ + PCP | Unavailable | + +------+ + Encounter Details +--------+ + + + + | Date | Type | Department | Care Team | Description | +--------+ + + + + | 07/27/ | Hospital | [facility] | | | | 2000 | Encounter | MED CTR EMERGENCY | | | | | | CENTER [address] | | | | | | [place], [place] | | | | | | [address] | | | | | | [phone] | | | +--------+ + + + [...]
--- OUTSIDE RECORDS SUMMARY | ~2020-03-17 | XMS | Encounter Summary ---
Demographics + + + | Address | [address] | | | [place] [address] | + + + | Home Phone | | + + + | Preferred Language | Unknown | + + + | Marital Status | | + + + | Mormonism Affiliation | Unknown | + + + | Race | Unknown | + + + | Ethnic Group | Unknown | + + + Author + + + | Author | [facility] | | | and [place] | + + + | Organization | [facility] | | | and [place] [...] | | Kim | | [place] [address] | | + + + + + | Gita Merino | ECON | [address] | | | | | [place], | | | | | [place] [address] | | + + + + + Care Team Providers + +------+ + | Care Customer Care Assistant Name | Role | Phone | + +------+ + PCP | Unavailable | + +------+ + Encounter Details +--------+ + + + + | Date | Type | Department | Care Team | Description | +--------+ + + + + | 04/01/ | Hospital | [facility] | Wagner Pollock, | | | 2013 | Encounter | MED CTR CANCER | [place] [address] | | | | | [place] [address] | [place], [place] | | | | | [place], [place] | [address] | | | | | [address] | [phone] | | | | | [phone] | | | +--------+ + + + [...]
--- OUTSIDE RECORDS SUMMARY | ~2020-03-17 | XMS | Encounter Summary ---
Demographics + + + | Address | [address] | | | [place] [address] | + + + | Home Phone | | + + + | Preferred Language | Unknown | + + + | Marital Status | | + + + | Catholic Affiliation | Unknown | + + + | Race | Unknown | + + + | Ethnic Group | Unknown | + + + Author + + + | Author | [facility] | | | and [place] | + + + | Organization | [facility] | | | and [...] | | Kim | | [place] [address] | | + + + + + | Gita Merino | ECON | [address] | | | | | [place], | | | | | [place] [address] | | + + + + + Care Team Providers + +------+ + | Care Miniature Set Builder Name | Role | Phone | + +------+ + | Kajal Hernandez | PCP | | | MD | | | + +------+ + Reason for Referral Evaluate & Treat (Routine) +--------+ + + + + + | Status | Reason | Specialty | Diagnoses / | Referred By | Referred To | | | | | Procedures | Contact | Contact | +--------+ + + + + + | Closed | Specialty | Orthopedic | Diagnoses | Harry, | [facility] | | | Services | Surgery | Incomplete | Marco Antonio | Orthopedic | | | Required | | tear of left | Edward | Surgery [address] | | | | | rotator | MD Pieter | [address] | | | | | cuff | [address] | [place], | | | | | | [place] | [place] [address] | | | | | | [place] | Phone: | | | | | | [address] | [phone] | | | | | | Phone: | Fax: | | | | | | [phone] | [phone] | | | | | | Fax: | | | | | | | [phone] | | +--------+ + + + + + Reason for Visit + + + | Reason | Comments | + + + | Shoulder Pain | | + + + Encounter Details +--------+ + + + + | Date | Type | Department | Care Team | Description | +--------+ + + + + | 08/07/ | Emergency | [facility] | Marco Antonio Harry | Incomplete tear of | | 2018 | | [facility] | Baljit Stapleton MD | left rotator cuff | | | | CENTER [address] | [address] | (Primary Dx) | | | | [place] | [place] | | | | | [address] | [address] | | | | | [phone] | | | +--------+ + + + [...] | | | + +---+---+---+ + + +---------+ + | Alcohol Use [...] + + + | Blood Pressure | 125/68 | 08/07/2018 7:32 PM | | | | | PST | | + + + + + | Pulse | 81 | 08/07/2018 7:32 PM | | | | | PST | | + + + + + | Temperature | 37 C (98.6 F) | 08/07/2018 5:36 PM | | | | | PST | | + + + + + | Respiratory Rate | 16 | 08/07/2018 7:32 PM | | | | | PST | | + + + + + | Oxygen Saturation | 98% | 08/07/2018 7:32 PM | | | | | PST | | + + + + + | Inhaled Oxygen | - | - | | | Concentration | | | | + + + + + | Weight | 145.2 kg (320 lb) | 08/07/2018 5:36 PM | | | | | PST | | + + + + + | Height | 170.2 cm (5' 7") | 08/07/2018 5:36 PM | | | | | PST | | + + + + + | Body Mass Index | 50.12 | 08/07/2018 5:36 PM | | | | | PST | | + + + + + documented in this encounter Discharge Instructions Instructions Marco Antonio Harry MD - 08/07/2018Return for severe worsening sympto ms. Please follow-up in orthopedic clinic. Do icing to your shoulder. Take pain medicatio n as needed. Please return for severe worsening ongoing shoulder pain weakness or other wor sening symptoms. Ultimately need to be seen in orthopedic clinic and have further follow-up . documented in this encounter Medications at Time of [...] + + +---------+ + + | ibuprofen | Take 1 tablet by | 30 | 0 | 08/07/20 | | | (ADVIL,MOTRIN) 600 | mouth every 6 hours | tablet | | 18 | 9 | | MG tablet | as needed for Pain. | | | | | + + + +---------+ + + | levothyroxine | Take 125 mcg by | | 0 | | | | (SYNTHROID) 200 mcg | mouth every morning | | | | 9 | | tablet | (before breakfast). | | | | | + + + +---------+ + + | | Take 1 tablet by | 20 | 0 | 08/07/20 | | | oxyCODONE-acetaminop | mouth every 6 hours | tablet | | 18 | 9 | | hen (PERCOCET) 5-325 | as needed. | | | | | | mg per tablet | | | | | | + + + +---------+ + + documented as of this encounter ED Notes Marco Antonio Harry MD - 08/07/2018 7:40 PM PSTFormatting of this note might be d ifferent from the original. [facility] Supriya Alvarez Emergency Department Encounter Note [address] [place] [id number] PCP:Kajal Gates MD [phone] eMERGENCY dEPARTMENT eNCOUnter CHIEF COMPLAINT Chief Complaint Patient presents with Shoulder Pain TRIAGE ED Triage Notes, ED Triage Notes Josy Valdes RN 08/07/2018 17:36 Pt pushed herself up of the couch and felt a tearing pain in the left shoulder blade that r adiated down to the left breast. Pt given Toradol in route by EMS, declined fentanyl. HPI Supriya Alvarez is a 38 y.o. female who presents she was getting up from a couch he pushed with the left arm and something in the back of her shoulder popped. She had severe pain. She required ambulance transfer to the hospital due to secondary to severe pain in the back of the left shoulder. She is here for further left shoulder pain and decreased range of mot ion of her left shoulder. Patient's here for further evaluation. Patient is hemodynamicall y stable. She states she has pain in her left axilla and left scapular region. PAST MEDICAL HISTORY Past Medical History: Diagnosis Date Cancer (HCC) DDD (degenerative disc disease), lumbar 09/16/2013 Left lumbar radiculitis 09/16/2013 Thyroid disease SURGICAL HISTORY Past Surgical History: Procedure Laterality Date SECTION CHOLECYSTECTOMY kidney stent 2005,2007,2009 3 kidney stents placed THYROIDECTOMY 2011 Dr. Florinda White TONSILLECTOMY TUBAL LIGATION CURRENT MEDICATIONS Previous Medications CHOLESTYRAMINE LIGHT (QUESTRAN) 4 G PACKET Take 4 g by mouth. IBUPROFEN (ADVIL, MOTRIN) 200 MG TABLET Take 400 mg by mouth Daily as needed. LEVOTHYROXINE (SYNTHROID) 200 MCG TABLET Take 125 mcg by mouth every morning (before br eakfast). ALLERGIES Allergies Allergen Reactions Gabapentin Swelling Metronidazole [...] Smokeless tobacco: Never Used Alcohol use No Drug use: No Sexual activity: Not Asked Other Topics Concern None Social History Narrative None REVIEW OF SYSTEMS Please see HPI, All systems negative except as marked. Twelve point review of system comp leted my me. PHYSICAL EXAM VITAL SIGNS: Temp: 37 C (98.6 F) Pulse: 107 Resp: 28 SpO2: 98 % BP: 106/90 Constitutional: Well developed, Well nourished, Non-toxic appearance. HENT: Normocephalic, Atraumatic, Bilateral external ears normal, Oropharynx moist, No oral exudates, Nose normal. Neck- Normal range of motion, No tenderness, Supple, No stridor. Eyes: PERRL, EOMI, Conjunctiva normal, No discharge. Respiratory: Normal breath sounds, No respiratory distress, No wheezing, No chest tenderne ss. Cardiovascular: Normal heart rate, Normal rhythm, No murmurs, No rubs, No gallops. GI: Bowel sounds normal, Soft, No tenderness, No masses, No pulsatile masses. : defered Musculoskeletal: Intact distal pulses, No cyanosis, No clubbing. Good range of motion in a ll major joints. No tenderness to palpation or major deformities noted. noted tenderness lef t scapular region, noted tenderness left axilla. Decreased range of motion left shoulder. Back:- No tenderness. Neurologic: Alert & oriented x 3, Normal sensory function, No focal deficits noted, no fa cial assymetry noted. Equal upholstery trimmer in all extremities Psychiatric: Affect normal, Judgment normal, Mood normal. RADIOLOGY x-ray to the left scapula and shoulder do not find acute fracture. No results found. ED COURSE & MEDICAL DECISION MAKING Pertinent Labs & Imaging studies reviewed. (See chart for details) Nursing notes reviewed. Medically patient appears to have what appears to be a rotator cuff injury and scapular elana n she most likely tore her infraspinatus or teres minor. Patient otherwise stable. Patient referred to orthopedics. She is being placed in a sling for comfort. She is encouraged to do icing as well as take pain medication as needed. At this point patient is otherwise stable. New Prescriptions IBUPROFEN (ADVIL,MOTRIN) 600 MG TABLET Take 1 tablet by mouth every 6 hours as needed f or Pain. OXYCODONE-ACETAMINOPHEN (PERCOCET) 5-325 MG PER TABLET Take 1 tablet by mouth every 6 h ours as needed. Discharge Instructions Return for severe worsening symptoms. Please follow-up in orthopedic clinic. Do icing to your shoulder. Take pain medication as needed. Please return for severe worsening ongoing shoulder pain weakness or other worsening symptoms. Ultimately need to be seen in orthopedi c clinic and have further follow-up. FINAL IMPRESSION 1. Incomplete tear of left rotator cuff Acute Portions of this chart may have been created with [employer] voice recognition software. Occasi onal wrong-word or sound-alike substitutions may have occurred due to the inherent franklin itations of voice recognition software. Please read the chart carefully and recognize, using context, where these substitutions have occurred Marco Antonio Harry MD 08/07/181941 Sudarshan Moreno RN - 08/07/2018 5:35 PM PSTPt pushed herself up of the couch and felt a tearing pain in the left shoulder blade that radiated down to the left breast. Pt given Toradol in route by EMS, declined fentanyl. Electronically signed by Josy Valdes RN at 8 5:36 PM Mohsen Cheung Cert MA - 08/07/2018 5:33 PM PSTBed: ED10 Expected date: 08/07/18 Expected time: 1735 Means of arrival: Ambulance Comments: Medic 61 document ed in this encounter Plan of Treatment + + +--------+ + + | Name | Type | Priori | Associated Diagnoses | Order Schedule | | | | ty | | | + + +--------+ + + | * [facility] | Outpatient | Routin | Incomplete tear of | Ordered: 08/07/2018 | | Orthopedic Surgery - | Referral | e | left rotator cuff | | | AMB Referral | | | | | + + +--------+ + + documented as of this encounter Procedures + +--------+ + + + | Procedure Name | Priori | Date/Time | Associated Diagnosis | Comments | | | ty | | | | + +--------+ + + + | XR RIBS LEFT 2 VW | Routin | 08/07/2018 | | Results for this | | | e | 7:06 PM | | procedure are in the | | | | PST | | results section. | + +--------+ + + + | XR SHOULDER LEFT 2 + | STAT | 08/07/2018 | | Results for this | | VW | | 7:05 PM | | procedure are in the | | | | PST | | results section. | + +--------+ + + + documented in this encounter Results XR Ribs Left 2 Vw (08/07/2018 7:06 PM PST) + + | Specimen | + + | | + + + + + | Narrative | Performed At | + + + | XR RIBS LEFT 2 VW, XR SHOULDER LEFT 2 + VW 08/07/2018 7:05 PM | [facility] | | HISTORY: left scapular pain. COMPARISON: None. Findings: | | | There is no evidence for acute rib fractures. Left glenohumeral joint | | | is intact and without significant abnormality. Left acromioclavicular | | | joint is intact. Heart size is within normal limits. Aorta is | | | normal. Mediastinum is unremarkable. Central pulmonary vasculature is | | | normal. The bilateral lungs are clear with no evidence for pleural | | | effusion or pneumothorax. There are no acute osseous abnormalities | | | otherwise. IMPRESSION - No compelling evidence of a left | | | scapular fracture. No evidence of an acute fracture or dislocation | | | of the left glenohumeral joint. Dictated and Signed by: Cb | | | MD Sofiya Electronically signed: 08/07/2018 9:15 PM | | + + + + + | Procedure Note | + + | Kristofer, Rad Results In - 08/07/2018 9:19 PM PST XR RIBS LEFT 2 VW, XR SHOULDER LEFT 2 + | | VW 08/07/2018 7:05 PMHISTORY: left scapular pain.COMPARISON: None.Findings:There is no | | evidence for acute rib fractures. Left glenohumeral joint is intactand without | | significant abnormality. Left acromioclavicular joint is intact.Heart size is within | | normal limits. Aorta is normal. Mediastinum isunremarkable. Central pulmonary | | vasculature is normal. The bilateral lungs areclear with no evidence for pleural | | effusion or pneumothorax. There are no acuteosseous abnormalities otherwise.IMPRESSION | | -No compelling evidence of a left scapular fracture.No evidence of an acute fracture or | | dislocation of the left glenohumeral joint.Dictated and Signed by: Cb Arriaza MD | | Electronically signed: 08/07/2018 9:15 PM | |Heart size is within normal limits. Aorta is normal. Mediastinum is | |unremarkable. Central pulmonary vasculature is normal. The bilateral lungs are | |clear with no evidence for pleural effusion or pneumothorax. There are no acute | |osseous abnormalities otherwise. | | | |IMPRESSION - | | | |No compelling evidence of a left scapular fracture. | | | |No evidence of an acute fracture or dislocation of the left glenohumeral joint. | | | |Dictated and Signed by: Cb Arriaza MD | | Electronically signed: 08/07/2018 9:15 PM | + + + +---------+ + + | Performing | Address | City/State/Zipcode | Phone Number | | Organization | | | | + +---------+ + + | [facility] | | | | + +---------+ + + XR Shoulder Left 2 + Vw (08/07/2018 7:05 PM PST) + + | Specimen | + + | | + + + + + | Narrative | Performed At | + + + | XR RIBS LEFT 2 VW, XR SHOULDER LEFT 2 + VW 08/07/2018 7:05 PM | [facility] | | HISTORY: left scapular pain. COMPARISON: None. Findings: | | | There is no evidence for acute rib fractures. Left glenohumeral joint | | | is intact and without significant abnormality. Left acromioclavicular | | | joint is intact. Heart size is within normal limits. Aorta is | | | normal. Mediastinum is unremarkable. Central pulmonary vasculature is | | | normal. The bilateral lungs are clear with no evidence for pleural | | | effusion or pneumothorax. There are no acute osseous abnormalities | | | otherwise. IMPRESSION - No compelling evidence of a left | | | scapular fracture. No evidence of an acute fracture or dislocation | | | of the left glenohumeral joint. Dictated and Signed by: Cb | | | MD Sofiya Electronically signed: 08/07/2018 9:15 PM | | + + + + + | Procedure Note | + + | Kristofer, Rad Results In - 08/07/2018 9:19 PM PST XR RIBS LEFT 2 VW, XR SHOULDER LEFT 2 + | | VW 08/07/2018 7:05 PMHISTORY: left scapular pain.COMPARISON: None.Findings:There is no | | evidence for acute rib fractures. Left glenohumeral joint is intactand without | | significant abnormality. Left acromioclavicular joint is intact.Heart size is within | | normal limits. Aorta is normal. Mediastinum isunremarkable. Central pulmonary | | vasculature is normal. The bilateral lungs areclear with no evidence for pleural | | effusion or pneumothorax. There are no acuteosseous abnormalities otherwise.IMPRESSION | | -No compelling evidence of a left scapular fracture.No evidence of an acute fracture or | | dislocation of the left glenohumeral joint.Dictated and Signed by: Cb Arriaza MD | | Electronically signed: 08/07/2018 9:15 PM | |Heart size is within normal limits. Aorta is normal. Mediastinum is | |unremarkable. Central pulmonary vasculature is normal. The bilateral lungs are | |clear with no evidence for pleural effusion or pneumothorax. There are no acute | |osseous abnormalities otherwise. | | | |IMPRESSION - | | | |No compelling evidence of a left scapular fracture. | | | |No evidence of an acute fracture or dislocation of the left glenohumeral joint. | | | |Dictated and Signed by: Cb Arriaza MD | | Electronically signed: 08/07/2018 9:15 PM | + + + +---------+ + + | Performing | Address | City/State/Zipcode | Phone Number | | Organization | | | | + +---------+ + + | [facility] | | | | + +---------+ + + documented in this encounter Visit Diagnoses + + | Diagnosis | + + | Incomplete tear of left rotator cuff - Primary | + + documented in this encounter Administered Medications + + + + +------+------+ | Medication Order | MAR | Action | Dose | Rate | Site | | | Action | Date | | | | + + + + +------+------+ | oxyCODONE-acetaminophen | Dispense | 08/07/20 | 1 tablet | | | | (PERCOCET) 5-325 mg per tablet | to Home | 18 7:46 | | | | | (ED prepack) 1-2 tablet 1-2 | | PM PST | | | | | tablet, Oral, EVERY 6 HOURS PRN, | | | | | | | Pain, Starting 08/07/18 at | | | | | | | 5335, Patient Address: [facility] [address] | | | [address] | [address];[place] [address], | | | | | | + + + + +------+------+ +---+---+ | | | +---+---+ documented in this encounter
--- OUTSIDE RECORDS SUMMARY | ~2020-03-17 | XMS | Encounter Summary ---
Demographics + + + | Address | [address] | | | [place] [address] | + + + | Home Phone | | + + + | Preferred Language | Unknown | + + + | Marital Status | | + + + | Gnosticist Affiliation | Unknown | + + + | Race | Unknown | + + + | Ethnic Group | Unknown | + + + Author + + + | Author | [facility] | | | and [place] | + + + | Organization | [facility] | | | and [place] [...] | | Kim | | [place] [address] | | + + + + + | Gita Merino | ECON | [address] | | | | | [place], | | | | | [place] [address] | | + + + + + Care Team Providers + +------+ + | Care Manager Food Name | Role | Phone | + [...] | | | [address] | [place] [facility] [place] | | | | | [place], [place] | [address] | | | | | [address] | | | | | | [phone] | | | +--------+ + + + [...] TR Vmax: 2.56 m/s | | | Auto Customize Painter: Authenticated by: RAMIREZ OCAMPO MD Report Date/Time: | | | 08-25-2017 16:42:55 | | + + + + -+ | Procedure Note | + -+ | Kristofer, Rad Conversion - 04/14/2019 4:45 PM PDT Patient Name: Charlotte Alvarez of | | : 1980 Performing Physician: RAMIREZ OCAMPO, | | MD INDICATIONS | | CONCLUSIONS 1. Overall left [...] cmLVIDd: 5.04 cmLVPWd: 0.93 cmLVOT Area: 2.74 [id number] Diam: | | 1.86 cm%FS: 36.41 %EF(Teich): [...] (A-L): | | 19.90 ml/m2LAAs A2C: 15.84 [id number] A-L A2C: 43.16 mlLALs A2C: 4.93 cmLAAs A4C: | | 17.29 [id number] A-L A4C: 53.65 mlLALs A4C: 4.73 cmRAAs: 15.13 bc8LAVPA A-L: | | 41.81 mlRAESV MOD: 40.65 mlRALs: 4.64 cmTAPSE: 2.69 cmAV maxP.07 mmHgAV | | meanP.94 mmHgAV Vmax: 1.58 m/Layla Vmean: 1.17 m/Layla VTI: 32.43 cmAVA Vmax: | | 1.95 cm2AVA (VTI): 2.29 [id number] Vmax: 0.00 cm2/m2AVAI (VTI): 0.00 cm2/m2LVOT | | maxP.12 mmHgLVOT meanP.71 mmHgLVSI Dopp: 30.11 ml/m2LVSV Dopp: 74.37 | | mlLVOT Vmax: 1.13 m/sLVOT Vmean: 0.77 m/sLVOT VTI: 27.10 cmMV A Blair: 0.63 m/sMV | | DecT: 237.08 msMV E Blair: 0.66 m/sMV E/A Ratio: 1.04MV PHT: 68.75 msMVA By PHT: | | 3.19 gl0Yogsea e': 0.09 m/sSeptal E/e': 6.78Lateral e': 0.13 m/sLateral E/e': | | 4.83RAP: 5 mmHgRVSP: 31.29 mmHgTR maxP.29 mmHgTR Vmax: 2.56 m/s | | Auto Customize Painter:Authenticated by: Shirley CASTELLANOS Date/Time: 08-25-2017 16:42:55 | | IMPRESSION: 1. [...] |TR Vmax: 2.56 m/s | | | |Auto Customize Painter: | |Authenticated by: RAMIREZ OCAMPO MD | [...]
--- OUTSIDE RECORDS SUMMARY | ~2020-03-17 | XMS | Encounter Summary ---
Demographics + + + | Address | [address] | | | [place] [address] | + + + | Home Phone | | + + + | Preferred Language | Unknown | + + + | Marital Status | | + + + | Buddhist Affiliation | Unknown | + + + | Race | Unknown | + + + | Ethnic Group | Unknown | + + + Author + + + | Author | [facility] | | | and [place] | + + + | Organization | [facility] | | | and [place] [...] | | Kim | | [place] [address] | | + + + + + | Gita Merino | ECON | [address] | | | | | [place], | | | | | [place] [address] | | + + + + + Care Team Providers + +------+ + | Care Ash Kier Boiler Name | Role | Phone | + +------+ + | Emmanuelle Uribe PA-C | PCP | | + +------+ + Encounter Details +--------+ + + + + | Date | Type | Department | Care Team | Description | +--------+ + + + + | 09/28/ | Hospital | [facility] | Benjamin Pendleton | | | 2013 | Encounter | MED CTR XRAY [address] | | | | | [place] | [address] [place], [place] | | | | | [place] [address] | [address] | | | | | [phone] | | | +--------+ + + + [...] + + documented as of this encounter Medications at Time of Discharge [...] | + +--------+ + + + | FL EPIDURAL STEROID | Routin | 09/28/2013 | | Results for this | | INJECTION LUMBAR | e | 5:08 PM | | procedure are in the | | TRANSFORAMINAL | | PST | | results section. | + +--------+ + + + documented in this encounter Results FL CHRIS Lumbar Transforaminal (09/28/2013 5:08 PM PST) + + | Specimen | + + | | + + + + + | Narrative | Performed At | + + + | [facility] Diagnostic Imaging | [place] | | Department [address] [facility] [place] | [facility] | | [ rep [address] [ rep [facility] | | [facility]] Signed | - IMAGING | | | | | Patient Name: MARANDA JOHNSON Physician: | | | SABI : 1980 Age: 33 Sex: F Unit #: [id number] | | | Exam Date: 09/28/13 Location: [facility] | | | Report #: [id number] Page: | | | %(RAD)RES..mtdd.print.filter("pg") of %(RAD) | | | RES..mtdd.print.filter("tpg") | | | | | | Accession Number: [id number] | | | PROCEDURE NOTE LUMBAR TRANSFORAMINAL EPIDURAL STEROID | | | INJECTION, 09/28/2013 CLINICAL HISTORY: ICD-9 CODE | | | 724.4 LUMBAR RADICULOPATHY Ms. Maranda Johnson presents to | | | the fluoroscopy suite for a fluoroscopically-guided left L5-S1 | | | transforaminal epidural steroid injection as part of conservative | | | management for chronic pain with lumbar radiculopathy and | | | degenerative disk disease. After informed consent was obtained, the | | | patient lay in the prone position on the fluoroscopy table. The | | | area was identified under fluoroscopic guidance. The area was | | | prepped and draped in sterile fashion. A 25-gauge, 1.5-inch needle | | | was inserted into this region and approximately 3 mL of buffered 1% | | | lidocaine was infused and a 22-gauge spinal needle was inserted into | | | the posterior superior transforaminal space and advanced into the | | | epidural space under fluoroscopic guidance. Confirmation into the | | | epidural space was obtained with infusion of approximately 1 mL of | | | Isovue contrast which showed epidural flow as well as nerve sheath | | | flow. Then, a combination of 1.5 mL of 1% lidocaine and 1.5 mL of 6 | | | mg/mL Celestone was infused. The patient tolerated the procedure | | | well without complications. Pre- and post-procedure blood pressures | | | were stable. The patient was given verbal as well as written | | | followup instructions. Prior to the start of the | | | procedure, the following were performed and verified, including | | | correct patient identity, correct site/side marked and visible, | | | agreement on the procedure to be done, correct patient positioning | | | and an accurate procedure consent form. Any safety precautions based | | | on clinical history and/or medication use have been addressed. | | | I personally performed the procedure above. | | | Dictated Date/Time: 09/28/2013 17:08 Transcribed Date/Time: | | | 09/28/2013 19:05 Retail Grocer: | | | <<Signature on File>> | | | Benjamin Santizo | | | MD Keerthi10/04/13 [id number] <Electronically signed by Benjamin Santizo | | | Keerthi CHUN> Benjamin Pendleton MD 09/28/13 [id number] | | | Retail Grocer: [employer] Dgfrzsliiuevm08/05/14 1906 | | | Jere Grayson DO | | + + + + + + + + | Performing | Address | City/State/Zipcode | Phone Number | | Organization | | | | + + + + + | [address] | [address] | [place] | [phone] | | [facility] | | [address] | | | - IMAGING | | | | + + + + + documented in this encounter Visit Diagnoses Not on filedocumented in this encounter
--- OUTSIDE RECORDS SUMMARY | ~2020-03-17 | XMS | Clinical Summary ---
Demographics + + + | Address | [address] | | | [place] [address] | + + + | Home Phone | | + + + | Preferred Language | Unknown | + + + | Marital Status | | + + + | Caodaism Affiliation | Unknown | + + + | Race | Unknown | + + + | Ethnic Group | Unknown | + + + Author + + + | Author | [facility] | | | and [place] | + + + | Organization | [facility] | | [...] | | Kim | | [place] [address] | | + + + + + | Gita Merino | ECON | [address] | | | | | [place], | | | | | [place] [address] | | + + + + + Care Team Providers + +------+ + | Care Coat Presser Name | Role | Phone | + +------+ + | Kajal Hernandez | PCP | | | MD | | | + +------+ + Allergies + + + + + + | Active Allergy | Reactions | Severity | Noted | Comments | | | | | Date | | + + + + + + | Gabapentin | Swelling | High | 09/14/19 | | | | | | 14 | | + + + + + + | Metronidazole | Rash | High | 09/14/19 | | | | | | 14 | | + + + + + + Medications + + + +---------+------+------+-------+ | Medication | Sig | Dispensed | Refills | Star | End | Statu | | | | | | t | Date | s | | | | | | Date | | | + + + +---------+------+------+-------+ | ibuprofen (ADVIL, | Take 400 mg by mouth | | 0 | | | Activ | | MOTRIN) 200 mg | Daily as needed. | | | | | e | | tablet | | | | | | | + + + +---------+------+------+-------+ | cholestyramine | Take 4 g by mouth | | 0 | | | Activ | | light (QUESTRAN) 4 g | Daily. | | | | | e | | packet | | | | | | | + + + +---------+------+------+-------+ | levothyroxine | | | 0 | 02/2 | | Activ | | (SYNTHROID) 150 mcg | | | | 1/20 | | e | | tablet | | | | 19 | | | + + + +---------+------+------+-------+ | benzonatate | Take 1 capsule by | 30 | 0 | 03/0 | | Activ | | (TESMAXI JUAREZ) | mouth 3 times daily | capsule | | 8/20 | | e | | 100 mg capsule | as needed for Cough. | | | 19 | | | + + + +---------+------+------+-------+ Active Problems + + + | Problem | Noted Date | + + + | Left lumbar radiculitis | 09/16/2013 | + + + | DDD (degenerative disc disease), lumbar | 09/16/2013 | + + + Family History + + +------+ + | Medical History | Relation | Name | Comments | + + +------+ + | Heart disease | Maternal | | | | | Grandfath | | | | | er | | | + + +------+ + | Heart disease | Maternal | | | | | Grandmoth | | | | | er | | | + + +------+ + | Stroke | Paternal | | | | | Aunt | | | + + +------+ + | Cancer | Paternal | | | | | Grandmoth | | | | | er | | | + + +------+ + | Stroke | Paternal | | | | | Uncle | | | + + +------+ + + +------+--------+ + | Relation | Name | Status | Comments | + +------+--------+ + | Maternal Grandfather | | | | + +------+--------+ + | Maternal Grandmother | | | | + +------+--------+ + | Paternal Aunt | | | | + +------+--------+ + | Paternal Grandmother | | | | + +------+--------+ + | Paternal Uncle | | | | + +------+--------+ + Social History + +-------+ +--------+------+ | [...] on file | | + + + Last Filed Vital Signs + + + [...] | | + + + + + Plan of Treatment + + + + + | Health Maintenance | Due Date | Last | Comments | | | | Done | | + + + + + | Hepatitis C | | | | | Screening | 2 | | | + + + + + | Medication | | | | | Management | 2 | | | + + + + + | Vaccine: | | | | | Dtap/Tdap/Td (1 - | 1 | | | | Tdap) | | | | + + + + + | Cervical Cancer | | | | | Screening (Pap) | 2 | | | + + + + + | Med Mgmt: TSH | | 10/06/19 | | | | 4 | 13, | | | | | 06/29/20 | | | | | 12, | | | | | 03/09/20 | | | | | 12 | | + + + + + | Med Mgmt: BUN | | 03/22/20 | | | | 8 | 17 | | + + + + + | Med Mgmt: Cr | | 03/22/20 | | | | 8 | 17 | | + + + + + | Vaccine: Influenza | | | | | (#1) | 0 | | | + + + + + Results Not on filefrom Last 3 Months Insurance +-------+--------+ +--------+-------+---------+------+ | Payer | Benefi | Subscriber | Effect | Phone | Address | Type | | | t Plan | ID | [place] | | | | | | / | | Dates | | | | | | Group | | | | | | +-------+--------+ +--------+-------+---------+------+ | BCBS | BCBS | [id number] | 07/10/ | | | PPO | | | FEDERA | | 2000-P | | | | | | L FEP | | resent | | | | +-------+--------+ +--------+-------+---------+------+ + +--------+ +--------+ + + | Guarantor Name | Accoun | Relation to | Date | Phone | Billing Address | | | t Type | Patient | of | | | | | | | | | | + +--------+ +--------+ + + | Supriya Alvarez | Person | Self [birth year] | [address] | | | al/Fam | | 1980 | [phone] | [place] [address] | | | cesar | | | 2 (Home) | | + +--------+ +--------+ + + Advance Directives + + + + + | Type | Date Recorded | Patient | Explanation | | | | Buffing Machine Tender | | + + + + + | Power of | | | | | Forest Technician | | | | + + + + + | Advance | | | | | Directive | | | | + + + + +
--- OUTSIDE RECORDS SUMMARY | ~2020-03-17 | XMS | Encounter Summary ---
Demographics + + + | Address | [address] | | | [place] [address] | + + + | Home Phone | | + + + | Preferred Language | Unknown | + + + | Marital Status | | + + + | Christian Affiliation | Unknown | + + + | Race | Unknown | + + + | Ethnic Group | Unknown | + + + Author + + + | Author | [facility] | | | and Amado[place] | + + + | Organization | [facility] | | | and [...] | | Kim | | [place] [address] | | + + + + + | Gita Merino | ECON | [address] | | | | | [place], | | | | | [place] [address] | | + + + + + Care Team Providers + +------+ + | Care Transplant Rn Name | Role | Phone | + +------+ + PCP | Unavailable | + +------+ + Encounter Details +--------+ + + + + | Date | Type | Department | Care Team | Description | +--------+ + + + + | 03/09/ | Hospital | [facility] | Wagner Pollock, | | | 2011 - | Encounter | MED CTR CANCER | [place] [address] | | | | | [place] [address] | [place] | | | 03/23/ | | [place] | [address] | | | 2011 | | [address] | [phone] | | | | | [phone] | | | +--------+ + + + [...] [facility] | | | Peroxidase | Performed: [place] | IU/mL | [facility] | | | Antibody | [facility] | | MEDICAL | | | | Center, [address], | | CENTER - | | | | [place] [address] | | LABORATORY | | | | CLIA: [id number] | | | | + + + + + + + + | Specimen | + + | | + + + + + + + | Performing | Address | City/State/Zipcode | Phone Number | | Organization | | | | + + + + + | [facility] | [address] | [place] | [phone] | | [facility] | | [address] | | | - LABORATORY | | | | + + + + + | [facility] | [address] | [place] | | | [facility] | | [address], [facility] | | | - LABORATORY | | [...] | | | in Ab | Performed: [place] | IU/mL | [facility] | | | | [facility] | | MEDICAL | | | | Center, [address], | | CENTER - | | | | [place] [address] | | LABORATORY | | | | CLIA: [id number] | | | | + + + + + + | Thyroglobul | 4.2Comment: Testing | 1.2 - 35.0 | [facility] | | | in | Performed: [place] | ng/mL | [facility] | | | | [facility] | | MEDICAL | | | | Center, [address], | | CENTER - | | | | [place] [address] | | LABORATORY | | | | CLIA: [id number] | | | | + + + + + + + + | Specimen | + + | | + + + + + + + | Performing | Address | City/State/Zipcode | Phone Number | | Organization | | | | + + + + + | [facility] | [address] | [place] | [phone] | | [facility] | | [address] | | | - LABORATORY | | | | + + + + + | [facility] | [address] | [place] | | | [facility] | | [address], [facility] | | | - LABORATORY | | | | + + + + + TSH (03/09/2012 3:51 PM PDT) + + + + + + | Component | Value | Ref Range | Performed | Pathologist | | | | | At | Signature | + + + + + + | TSH | 85.59 (H)Comment: | 0.34 - 5.60 | [facility] | | | | Testing performed on the | uIU/mL | [facility] | | | | [facility] | | MEDICAL | | | [...] + | [facility] | [address] | [place], [place] | [phone] | | [facility] | | [address] | | | - LABORATORY | | | | + + + + + | [facility] | [address] | [place], [place] | | | [facility] | | [id number] | | | - LABORATORY | | [...] | @INTERNAL CONTROL OK?: | | [facility] | | | | RED CONTROL LINE [...] ST. | [address] | [place] | [phone] | | [facility] | | [address] | | | - LABORATORY | | | | + + + + + | [facility] | [address] | [place], [place] | | | [facility] | | [address] [place] [address] | | | - LABORATORY | | | | + + + + + documented in this encounter Visit Diagnoses Not on filedocumented in this encounter"
--- OUTSIDE RECORDS SUMMARY | ~2020-03-17 | XMS | Encounter Summary ---
Demographics + + + | Address | [address] | | | [place] [address] | + + + | Home Phone | | + + + | Preferred Language | Unknown | + + + | Marital Status | | + + + | Oriental Orthodox Affiliation | Unknown | + + + | Race | Unknown | + + + | Ethnic Group | Unknown | + + + Author + + + | Author | [facility] | | | and Amadoana | + + + | Organization | [facility] | | | and [place] [...] | | Kim | | [place] [address] | | + + + + + | Gita Merino | ECON | [address] | | | | | [place], | | | | | [place] [address] | | + + + + + Care Team Providers + +------+ + | Care Curtain Supervisor Name | Role | Phone | + +------+ + PCP | Unavailable | + +------+ + Encounter Details +--------+ + + + + | Date | Type | Department | Care Team | Description | +--------+ + + + + | 10/06/ | Hospital | [facility] | Wagner Pollock, | | | 2012 - | Encounter | MED CTR XRAY [address] | MD [address] | | | | | [place] | [place], [place] | | | 10/08/ | | [place] [address] | [address] | | | 2012 | | [phone] | [phone] | | | | | | | [...] Performed At | + + + | Merged With [facility] | [place] | | Department [address] [place] [address] | [facility] | | [ rep [address]] [ rep [facility] | | [facility]] Signed | - IMAGING | | | | | Patient Name: MARANDA JOHNSON Betsy Physician: | | | ASHT. : 1980 Age: 32 Sex: F Unit #: [id number] | | | Exam Date: 10/06/12 [place] [facility] [place] | | Report #: [id number] Page: | | | %(RAD)RES..mtdd.print.filter("pg") of %(RAD) | | | RES..mtdd.print.filter("tpg") | | | | | | Accession Number: [id number] | | | WHOLE BODY I-131 SCAN, [...] Transcribed | | | Date/Time: 10/08/2012 11:34 [place]: | | | <<Signature on File>> | | | | | | Vic Barker MD10/08/12 1213 <Electronically signed by | | | Vic Barker MD> Vic Barker MD 10/08/12 | | | 1118 [place]: [employer] [id number]/[id number] 1134 | | | Wagner Pollock MD | | + + + + + + + + | Performing | Address | City/State/Zipcode | Phone Number | | Organization | | | | + + + + + | [facility] | [address] | [place] | [phone] | | [facility] | | [address] | | | - IMAGING | | | | + + + + + documented in this encounter Visit Diagnoses Not on filedocumented in this encounter
--- OUTSIDE RECORDS SUMMARY | ~2020-03-17 | XMS | Encounter Summary ---
Demographics + + + | Address | [address] | | | [place] [address] | + + + | Home Phone | | + + + | Preferred Language | Unknown | + + + | Marital Status | | + + + | Hoahaoism Affiliation | Unknown | + + + | Race | Unknown | + + + | Ethnic Group | Unknown | + + + Author + + + | Author | [facility] | | | and [place]ado[place] | + + + | Organization | [facility] [...] | | Kim | | [place] [address] | | + + + + + | Gita Merino | ECON | [address] | | | | | [place], | | | | | [place] [address] | | + + + + + Care Team Providers + +------+ + | Care Prop Attendant Name | Role | Phone | + +------+ + PCP | Unavailable | + +------+ + Encounter Details +--------+ + + + + | Date | Type | Department | Care Team | Description | +--------+ + + + + | 02/16/ | Hospital | [facility] | Wagner Pollock, | | | 2011 - | Encounter | MED CTR CANCER | [place] [address] | | | | | [place] [address] | [place] | | | 02/20/ | | [place] | [address] | | | 2011 | | [address] | [phone] | | | | | [phone] | | | +--------+ + + + [...] year history of hypothyroidism. Presented to [facility] in 2010 with complaints of fatigue, weight gain, and feeling cold, similar symptoms to what she had prior to her diag nosis of hypothyroidism. She states that she had not taken her thyroid medication for some time. She suspected this was related to hypothyroidism and labs were checked. She was event ually seen by Dr. James Masters in October [...] tonsillectomy and adenoidectomy and tubal ligatio n. LIFE INSURANCE AGENT HISTORY: The patient is G6, P6, was [...] with her rosalino pardo and children in [place], [place]. FAMILY MEDICAL HISTORY: No known family [...] Wagner Pollock MD Radiation Oncology JOB #: [id number] EXT JOB #:[id number] <Electronicall y Signed by Wagner Pollock MD> 03/04/12 2333 documented in this encounter Plan of Treatment Not on filedocumented as of this encounter Visit Diagnoses Not on filedocumented in this encounter"
--- OUTSIDE RECORDS SUMMARY | ~2020-03-17 | XMS | Encounter Summary ---
Demographics + + + | Address | [address] | | | [place] [address] | + + + | Home Phone [...] | [facility] | | | and [place] | + + + | Organization | [facility] [...] | | Kim | | [place] [address] | | + + + + + | Gita Merino | ECON | [address] | | | | | [place], | | | | | [place] [address] | | + + + + + Care Team Providers + +------+ + | Care Jump Iron Machine Presser Name | Role | Phone | [...] | | Physical | Diagnoses | | zUmaerg, | | | | Medicine and | Bulging | Jojo, | Benjamin Santizo MD | | | | Rehabilitatio | disc | Emmanuelle Staton, | [address] | | | | n | | [address] | [address] | | | | | | [address] | [place] | | | | | | Ave | [address] Phone: | | | | | | [place], | [phone] | | | | | | [place] | Fax: | | | | | | [address] | [phone] | | | | | | Phone: | | | | | | | [phone] | | | | | | | Fax: | | | | | | | [phone] | | +--------+--------+ + + + + Encounter Details +--------+---------+ + + + | Date | Type | Department | Care Team | Description | +--------+---------+ + + + | 09/14/ | Office | [facility] | Benjamin Pendleton | Left lumbar | | 2013 | Visit | PHYSIATRY [address] | TMD [address] | radiculitis (Primary | | | | [address] | [place] | Dx); DDD | | | | [place] | [address] | (degenerative disc | | | | [address] | | disease), lumbar | | | | [phone] | | | +--------+---------+ + + + [...] of the procedure you must provide a courier driver to take you home. For all [...] Surgical History [facility] Cholecystectomy section Tubal ligation Kidney stent [...] has no apparent deficits with short or usp memory. The cranial nerves appear grossly intact. [...] Pendleton MD, 09/14/2013 documented in this encounter Miscellaneous Notes Miscellaneous - ONBASE SCAN [facility] - 09/14/2013 12:00 AM PST iscellaneous - ONBASE SCAN [facility] - 09/14/2013 12:00 AM PSTEle ctronically signed by Jacky Johnson at 09/29/2013 7:53 AM PSTMiscellaneous - ONBASE SCAN [facility] T - 09/14/2013 12:00 AM PST d ocumented in this encounter Plan of Treatment Not [...]
--- OUTSIDE RECORDS SUMMARY | ~2020-03-17 | XMS | Encounter Summary ---
Demographics + + + | Address | [address] | | | [place] [address] | + + + | Home Phone | | + + + | Preferred Language | Unknown | + + + | Marital Status | | + + + | Methodist Affiliation | Unknown | + + + | Race | Unknown | + + + | Ethnic Group | Unknown | + + + Author + + + | Author | [facility] | | | and Amado[place] | + + + | Organization | [facility] | | | and [...] | | Kim | | [place] [address] | | + + + + + | Gita Merino | ECON | [address] | | | | | [place], | | | | | [place] [address] | | + + + + + Care Team Providers + +------+ + | Care Laundry Operator Finishing Name | Role | Phone | + +------+ + PCP | Unavailable | + +------+ + Encounter Details +--------+ + + + + | Date | Type | Department | Care Team | Description | +--------+ + + + + | 06/29/ | Hospital | [facility] | Wagner Pollock, | | | 2011 - | Encounter | MED CTR CANCER | [place] [address] | | | | | [place] [address] | [place] | | | 07/23/ | | [place] | [address] | | | 2011 | | [address] | [phone] | | | | | [phone] | | | +--------+ + + + [...] [facility] | | | Peroxidase | Performed: [place] | IU/mL | [facility] | | | Antibody | [facility] | | MEDICAL | | | | [place], [address], | | CENTER - | | | | [place] [address] | | LABORATORY | | | | CLIA: [id number] | | | | + + + + + + + + | Specimen | + + | | + + + + + + + | Performing | Address | City/State/Zipcode | Phone Number | | Organization | | | | + + + + + | [facility] | [address] | [place], [place] | [phone] | | [facility] | | [address] | | | - LABORATORY | | | | + + + + + | [facility] | [address] | [place], [place] | | | [facility] | | [address] [place] [address] | | | - LABORATORY | | [...] | | | in Ab | Performed: [place] | IU/mL | [facility] | | | | [facility] | | MEDICAL | | | | [place], [address], | | CENTER - | | | | [place] [address] | | LABORATORY | | | | CLIA: [id number] | | | | + + + + + + | Thyroglobul | 0.1 (L)Comment: Testing | 1.2 - 35.0 | [facility] | | | in | Performed: [place] | ng/mL | [facility] | | | | [facility] | | MEDICAL | | | | [place], [address], | | CENTER - | | | | [place] [address] | | LABORATORY | | | | CLIA: [id number] | | | | + + + + + + + + | Specimen | + + | | + + + + + + + | Performing | Address | City/State/Zipcode | Phone Number | | Organization | | | | + + + + + | [facility] | [address] | [place] | [phone] | | [facility] | | [address] | | | - LABORATORY | | | | + + + + + | [facility] | [address] | [place] | | | [facility] | | [address], [facility] | | | - LABORATORY | | [...] Testing performed on the | uIU/mL | [facility] | | | | Trey [...] + | [facility] | [address] | [place] | [phone] | | [facility] | | [facility] | | | - LABORATORY | | | | + + + + + | [facility] | [address] | [place], [place] | | | [facility] | | [address] [place] [address] | | | - LABORATORY | | | | + + + + + documented in this encounter Visit Diagnoses Not on filedocumented in this encounter"
--- OUTSIDE RECORDS SUMMARY | ~2020-03-17 | XMS | Encounter Summary ---
Demographics + + + | Address | [address] | | | [place] [address] | + + + | Home Phone | | + + + | Preferred Language | Unknown | + + + | Marital Status | | + + + | Episcopalian Affiliation | Unknown | + + + | Race | Unknown | + + + | Ethnic Group | Unknown | + + + Author + + + | Author | [facility] | | | and [place] | + + + | Organization | [facility] | | | and [place] | + + + | Address | Unknown | + + + | Phone | Unavailable | + + + Support + + + + + | Name | Relationship | Address | Phone | + + + + + | Ulisses Barcenas | ECON | [address] | | | [place] | | [place] [address] | | + + + + + | Gita Merino | ECON | [address] | | | | | [place], | | | | | [place] [address] | | + + + + + Care Team Providers + +------+ + | Care Business Risk Analyst Name | Role | Phone | + [...] + + | 03/22/ | Emergency | [facility] | Hal Dominguez | Headache, | | 2017 | | [facility] | MD Marco Antonio [address] | unspecified headache | | | | CENTER [address] | [facility] | type (Primary Dx); | | | | [place]ft[place]ago [place] | [place] [address] | Acute pain; Nausea | | | | [address] | [phone] | | | | | [phone] | | | +--------+ + + + [...] be sent through Care Everywhere.Headache, Unspe cified (Arabic)documented in this encounter Medications at Time of [...] +---------+--------+ + documented as of this encounter ED Notes Hal Dominguez MD - 03/22/2017 6:16 PM PDTFormatting of this note might be diff erent from the original. [facility] Supriya Alvarez Emergency Department Encounter Note [address] [place] [id number] PCP:Kajal Gates MD [phone] CHIEF COMPLAINT: Chief Complaint Patient presents with Headache (Adult - New Onset Or New Symptoms) ED Room: ED14 HPI Supriya Alvarez is a 36 y.o. female who presents to the Emergency Department Patient reports headache starting creating to the occiput that is rated up to 6 out of 10 localized aching cramping constant. Onset was over hours pain is described as throbbing pre sent for 2-3 days. No associated focal neurologic deficits. PAST MEDICAL & SURGICAL HISTORY Past Medical History: Diagnosis Date Cancer (HCC) DDD (degenerative disc disease), lumbar 09/16/2013 Left lumbar radiculitis 09/16/2013 Thyroid disease Past Surgical History: Procedure Laterality Date SECTION [...] Allergen Reactions Gabapentin Swelling Metronidazole Rash FAMILY AND SOCIAL HISTORY Family History Problem Relation Age of Onset Stroke Paternal Aunt Stroke Paternal Uncle Heart disease Maternal Grandmother Heart disease Maternal Grandfather Cancer Paternal Grandmother Social History Social History Marital status: Spouse name: N/A Number of children: N/A Years of education: N/A Social History Main Topics Smoking status: Never Smoker Smokeless tobacco: Not on file Alcohol use No Drug use: No Sexual activity: Not on file Other Topics Concern Not on file Social History Narrative No narrative on file REVIEW OF SYSTEMS As in history of present illness. A 10 system review was otherwise negative. PHYSICAL EXAM VITAL SIGNS: (first vital signs):Temp: 35.7 C (96.3 F) Pulse: 73 Resp: 16 SpO2: 99 % BP : 138/68 Body mass index is 51.69 kg/m. Constitutional: Moderately uncomfortable female patient. HEENT: Atraumatic, PERRL, Oropharynx benign. Neck: Supple with full range of motion. No JVD, no lymphadenopathy, no meningismus and no cervical spine tenderness to palpation or step-off noted. Respiratory: Good air movement bilaterally. No wheezes, No, rales. Cardiovascular: Normal S1 S2 Abdomen: Soft, nontender., no rebound, guarding, or masses., bowel tones normal. and no pu lsatile masses. Back: Within normal limits, no CVA tenderness and no midline thoracic or lumbar spinal tend erness Extremities: Nontender. No lower extremity edema, no calf asymmetry. Present distal pulse s. Skin: Warm, Dry, No rashes Neurologic: Alert & oriented. No focal deficits, Speech normal, gait not tested Psychiatric: Normal mood, affect and judgement. EKG 12-lead EKG shows LABS Results for orders placed or performed during the hospital encounter of 03/22/17 CBC with Differential Result Value Ref Range WBC 9.6 4.0 - 11.0 K/uL RBC 4.43 3.70 - 5.20 M/uL Hgb 12.2 11.5 - 16.0 g/dL Hct 36.2 34.0 - 47.0 % MCV 81.6 (L) 83.0 - 101.0 fL MCH 27.6 (L) 28.0 - 35.0 pg MCHC 33.8 32.0 - 36.0 g/dL RDW-CV 14.1 <15.0 % Platelet Count 303 140 - 440 K/uL MPV 7.8 fL % Neutrophils 81.5 45.0 - 82.0 % % Lymphocytes 11.7 (L) 20.0 - 45.0 % % Monocytes 6.0 4.0 - 12.0 % % Eosinophils 0.4 0.0 - 5.0 % % Basophils 0.4 0.0 - 1.0 % Absolute Neutrophils 7.80 1.80 - 8.50 K/uL Absolute Lymphocytes 1.10 0.60 - 3.20 K/uL Absolute Monocytes 0.60 0.00 - 1.00 K/uL Absolute Eosinophils 0.00 0.00 - 0.40 K/uL Absolute Basophils 0.00 0.00 - 0.10 K/uL Comprehensive Metabolic Panel Result Value Ref Range NA 138 136 - 149 mmol/L K 3.6 3.5 - 5.1 mmol/L CL 109 98 - 109 mmol/L CO2 21 (L) 24 - 31 mmol/L ANION GAP 8 3 - 16 mmol/L GLUCOSE 127 (H) 70 - 109 mg/dL BUN 8 7 - 18 mg/dL Creatinine, Serum/Plasma 0.82 0.60 - 1.30 mg/dL eGFR if not >60 >=60 mL/min/1.73m2 CALCIUM 9.0 8.3 - 10.5 mg/dL ALBUMIN 3.7 3.2 - 5.0 g/dL BILIRUBIN TOTAL 0.7 0.1 - 1.5 mg/dL Total protein 7.3 6.0 - 7.8 g/dL AST 37 10 - 42 U/L ALT 44 6 - 45 U/L ALK PHOS 84 40 - 110 U/L GLOBULIN 3.6 2.1 - 3.8 g/dL Albumin/Globulin ratio 1.0 0.8 - 2.0 BUN/CREA 9.8 , Serum, Qual Result Value Ref Range HCG SCREEN,SERUM Negative Negative Protime INR Result Value Ref Range PROTIME 13.6 11.3 - 13.9 seconds INR 1.02 0.90 - 1.10 IMAGING STUIDES (X-Rays interpreted by ED Physician) CT angio head/neck unremarkable ED COURSE & MEDICAL DECISION MAKING Pertinent Labs & Imaging studies were reviewed along with EMS notes and [facility] record s if applicable. (See chart for details) Medications and Allergy list reviewed. Nurses note and old records were reviewed The patient was seen and examined, The patient was placed on the monitor and monitored. An iv was placed. The patient was given a normal saline bolus. The patient was given iv narcotic pain medication dilaudid to which the patients pain responded. The patient was given Zofran, reglan, toradol, solumedrol, benadryl, mag ox po for their symptoms. Labs cbc, cmp, preg, inr were ordered and were unremarkable. Patient slept comfortably in bed for multiple hours, her symptoms completely resolved. At this time there is no clinical evidence of Intracranial bleed Intracranial mass Intracranial hypertension Meningitis Encephalitis Venous sinus thrombosis Cerebrovascular accident Carotid artery dissection The patient remained hemodynamically stable within normal limits during their ED course, and sat comfortably in their bed in no apparent distress. The patient was counseled about their results and workup including all incidental findings and the need for out patient follow up to which they verbalized their understanding. The patient was counseled about the importance of medical recommendations today and the dangers including harm or of non adherence to the plan. They verbalize their understanding of today's plan and agree with it. They were counseled that emergency services are available to them 24/ and to return to the ED immediately if symptoms return. The patient was given follow up. They were given further strict, thorough, actionable return precautions to which they verbalized their understanding. The patient's questions were answered and the patient agreed with the plan. The patient was discharged in good stable condition. Medical Decision Making Last Set of Vital Signs: Temp: 35.7 C (96.3 F) Pulse: 70 Resp: 16 SpO2: 96 % BP: 130/67 FINAL IMPRESSION ICD-10-CM ICD-9-CM 1. Headache, unspecified headache type R51 784.0 2. Acute pain R52 338.19 3. Nausea R11.0 787.02 Follow-up Information Kajal Gates MD. Specialty: Internal Medicine Contact information: [address] [facility] [address] Administrations This Visit diphenhydrAMINE (BENADRYL) injection 50 mg Admin Date 03/22/2017 Action Given Dose 50 mg Route Intravenous Administered By Susan Rubio RN HYDROmorphone (DILAUDID) injection 1 mg Admin Date 03/22/2017 Action Given Dose 1 mg Route Intravenous Administered By Josy Valdes RN iohexol (OMNIPAQUE 350) 350 mg/mL injection 95 mL Admin Date 03/22/2017 Action Given Dose 95 mL Route Intravenous Administered By Luis Daniel Torresologist ketorolac (TORADOL) injection 15 mg Admin Date 03/22/2017 Action Given Dose 15 mg Route Intravenous Administered By Susan Rubio RN magnesium oxide (MAG-OX) tablet 800 mg Admin Date 03/22/2017 Action Given Dose 800 mg Route Oral Administered By Susan Rubio RN methylPREDNISolone sodium succinate (solu-MEDROL) 62.5 mg/mL injection 125 mg Admin Date 03/22/2017 Action Given Dose 125 mg Route Intravenous Administered By Susan Rubio RN metoclopramide (REGLAN) 5 mg/mL injection 10 mg Admin Date 03/22/2017 Action Given Dose 10 mg Route Intravenous Administered By Susan Rubio RN ondansetron (ZOFRAN) injection 4 mg Admin Date 03/22/2017 Action Given Dose 4 mg Route Intravenous Administered By Josy Valdes, RN sodium chloride 0.9% (NS) bolus 55 mL Admin Date 03/22/2017 Action Push Dose 55 mL Rate 3,300 mL/hr Route Intravenous Administered By Sasha Jackson, Technologist Portions of this chart were created with [employer] voice recognition software. Inadvertent so und alike substitutions may be present and are unintentional Hal Dominguez MD 03/22/172018 Hal Dominguez MD 03/22/172019 documented i n this encounter Miscellaneous Notes ED Triage Notes - Josy Valdes RN - 03/22/2017 6:00 PM PDTPt report sudden onset of pain between the shoulder blades 3 days ago, radiates to the neck and the posterior head. Denies injury or history of h/a's. 17 6:00 PM PDTdocumented in this encounter Plan of [...] limiting the visualization of | | the C1-[id number] of the vertebral arteries bilaterally.No cervical lymphadenopathy. [...] | | Time | | seconds | [facility] | | | | | | MEDICAL | | | | | | CENTER - | | | | | | LABORATORY | | + + + + + + | INR | 1.02Comment: Usual Oral | 0.90 - 1.10 | [facility] | | | | Anticoagulation Range: | | [facility] | | | | 2.0 - [...] [address] | [place] | [phone] | | [facility] | | [address] | | | - LABORATORY | | [...] | | Serum | | | [facility] | | | | | | [...] ST. | [address] | [place] | [phone] | | [facility] | | [address] | | | - LABORATORY | | [...] | | | | mmol/L | [facility] | | | | | | MEDICAL | | | | | | CENTER - | | | | | | LABORATORY | | + + + + + + | K | 3.6 | 3.5 - 5.1 | [facility] | | | | | mmol/L | [facility] | | | | [...] 8 | 7 - 18 mg/dL | [facility] | | | | | | [facility] | | | | | | MEDICAL | | | | | | CENTER - | | | | | | LABORATORY | | + + + + + + | Creatinine | 0.82 | 0.60 - 1.30 | [facility] | | | | | mg/dL | [facility] | | | | | | MEDICAL | | | | | | CENTER - | | | | | | LABORATORY | | + + + + + + | eGFR if not | >60Comment: GLOMERULAR | >=60 | [facility] | | | | FILTRATION | mL/min/1.73m2 | [facility] | | | [place] | RATE,ESTIMATED | | MEDICAL | | | | mL/min/1.43j8Csvh than | | CENTER - | | [...] | | | | | mg/dL | [facility] | | | | [...] Total | appended report. These | | [facility] | | | | results have been [...] | | | Protein | | | [facility] | | | | | | MEDICAL | | | | | | CENTER - | | | | | | LABORATORY | | + + + + + + | AST | 37Comment: This is an | 10 - 42 U/L | [facility] | | | | appended report. These | | ST[facility] [...] | | appended report. These | | ST[facility] [...] | | bulin Ratio | | | [facility] | | | | | | MEDICAL | | | | | | CENTER - | | | | | | LABORATORY | | + + + + + + | BUN/Creatin | 9.8 | | [facility] | | | ine Ratio | | | [facility] | | [...] [address] | [place] | [phone] | | [facility] | | [address] | | | - LABORATORY | | | | + + + + + CBC with Differential (03/22/2017 6:29 PM PDT) + + + + + + | Component | Value | Ref Range | Performed | Pathologist | | | | | At | Signature | + + + + + + | White Blood | 9.6 | 4.0 - 11.0 K/uL | [facility] | | | Cells | | | [facility] | | | | | | MEDICAL | | | | | | CENTER - | | | | | | LABORATORY | | + + + + + + | Red Blood | 4.43 | 3.70 - 5.20 | [facility] | | | Cells | | M/uL | [facility] | [...] | | Eosinophils | | | [facility] | | [...] | 0.00 | 0.00 - 0.10 | [facility] | | | Basophils | | K/uL | [facility] | | | | | [...] [address] | [place] | [phone] | | [facility] | | [address] | | | - LABORATORY | | [...] +-------+------+------+ | diphenhydrAMINE (BENADRYL) | Given | 03/22/20 | 50 mg | | | | [...] | | | CT Contrast Study, Starting Sun | | | | | | | [...] | | | CT Contrast Study, Starting [place] | | | 03/22/17 at 1900, For 1 dose, | | | Radiology | | + +---+ | | | + +---+ + +-------+ +-------+---+---+ | ketorolac (TORADOL) injection | Given | 03/22/20 | 15 mg | | | | 15 mg 15 mg, Intravenous, ONCE, | | 17 7:08 | | | | | [place] 03/22/17 at 1900, For 1 dose | [...] | Intravenous, ONCE, 03/22/17 at | | | | | [...]
--- OUTSIDE RECORDS SUMMARY | ~2020-03-17 | XMS | Encounter Summary ---
Demographics + + + | Address | [address] | | | [place] [address] | + + + | Home Phone | | + + + | Preferred Language | Unknown | + + + | Marital Status | | + + + | Spiritism Affiliation | Unknown | + + + | Race | Unknown | + + + | Ethnic Group | Unknown | + + + Author + + + | Author | [facility] | | | and [place] | + + + | Organization | [facility] | | | and [...] | | [place] | | [place] [address] | | + + + + + | Gita Merino | ECON | [address] | | | | | [place], | | | | | [place] [address] | | + + + + + Care Team Providers + +------+ + | Care Pot Filler Name | Role | Phone | + +------+ + PCP | Unavailable | + +------+ + Encounter Details +--------+ + + + + | Date | Type | Department | Care Team | Description | +--------+ + + + + | 10/08/ | Hospital | [facility] | Wagner Pollock, | | | 2012 - | Encounter | MED CTR [facility] | [place] [address] | | | | | [place] [address] | [place] | | | 10/21/ | | [place] | [address] | | | 2012 | | [address] | [phone] | | | | | [phone] | | | +--------+ + + + [...] Ab | REFERENCE RANGE | | [facility] | | | | | | MEDICAL | | | | | | CENTER - | | | | | | LABORATORY | | + + + + + + | Thyroglobul | <0.1 (L)Comment: Testing | 1.2 - 35.0 | [facility] | | | in | Performed: [place] | ng/mL | [facility] | | | | [facility] | | MEDICAL | | | | [place], [address], | | CENTER - | | | | [place] [address] | | LABORATORY | | | | CLIA: [id number] | | | | + + + + + + + + | Specimen | + + | | + + + + + + + | Performing | Address | City/[facility] [place] | Phone Number | | Organization | | | | + + + + + | [facility] | [address] | [place], [place] | [phone] | | [facility] | | [address] | | | - LABORATORY | | | | + + + + + | [facility] | [address] | [place], [place] | | | [facility] | | [address], [facility] | | | - LABORATORY | | [...] | @VERIFIED BY DILUTION | uIU/mL | [facility] | | | | [facility] | | MEDICAL | | | [...] + | [facility] | [address] | [place] | [phone] | | [facility] | | [address] | | | - LABORATORY | | | | + + + + + | [facility] | [address] | [place], [place] | | | [facility] | | [id number] [place] [address] | | | - LABORATORY | | | | + + + + + documented in this encounter Visit Diagnoses Not on filedocumented in this encounter"
--- OUTSIDE RECORDS SUMMARY | ~2020-03-17 | XMS | Encounter Summary ---
Demographics + + + | Address | [address] | | | [place] [address] | + + + | Home Phone | | + + + | Preferred Language | Unknown | + + + | Marital Status | | + + + | Advent Affiliation | Unknown | + + + | Race | Unknown | + + + | Ethnic Group | Unknown | + + + Author + + + | Author | [facility] | | | and [place] | + + + | Organization | [facility] | | | and [place] [...] | | Kim | | [place] [address] | | + + + + + | Gita Merino | ECON | [address] | | | | | [place], | | | | | [place] [address] | | + + + + + Care Team Providers + +------+ + | Care Acetylene Torch Operator Name | Role | Phone | [...] + | 10/29/ | Office | [facility] | Ines Barker | Allergic rhinitis, | | 2019 | Visit | [place] [address] | [address] | unspecified | | | | [address] | [place]QUEZ | seasonality, | | | | [facility] | [place] [address] | unspecified trigger | | | | [place] [address] | [phone] | (Primary Dx) | | | | | | | +--------+---------+ + + + [...] in this encounter Patient Instructions Patient Instructions Ines Barker ARNP - 10/29/2018 6:51 PM PST Allergic Rhinitis [...] If you were referred to an al lergy specialist, make this appointment promptly. When to [...] the eyes or mouth Date Last Reviewed: 10/22/201619999838-4282 [employer]. [address] [place] [address], [place] [address]. All righ ts reserved. This information is [...] child gets plenty of rest. Keep your s nose clear. Use a rubber bulb [...] with rest and care from you. Daljit l your child'shefire[facility] campuscare provider if your child: Has a fever [...] the fingers or toes Date Last Reviewed: 08/24/201619996079-8954 [employer]. [address] [place] [address], [place] [address]. All righ ts reserved. This information is [...] has been changed since signin Order [facility] [place] ibuprofen (ADVIL, MOTRIN) 200 mg tablet (Taking) Take 400 mg by mouth Daily as needed. levothyroxine (SYNTHROID) 150 mcg tablet (Taking) levothyroxine (SYNTHROID) 200 mcg tablet (Taking/Discontinued) Take 125 mcg by mouth ever y morning (before breakfast). Number of times this order has been changed since signin Order [facility] [place] Past Medical History She has a past [...]
[~2020-03-17 16:32] MED LIST changes: +ULTRAM50 MG PO
== END 2020-03-17 19:03 | disposition home or self-care (01) ==
LOC: ED 16:32
DX: S83.005A Unspecified dislocation of left patella, initial encounter (principal); S93.402A Sprain of unspecified ligament of left ankle, initial encounter; Z88.8 Allergy status to other drugs, medicaments and biological substances; Z79.899 Other long term (current) drug therapy; W01.0XXA Fall on same level from slipping, tripping and stumbling without subsequent striking against object, initial encounter
CPT/HCPCS: 73560; 73610; 99283-25

== ENCOUNTER 2021-01-12 22:08 | Emergency (ER) | payer BC ==
[~2021-01-12] VITALS: Ht 170.2 cm; Wt 162.2 kg
[2021-01-13] MEDS ORDERED: DICLOFENAC SODI75 MG PO (01:09)
== END 2021-01-13 01:20 | disposition home or self-care (01) ==
LOC: ED 22:08
DX: M79.661 Pain in right lower leg (principal); Z88.8 Allergy status to other drugs, medicaments and biological substances
CPT/HCPCS: 81001; 93971; 99284-25

== ENCOUNTER 2021-04-20 14:17 | Emergency (ER) | payer BC ==
[~2021-04-20] VITALS: Ht 170.2 cm; Wt 158.8 kg
[~2021-04-20 14:17] MED LIST changes: +DICLOFENAC SODI75 MG PO
== END 2021-04-20 17:40 | disposition home or self-care (01) ==
LOC: ED 14:17
DX: R10.13 Epigastric pain (principal); Z85.850 Personal history of malignant neoplasm of thyroid; Z88.1 Allergy status to other antibiotic agents; Z88.8 Allergy status to other drugs, medicaments and biological substances; Z79.899 Other long term (current) drug therapy
CPT/HCPCS: 74177; 80053; 81001; 83690; 85025; 96375; 96376; 99284-25; J1170; J2405; Q9967

== ENCOUNTER 2021-08-07 22:15 | Emergency (ER) | payer BC ==
[~2021-08-07] VITALS: Ht 170.2 cm; Wt 158.8 kg
[2021-08-07] MEDS ORDERED: VALACYCLOVIR500 MG PO (22:34)
[2021-08-08] MEDS ORDERED: HYDROCODON-ACE1 EA10 PO (03:14)
[2021-08-08] MEDS ORDERED: PROTONIX40 MG PO (03:14)
== END 2021-08-08 03:24 | disposition home or self-care (01) ==
LOC: ED 22:15
DX: K30 Functional dyspepsia (principal); Z88.8 Allergy status to other drugs, medicaments and biological substances; Z79.899 Other long term (current) drug therapy
CPT/HCPCS: 74177; 80053; 81001; 85025; 96375; 96376; 99283-25; C9113; J1170; J2405; J7030; Q9967

== ENCOUNTER 2021-11-13 15:18 | Emergency (ER) | payer BC ==
[~2021-11-13] VITALS: Ht 170.2 cm; Wt 164.7 kg
[~2021-11-13 15:18] MED LIST changes: +HYDROCODON-ACE1 EA10 PO; +VALACYCLOVIR500 MG PO
--- OUTSIDE RECORDS SUMMARY | 2021-11-13 15:22 | XMS ---
PreManage Notification: MARANDA JOHNSON Security Security Dispatcher Events No recent Security Events currently on file CRITERIA MET - [facility] - 2 Visits in 30 Days CARE PROVIDERS JOVITA Mcallister MD,NICKI Control System Computer Scientist/Train Clerk Current PHONE: [phone] Nikita has no Care Guidelines for this patient. E.D. VISIT COUNT (12 MO.) [address] [facility] TOTAL 7 NOTE: Visits indicate total known visits. ED/UCC VISIT TRACKING (12 MO.) 11/13/2021 15:19 SALINA Peck TYPE: Emergency COMPLAINT: - CHEST PAIN, PAIN BOTH SIDES RIBCAGE [facility] DIAGNOSES: - Foot Pain - pain in both feet - Polyneuropathy, unspecified 08/15/2021 16[facility] DIAGNOSES: - Left Side Flank Pain - Other specified diseases of intestine - Abdominal Pain 08/07/2021 22:17 SALINA Peck TYPE: Emergency COMPLAINT: - PAIN, POSSIBLE SHINGLES DIAGNOSES: - Functional dyspepsia - Rash and other nonspecific skin eruption - Other exterminator helper (current) drug therapy - Allergy status to other drugs, medicaments and biological substances 04/20/2021 14:18 SALINA Mathew [place] TYPE: Emergency COMPLAINT: - ABD PN DIAGNOSES: - Other mcc (current) drug therapy - Allergy status to other drugs, medicaments and biological substances - Personal history of malignant neoplasm of thyroid - Allergy status to other antibiotic agents - Other acute postprocedural pain - Epigastric pain - Epigastric pain 02/02/2021 18:57 [facility] [place] TYPE: Emergency DIAGNOSES: - vaginal bleeding - Other specified abnormal uterine and vaginal bleeding 01/12/2021 22:09 SALINA Peck TYPE: Emergency COMPLAINT: - CALF PAIN DIAGNOSES: - Pain in right lower leg - Allergy status to other drugs, medicaments and biological substances INPATIENT VISIT TRACKING (12 MO.) No inpatient visits to display in this time frame [email or web address]
[2021-11-13] MEDS ORDERED: B12 ACTIVE1000 MCG PO (15:44)
[2021-11-13] MEDS ORDERED: MAGNESIUM400 M1 PO (15:44)
--- NOTE | 2021-11-13 17:15 | EKG ---
[facility] [address] [facility] [place] [address] Signed Normal sinus rhythm Minimal voltage criteria for LVH, may be normal variant ( R in aVL ) Nonspecific ST abnormality Abnormal ECG When compared with ECG of 13-NOV-2021 15:22, (Unconfirmed) No significant change was found Confirmed by TASNEEM SPEARS MD ([id number]) on 11/13/2021 5:15:43 PM Electronically Signed By: TASNEEM SPEARS MD 11/13/21 1715 PATIENT NAME: MARANDA JOHNSON Electrocardiogram DATE OF : 84 PHYSICIAN: TASNEEM SPEARS MD REPORT #: [id number] REPORT IS CONFIDENTIAL AND NOT TO BE RELEASED WITHOUT AUTHORIZATION
[2021-11-13] MEDS ORDERED: PROTONIX40 MG PO (18:29)
[2021-11-13] MEDS ORDERED: ANTACID MULTI-1 EACH PO (21:39)
[2021-11-13] MEDS ORDERED: TYLENOL EXTRA500 MG PO (21:39)
[2021-11-13] MEDS ORDERED: HEARTBURN PREVE20 MG PO (21:39)
[2021-11-13] MEDS ORDERED: IBU600 MG PO (21:39)
[2021-11-13] MEDS ORDERED: ONDANSETRON ODT4 MG PO (21:39)
== END 2021-11-13 22:43 | disposition home or self-care (01) ==
LOC: ED 15:18
DX: K27.9 Peptic ulcer, site unspecified, unspecified as acute or chronic, without hemorrhage or perforation (principal); R07.9 Chest pain, unspecified; Z85.850 Personal history of malignant neoplasm of thyroid; Z88.8 Allergy status to other drugs, medicaments and biological substances; Z79.899 Other long term (current) drug therapy
CPT/HCPCS: 36415; 71045; 71260; 80053; 83690; 83735; 84443; 84484; 85025; 85379; 93005; 93010; 99285-25; A9270; J2060; J7030; Q9967

== ENCOUNTER 2023-10-12 17:59 | Emergency (ER) | payer BC ==
[~2023-10-12] VITALS: Ht 170.2 cm; Wt 141.1 kg
[~2023-10-12 17:59] MED LIST changes: +ANTACID MULTI-1 EACH PO; +B12 ACTIVE1000 MCG PO; +CHLORTHALIDONE25 MG PO; +COLESTIPOL HCL1 GM PO; +EUTHYROX175 MCG PO; +HEARTBURN PREVE20 MG PO; +IBU600 MG PO; +K-TAB ER20 MEQ PO; +MAGNESIUM400 M1 PO; +METFORMIN HCL1000 MG PO; +ONDANSETRON ODT4 MG PO; +TRIAMTERENE-HC1 EAC1 PO; +TYLENOL EXTRA500 MG PO; +VITAMIN D21250 MCG PO
[2023-10-12 19:37] LABS: BILIRUBIN, URINE NEGATIVE (negative); BLOOD/HGB, URINE NEGATIVE (Negative); KETONE, URINE NEGATIVE (Negative); LEUK ESTERASE, URINE NEGATIVE (negative); NITRITE, URINE NEGATIVE (negative); PH, URINE 6.5 (5-7)
[2023-10-12 20:05] LABS: BASOPHILS 0.5 % (0-2); EOSINOPHILS 2.4 % (0-6); HEMATOCRIT 39.2 % (35.0-50.0); HEMOGLOBIN 12.9 g/dL (12.0-18.0); LYMPHOCYTES 24.6 % (24-44); MCH 26.9 (27-36); MCV 81.5 fl (81-99); MONOCYTES 7.7 % (0-12); NEUTROPHILS 64.8 % (39-80); PLATELET COUNT 368 K/uL (140-440); RDW 14.9 (10.5-15.0)
[2023-10-12 20:18] LABS: ALBUMIN 3.5 g/dL (3.4-5.0); ALBUMIN/GLOBULIN RATIO 0.7 (1.1-2.4); BILIRUBIN, TOTAL 0.4 ng/dL (0.2-1.0); BUN/CREATININE RATIO 13.33 (6.0-28.6); CALCIUM 9.9 mg/dL (8.5-10.1); CREATININE, SERUM 1.05 mg/dL (0.55-1.02); PROTEIN, TOTAL 8.5 g/dL (6.4-8.2)
[2023-10-12] MEDS ORDERED: KETOROLAC TROMETHAMINE 30 MG/ML VIAL IV ONE (21:00)
[2023-10-12] MEDS ORDERED: POTASSIUM CHLORIDE 10 MEQ TABCR PO ONE (21:00)
[2023-10-12] MEDS ORDERED: LACTATED RINGER'S 1,000 ML IV ONE (21:00)
[2023-10-12] MEDS ORDERED: MORPHINE SULFATE 4 MG/ML VIAL IV ONE (22:15)
[2023-10-12] MEDS ORDERED: ondansetron HCL 4 MG/2 ML VIAL IV ONE (22:15)
[2023-10-12 23:19] VITALS: BP 157/74
== END 2023-10-12 23:28 | disposition home or self-care (01) ==
LOC: ED 17:59
PROVIDERS: Internal Medicine
DX: R10.32 Left lower quadrant pain (principal); I10 Essential (primary) hypertension; R73.03 Prediabetes; Z88.1 Allergy status to other antibiotic agents; Z88.8 Allergy status to other drugs, medicaments and biological substances; Z88.2 Allergy status to sulfonamides; Z79.899 Other long term (current) drug therapy
CPT/HCPCS: 36415; 74177; 80053; 81003; 83735; 85025; 96375; 99284-25; A9270; J1885; J2270; J2405; J7121; Q9967

== ENCOUNTER 2024-03-26 22:00 | Emergency (ER) | payer BC ==
[~2024-03-26] VITALS: Ht 170.2 cm; Wt 143.9 kg
[2024-03-26] MEDS ORDERED: MOUNJARO10 MG/0.5 SUB-Q (22:45)
[2024-03-26] MEDS ORDERED: AMITRIPTYLINE H50 MG PO (22:47)
[2024-03-26] MEDS ORDERED: DICYCLOMINE HCL20 MG PO (22:47)
[2024-03-26] MEDS ORDERED: METOPROLOL SUC100 MG PO (22:47)
[2024-03-26 22:55] VITALS: BP 135/88
== END 2024-03-26 22:56 | disposition home or self-care (01) ==
LOC: ED 22:00
DX: M79.622 Pain in left upper arm (principal); T38.3X5A Adverse effect of insulin and oral hypoglycemic [antidiabetic] drugs, initial encounter; I10 Essential (primary) hypertension; Z88.8 Allergy status to other drugs, medicaments and biological substances; Z79.899 Other long term (current) drug therapy; Z79.890 Hormone replacement therapy
CPT/HCPCS: 99283

== ENCOUNTER 2024-11-14 18:06 | Emergency (ER) | payer BC ==
[~2024-11-14] VITALS: Ht 170.2 cm; Wt 142.2 kg
[~2024-11-14 18:06] MED LIST changes: +AMITRIPTYLINE H50 MG PO; +DICYCLOMINE HCL20 MG PO; +METOPROLOL SUC100 MG PO; +MOUNJARO10 MG/0.5 SUB-Q
[2024-11-14] MEDS ORDERED: OMEPRAZOLE20 MG (18:21)
[2024-11-14] MEDS ORDERED: FENOFIBRATE145 MG (18:21)
[2024-11-14] MEDS ORDERED: HYDROmorphone HCL 1 MG/ML SYR IV PRN (18:30)
[2024-11-14] MEDS ORDERED: SODIUM CHLORIDE 0.9% 1,000 ML IV ONE (18:30)
[2024-11-14 18:51] LABS: BASOPHILS 0.4 % (0-2); EOSINOPHILS 1.8 % (0-6); HEMATOCRIT 38.8 % (35.0-50.0); HEMOGLOBIN 13.2 g/dL (12.0-18.0); LYMPHOCYTES 22.8 % (24-44); MCH 26.9 (27-36); MCHC 33.9 g/dl (30-36); MCV 79.4 fl (81-99); PLATELET COUNT 413 K/uL (140-440); RBC 4.89 M/ul (4.3-5.7); RDW 14.5 (10.5-15.0)
[2024-11-14 18:51] LABS: BILIRUBIN, URINE NEGATIVE (negative); BLOOD/HGB, URINE NEGATIVE (Negative); KETONE, URINE NEGATIVE (Negative); LEUK ESTERASE, URINE NEGATIVE (negative); NITRITE, URINE NEGATIVE (negative)
[2024-11-14 19:06] LABS: ALBUMIN/GLOBULIN RATIO 0.87 (1.1-2.4); ANION GAP 16.8 (7-21); BILIRUBIN, TOTAL 0.5 mg/dL (0.2-1.0); BUN/CREATININE RATIO 11.01 (6.0-28.6); CALCIUM 9.6 mg/dL (8.5-10.1); CREATININE, SERUM 1.18 mg/dL (0.55-1.02); POTASSIUM 2.8 mmol/L (3.5-5.1); PROTEIN, TOTAL 8.6 g/dL (6.4-8.2)
[2024-11-14] MEDS ORDERED: LOMOTIL TABLET1 EACH PO (19:41)
[2024-11-14] MEDS ORDERED: ONDANSETRON ODT8 MG PO (19:41)
[2024-11-14] MEDS ORDERED: DIPHENOXYLATE/ATROPINE 1 EA TAB PO ONE (19:45)
[2024-11-14] MEDS ORDERED: HYDROCODONE BIT/ACETAMINOPHEN 5/325 MG 1 TAB HOME.PACK PO ONE (19:45)
[2024-11-14] MEDS ORDERED: POTASSIUM CHLORIDE 10 MEQ/100 ML BAG IV ONE (19:45)
[2024-11-14] MEDS ORDERED: POTASSIUM CHLORIDE 10 MEQ TABCR PO ONE (19:45)
[2024-11-14 20:58] VITALS: BP 132/70
== END 2024-11-14 21:13 | disposition home or self-care (01) ==
LOC: ED 18:06
PROVIDERS: Emergency Medicine
DX: R10.32 Left lower quadrant pain (principal); R10.12 Left upper quadrant pain; E87.6 Hypokalemia; Z88.8 Allergy status to other drugs, medicaments and biological substances; Z88.2 Allergy status to sulfonamides; I10 Essential (primary) hypertension
CPT/HCPCS: 36415; 80053; 81003; 83690; 84703; 85025; 96361; 96365; 96375; 96376; 99284-25; A9270; J1171; J3480; J7030

== ENCOUNTER 2025-07-31 22:09 | Emergency (ER) | payer BC ==
[~2025-07-31] VITALS: Ht 170.2 cm; Wt 143.2 kg
--- OUTSIDE RECORDS SUMMARY | ~2025-07-31 | XMS | Continuity of Care Document ---
Demographics + + + | Address | [address] | | | [place] [address] | + + + | Preferred Language | Unknown | + + + | Marital Status | | + + + | Buddhism Affiliation | Unknown | + + + | Race | White | + + + | Ethnic Group | Not or | + + + Author + + + | Author | [facility] | + + + | Organization | [facility] | + + + | Address | [address] | | | [place] [address] | + + + | Phone | | + + + Care Team Providers + + + + | Care Pillowcase Cleaner Name | Role | Phone | + + + + Unavailable | Unavailable | + + + + Allergies No information. Encounters No information. Functional Status No information. Immunizations No information. Medications + + + + | date | description | facility | + + + + | (no date) | COLESTIPOL HCL | [facility] | | | | [facility] | + + + + | (no date) | PHENAZOPYRIDINE HCL | [facility] | | | | [facility] | + + + + | (no date) | Mecobalamin | [facility] | | | | [facility] | + + + + | (no date) | Ergocalciferol (Vitamin | [facility] | | | D2) | [facility] | + + + + | (no date) | POTASSIUM CHLORIDE | [facility] | | | | [facility] | + + + + | (no date) | CHLORTHALIDONE | [facility] | | | | [facility] | + + + + | (no date) | IBUPROFEN | [facility] | | | | [facility] | + + + + | (no date) | OMEPRAZOLE | [facility] | | | | [facility] | + + + + | (no date) | MAGNESIUM OXIDE | [facility] | | | | [facility] | + + + + | (no date) | Tirzepatide | [facility] | | | | [facility] | + + + + | (no date) | | [facility] | | | TRIAMTERENE/HYDROCHLOROTHIA | [facility] | | | ZID | | + + + + | (no date) | VALACYCLOVIR HCL | [facility] | | | | [facility] | + + + + | (no date) | FENOFIBRATE | [facility] | | | NANOCRYSTALLIZED | [facility] | + + + + | (no date) | NITROFURANTOIN MONOHYD | [facility] | | | MACROCR | [facility] | + + + + | (no date) | CHOLESTYRAMINE | [facility] | | | | [facility] | + + + + | (no date) | AMITRIPTYLINE HCL | [facility] | | | | [facility] | + + + + | (no date) | METFORMIN HCL | [facility] | | | | [facility] | + + + + | (no date) | METOPROLOL SUCCINATE | [facility] | | | | [facility] | + + + + | (no date) | LEVOTHYROXINE SODIUM | [facility] | | | | [facility] | + + + + | (no date) | Levothyroxine Sodium | [facility] | | | | [facility] | + + + + | (no date) | DICYCLOMINE HCL | [facility] | | | | [facility] | + + + + Problems No information. Procedures No information. Results/Labs No information. Social History +--------+ + + | date | description | facility | +--------+ + + Vital Signs No information."
[~2025-07-31 22:09] MED LIST changes: +FENOFIBRATE145 MG; +LOMOTIL TABLET1 EACH PO; +OMEPRAZOLE20 MG; +ONDANSETRON ODT8 MG PO
[2025-07-31] MEDS ORDERED: ERYTHROMYCIN 3.5 GM HOME.PACK OP ONE (23:15)
[2025-07-31 23:26] VITALS: BP 135/85
== END 2025-07-31 23:27 | disposition home or self-care (01) ==
LOC: ED 22:09
DX: H00.011 Hordeolum externum right upper eyelid (principal); I10 Essential (primary) hypertension; Z90.710 Acquired absence of both cervix and uterus; Z88.8 Allergy status to other drugs, medicaments and biological substances; Z88.2 Allergy status to sulfonamides; Z79.899 Other long term (current) drug therapy
CPT/HCPCS: 99283